=== PATIENT | female | born 1935 | race Caucasian/White ===

== ENCOUNTER 2019-08-01 08:17 | Inpatient (IN) | payer MEDICARE, SELFPAY ==
[2019-08-01] VITALS (12 sets, daily range): BP systolic 141–158; BP diastolic 55–83; PULSE 66–85; RESP 14–22; TEMP 35.7–36.6; O2SAT 94–100; BMI 29.9
--- NOTE | ~2019-08-01 | CT_ITS ---
EXAMINATION: CT brain wo con INDICATION: Head injury COMPARISON: 03/04/2019 TECHNIQUE: Standard unenhanced head CT. The dose-length product (DLP) was 756.67 mGy-cm. The mA was a djusted according to patient size. Iterative reconstruction technique was employed. FINDINGS: There is no acute intraparenchymal hemorrhage. No evidence of mass lesion. No evidence of a cute infarction. There is moderate periventricular and subcortical hypodensity probably related to sm all vessel ischemic disease. There is moderate prominence of the sulci and ventricles related to cere bral atrophy. Intracranial calcified cerebral atherosclerosis is noted. There are no extra-axial kapil ections. There is no mass effect or midline shift. Changes in the globes are likely from ocular lens surgery. The visualized sinuses and mastoid air cells are well aerated. IMPRESSION: 1. No acute intracranial abnormality. 2. Age related findings. Reviewed, dictated and finalized at location A.
--- NOTE | ~2019-08-01 | XR_ITS ---
EXAMINATION: XR chest 2V DATE: 08/02/2019 08:34 INDICATION: Left pneumothorax. TECHNIQUE: Frontal and lateral views of the chest were obtained. COMPARISON: Chest single view 08/01/2019 FINDINGS: The patient is rotated to her left. Again seen is elevation of left hemidiaphragm. There ar e airspace opacities at left lung base. There is mild atelectasis in left perihilar region. A calcifi ed right lung nodule is consistent with old granulomatous disease. There is a small left pneumothorax . No pleural effusion. Again seen are multiple acute left rib fractures. There are multiple old heale d right rib fractures. The heart size is normal. IMPRESSION: 1. Small left pneumothorax with interval improvement. 2. Worsened airspace opacities at left lung base, consistent with atelectasis versus pneumonia. 3. Multiple acute left rib fractures again seen. Reviewed, dictated and finalized at location A. IMPRESSION: 1. Small left pneumothorax with interval improvement. 2. Worsened airspace opacities at left lung base, consistent with atelectasis v ersus pneumonia. 3. Multiple acute left rib fractures again seen.
--- NOTE | ~2019-08-01 | XR_ITS ---
EXAMINATION: XR shoulder LT min 2V DATE: 08/01/2019 08:47 INDICATION: Left shoulder pain. Fall. TECHNIQUE: 4 views of left shoulder were obtained. COMPARISON: Left shoulder radiographs 01/23/2014 FINDINGS: There are fractures of left fourth, fifth, sixth, and seventh ribs. There is a small left p neumothorax. There are airspace opacities in all left lung zones. There is mild osteoarthritis of gle nohumeral joint and acromioclavicular joint. IMPRESSION: 1. Small left pneumothorax. Airspace opacities in left lung may be atelectasis. 2. Acute fractures of left fourth-seventh ribs. 3. I discussed this case with Dr. Lyle on 08/01/19 at 8:54 AM. Reviewed, dictated and finalized at location A.
--- NOTE | ~2019-08-01 | CT_ITS ---
EXAMINATION: CT cervical spine wo con DATE: 08/01/2019 20:23 INDICATION: Left neck pain TECHNIQUE: Computed tomography (CT) of the cervical spine was performed without intravenous contrast. The dose-length product (DLP) was 132.74 mGy-cm. Automated exposure control and iterative reconstruc tion technique were employed. COMPARISON: 03/04/2019 FINDINGS: Again noted is chronic deformity of the dens, consistent with healed fracture. There are 2 mm of stable anterolisthesis of C4 on C5 and C5 on C6. There is unchanged moderate loss of interverte bral disc space height at C5-6 and mild loss of intervertebral disc space height throughout the remai nder of the cervical spine. The prevertebral soft tissues are normal. There is no acute fracture. Sma ll degenerative osteophytes project from the anterior endplates of multiple vertebral bodies. There i s severe facet osteoarthritis in the lower cervical spine. The prevertebral soft tissues are normal. A tiny left apical pneumothorax is noted. IMPRESSION: 1. Severe cervical spondylosis without acute findings. 2. Small left apical pneumothorax, known diagnosis. Reviewed, dictated and finalized at location A.
--- NOTE | ~2019-08-01 | XR_ITS ---
EXAMINATION: XR chest 1V portable DATE: 08/03/2019 06:13 INDICATION: Left pneumothorax. TECHNIQUE: A single frontal view of the chest was obtained. COMPARISON: Chest 2 views 08/02/2019 FINDINGS: The patient is rotated to her left. There is persistent elevation of left hemidiaphragm. Th ere is a small left pneumothorax. There are airspace opacities in left perihilar region and at left l olu base. The heart size is normal. There is gas in left lateral chest wall. There are multiple acute left rib fractures. There are multiple old healed right rib fractures. IMPRESSION: 1. Small left pneumothorax with interval improvement. 2. Worsened airspace opacities in left perihilar region and at left lung base, consistent with atelec tasis versus pneumonia. 3. Multiple acute left rib fractures again seen. Reviewed, dictated and finalized at location A. IMPRESSION: 1. Small left pneumothorax with interval improvement. 2. Worsened airspace opacities in left perihilar region and at left lung base, consistent with atelectasis versus pneumonia. 3. Multiple acute left rib fractures again seen.
--- NOTE | ~2019-08-01 | XR_ITS ---
EXAMINATION: XR elbow LT min 3V DATE: 08/01/2019 08:47 INDICATION: Left elbow pain. Fall. TECHNIQUE: 4 views of left elbow were obtained. COMPARISON: Left elbow radiographs 01/23/2014 FINDINGS: Bone alignment is normal. No fracture. Joint spaces are well maintained. There are enthesop hytes at medial and lateral humeral epicondyles. There is no elbow joint effusion. IMPRESSION: 1. No fracture. Reviewed, dictated and finalized at location A. IMPRESSION: 1. No fracture.
--- NOTE | ~2019-08-01 | XR_ITS ---
EXAMINATION: XR chest 1V portable DATE: 08/01/2019 09:12 INDICATION: Left pneumothorax. TECHNIQUE: A single frontal view of the chest was obtained. COMPARISON: Chest single view 08/02/2017, chest CT 03/28/2012 FINDINGS: There is worsened elevation of left hemidiaphragm. There is mild atelectasis at left lung b ase. Calcified right lung nodules are consistent with old granulomatous disease. No pleural effusion. There is a small left pneumothorax. There are acute fractures of left fourth-seventh ribs. There are multiple old healed right rib fractures. There is dextroscoliosis of thoracic spine. IMPRESSION: 1. Small left pneumothorax. 2. Acute fractures of left fourth-seventh ribs. 3. Worsened elevation of left hemidiaphragm. Mild atelectasis at left lung base. Reviewed, dictated and finalized at location A. IMPRESSION: 1. Small left pneumothorax. 2. Acute fractures of left fourth-seventh ribs. 3. Worsened elevation of left hemidiaphragm. Mild atelectasis at left lung base .
--- NOTE | ~2019-08-01 | US_ITS ---
EXAMINATION: US carotid duplex BI DATE: 08/02/2019 13:08 INDICATION: Syncope. Left hemiparesis. TECHNIQUE: Grayscale, color Doppler, and pulsed Doppler images of the cervical carotid arteries were obtained. The degree of vessel stenosis is placed in one of the following categories: normal, <50%, 5 0-69%, >=70% but less than near-occlusion, near-occlusion, or total occlusion. Note that percent sten osis relative to normal distal artery lumen diameter is indirectly measured from velocity measurement s as described by Tony, et al. Radiology 2003; [id number]. COMPARISON: None. FINDINGS: RIGHT: The right common carotid artery (CCA) peak systolic velocity (PSV) is 71 cm/s. The right internal car otid artery (ICA) PSV is 53 cm/s. The right ICA end-diastolic velocity (EDV) is 16 cm/s. The right IC A/CCA PSV ratio is 0.7. Grayscale and color Doppler images yield an estimate of <50% diameter reducti on from plaque in the ICA. There is antegrade flow in the right vertebral artery. LEFT: The left CCA PSV is 66 cm/s. The left ICA PSV is 60 cm/s. The left ICA EDV is 15 cm/s. The left ICA/C CA PSV ratio is 0.9. Grayscale and color Doppler images yield an estimate of <50% diameter reduction from plaque in the ICA. There is antegrade flow in the left vertebral artery. IMPRESSION: 1. <50% stenosis in the right internal carotid artery. 2. <50% stenosis in the left internal carotid artery. Reviewed, dictated and finalized at location A.
--- NOTE | 2019-08-01 08:26 | ED.FALL ---
HPI - Fall General Chief Complaint: Fall Stated Complaint: fall Time Seen by Provider: 08/01/19 08:24 Source: patient Mode of arrival: EMS Limitations: no limitations History of Present Illness HPI Narrative: An 84 y/o female pt presents to the ed via EMS from home with c/o ground-level fall in her home. Pt states that she was backing up with her walker and ran into her bookcase. She states she hit her lt shoulder on the bookcase and fell. She denies dizziness prior to falling, hitting her head or LOC. Pt notes pain to her lt shoulder, pain to her lt elbow, tingling to her LUE, but denies neck pain, CP or hip pain. She states that she was diaphoretic after falling, and states that she was unable to get up and walk after the fall. Pt rates her shoulder pain as a 10 on the pain scale. She notes a history of a broken neck in 2017, but denies any previous injury to her lt shoulder. She reports her rt hand as being her dominant hand. Pt reports being prescribed Gabapentin and Hydrocodone x several years. She notes taking Hydrocodone BID for chronic back pain and states that her last dose was last night and that she missed her morning dose today. Pt denies being prescribed anticoagulation therapy. complaint: fall Onset (ago): minute(s) Fall from: standing Place fall occurred: home Loss of consciousness: none Symptoms prior to fall: none Context: tripped/slipped Location of injury - extremities: Left: shoulder and elbow Severity scale (1-10): 10 Associated symptoms (after fall): unable to walk and other (diaphoretic, resolved) Related Data Home Medications Medication Instructions Recorded Confirmed ascorbic acid (vitamin C) [Vitamin 500 mg PO DAILY 08/01/19 08/01/19 C] yzlwouw-qidjtwerbaljp-kqlithla 1 tablet PO Q4-6H PRN 08/01/19 08/01/19 [Excedrin Migraine] calcium carbonate [Calcium 500] 500 mg PO QID 08/01/19 08/01/19 cholecalciferol (vitamin D3) 25 mcg PO DAILY 08/01/19 08/01/19 [Vitamin D3] coQ10 (ubiquinol) 50 mcg PO DAILY 08/01/19 08/01/19 fluticasone propionate 1 spray INTRANASAL DAILY 08/01/19 08/01/19 gabapentin 400 mg PO BID 08/01/19 08/01/19 garlic 200 mg PO DAILY 08/01/19 08/01/19 gelatin 650 mg PO DAILY 08/01/19 08/01/19 inulin [Fiber Gummies] g PO DAILY 08/01/19 lovastatin 40 mg PO DAILY 08/01/19 08/01/19 lutein 20 mg PO DAILY 08/01/19 08/01/19 montelukast 10 mg PO DAILY 08/01/19 08/01/19 multivit with min-folic acid 200 mcg PO DAILY 08/01/19 08/01/19 [Adult Multivitamin Gummies] pantoprazole 40 mg PO BID 08/01/19 08/01/19 tiotropium bromide [Spiriva 2 puff INHALATION HS 08/01/19 08/01/19 Respimat] vitamin E 400 unit PO DAILY 08/01/19 08/01/19 Allergies Allergy/AdvReac Type Severity Reaction Status Date / Time CAYETANO Inhibitors Allergy Severe Unknown Verified 08/01/19 08:29 meperidine Allergy Unknown Unknown Verified 08/01/19 08:29 Sulfa (Sulfonamide Allergy Unknown Unknown Verified 08/01/19 08:29 Antibiotics) sulfanilamide Allergy Unknown Unknown Verified 08/01/19 08:29 sulfur dioxide Allergy Unknown Unknown Verified 08/01/19 08:29 Review of Systems Review of Systems: All systems reviewed & are unremarkable except as noted in HPI and below Constitutional: Constitutional: Reports excessive sweating (after fall) Cardiovascular: Cardiovascular: Denies chest pain Musculoskeletal: Musculoskeletal: Reports arthralgias (lt shoulder, lt elbow), Denies neck pain, Reports tingling (to LUE) and Denies other (hip pain) Neurologic: Denies dizziness (prior to fall) and Denies other (LOC) [facility] Past Medical History Medical History (Updated 08/01/19 @ 15:43 by Francia Lyle MD) Asthma C2 cervical fracture Type 2 odontoid fracture sustained in fall 05/07/2016, requiring no cervical intervention. 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 Diastolic dysfunction without heart failure On echocardiogram in August 2011. Ejection fraction at that time was 54%. GERD (gastroesophag
[2019-08-01] MEDS: ONDANSETRON HCL ODT 4 MG TABLET PO (08:59)
--- NOTE | 2019-08-01 09:40 | ECG_ITS ---
Measurements Intervals [place] Rate: 70 P: 47 TN: 194 QRS: -1 QRSD: 77 T: 46 QT: 415 QTc: 448 Interpretive Statements SINUS RHYTHM WITH SINUS ARRHYTHMIA LOW QRS VOLTAGE IN LIMB LEADS BORDERLINE T WAVE ABNORMALITY- INFERIOR LEADS BASELINE ARTIFACT- I, II, AVR, AVF, V1 BORDERLINE ECG Electronically Signed On 08-01-2019 10:18:17 CDT by Adam Wynn D.O.
[2019-08-01 09:52] LABS: Basophils Percent Auto 0.3 % (0.2-1.2); Eosinophils Percent Auto 0.1 % (0-4.4); Hematocrit 46.5 % (37.0-47.0); Hemoglobin 15.4 g/dL (12.0-15.0); Immature Granulocyte Absolute 0.07 K/mm3 (0.00-0.031); Immature Granulocyte Percent A 0.5 % (0-0.5); Lymphocytes Absolute Auto 1.09 K/mm3 (0.9-3.2); Lymphocytes Percent Auto 7.9 % (18.3-44.2); Mean Corpuscular HGB Conc 33.1 g/dl (32-36); Mean Corpuscular Volume 90.6 fl (80-100); Mean Platelet Volume 10.4 fl (7.4-10.4); Monocytes Absolute Auto 0.6 K/mm3 (0.1-0.6); Monocytes Percent Auto 4.3 % (2.6-8.5); Neutrophils Absolute Auto 12.1 K/mm3 (1.3-6.7); Neutrophils Percent Auto 86.9 % (45.5-73.1); Platelet Count Result 200 k/mm3 (150-375); Red Blood Count 5.13 M/mm3 (4.2-5.4); Red Cell Distribution Width 13.1 % (11.5-14.5); White Blood Count 13.9 K/mm3 (4.5-10.0)
[2019-08-01 10:02] LABS: Prothrombin Time 12.5 Seconds (11.1-14.7)
[2019-08-01 10:04] LABS: Alanine Aminotransferase 15 U/L (4-35); Albumin Level 4.2 g/dL (3.5-5.1); Alkaline Phosphatase 61 U/L (38-126); Aspartate Amino Transferase 27 U/L (14-36); Bilirubin,Total 0.7 mg/dL (0.2-1.3); Blood Urea Nitrogen 14 mg/dL (7-17); Calcium 9.4 mg/dL (8.4-10.2); Carbon Dioxide 28 mmol/L (22-30); Chloride 102 mmol/L (98-107); Estimated Glomerular Filt Rate > 60; Glucose 108 mg/dL (65-105); Potassium 4.2 mmol/L (3.4-5.0); Sodium 137 mmol/L (137-145)
--- NOTE | 2019-08-01 11:32 | ADMGEN ---
This patient, Mitra Verde, was admitted to Medical Room 253-01. Patient/family oriented to hospital policies and general routines including ID bracelet, bed and alarms, visiting hours, pain management, procedures, bathroom and other care routines, personal items, smoking policy, room service/diet, and visiting hours. Valuables list has been completed. Information on how to activate the Rapid Response Team has been discussed. Patient/Family are encouraged to report perceived risks to care and to ask questions if they do not understand what they are told or what they should do.
[2019-08-01] MEDS: ONDANSETRON INJ 4 MG/2 ML VIAL IV PUSH (11:45)
[2019-08-01] MEDS: MORPHINE SULFATE 2 MG/ML INJ IV PUSH ×2 (11:45→19:57)
--- NOTE | 2019-08-01 11:52 | PM.IMHP ---
H&P: HPI History of Present Illness Chief complaint: Lt Pneumothorax Narrative: Mitra Verde is a 84 year old female who presented to the ED today after a fall at home occuring at about 7 AM this morning. Pt's daughter wasat bedside in the ED and stated the pt's legs give out often and this is not her first fall, however she usually remembers falling. Pt lives alone and has LifeAlert but she was able to get up by herself after today's fall and call her daughter. Pt ambulated into the ED with a walker. Pt c/o SOB but states she has this all the time. She reports a HI, a dry cough, and a PMHx of osteoporosis wiht two previous knee repalacements, but denies neck pain and N/V. Pt is on Gabapentin and ASA 250 mg along with Protonix for reflux and a lipid lowering drug. She also has chronic back pain for which she takes Carleton for fairly frequently. Review of Systems Constitutional: Constitutional: Reports no additional constitutional complaints, Reports fatigue and Denies malaise Eyes: Eyes: Denies change in vision and Denies loss of vision ENT: Reports Normal hearing present, Denies change in voice, Denies dizziness, Denies hoarseness and Denies sore throat Cardiovascular: Cardiovascular: Denies chest pain, Denies leg edema and Denies dyspnea Respiratory: Respiratory: Denies cough, Denies dyspnea and Denies wheezing Gastrointestinal: Gastrointestinal: Denies hematochezia, Denies change in bowel habits and Denies heartburn Comments: States she typically has a bowel movement about every other day. She typically takes Senokot will every other day to try to keep her stool soft. She did not take Senokot today but did take it yesterday. Genitourinary: Genitourinary: Denies urinary frequency and Denies urinary incontinence Musculoskeletal: Musculoskeletal: Reports back pain and Reports arthralgias Comments: Patient has a long history of degenerative disc disease. She takes Carleton at home for this. Neurologic: Reports Normal hearing present, Denies confusion, Denies dizziness, Denies loss of vision, Denies memory loss and Denies seizure-like activity Psychiatric: Psychiatric: Denies confusion, Denies depression and Denies memory loss Endocrine: Endocrine: Denies cold intolerance and Reports fatigue Hematologic/Lymphatic: Hematologic/Lymphatic: Denies easy bleeding and Denies easy bruising Allergic/Immunologic: Allergic/Immunologic: Denies wheezing PMFSH Past Medical History Medical History Arthritis Asthma Fibroids breast fibroids Hypertension Osteoporosis Uterine cancer Wears glasses Surgical History Surgical History History of bilateral knee replacement History of hysterectomy Social History Social History Smoking status: Former smoker Smoking end date: 04/26/1962 Alcohol intake: never Substance use: never Gender identity (if verbalized by the patient): Female Spiritual care concerns: No Agree to blood products: Yes Meds Home Medications and Allergies Home Medications Medication Instructions Recorded Confirmed Type ascorbic acid (vitamin C) [Vitamin 500 mg PO DAILY 08/01/19 08/01/19 History C] ragzwed-qbqtodfmgkhai-tlzqshxe 1 tablet PO Q4-6H PRN 08/01/19 08/01/19 History [Excedrin Migraine] calcium carbonate [Calcium 500] 500 mg PO QID 08/01/19 08/01/19 History cholecalciferol (vitamin D3) 25 mcg PO DAILY 08/01/19 08/01/19 History [Vitamin D3] coQ10 (ubiquinol) 50 mcg PO DAILY 08/01/19 08/01/19 History fluticasone propionate 1 spray INTRANASAL DAILY 08/01/19 08/01/19 History gabapentin 400 mg PO BID 08/01/19 08/01/19 History garlic 200 mg PO DAILY 08/01/19 08/01/19 History gelatin 650 mg PO DAILY 08/01/19 08/01/19 History inulin [Fiber Gummies] g PO DAILY 08/01/19 History lovastatin 40 mg PO DAILY 08/01/19
[2019-08-01] MEDS: FLUTICASONE PROPIONATE 0.05% NA SPR 16 GM BTL (*BKC) 1 SPRAY NASAL (13:43)
[2019-08-01] MEDS: IBUPROFEN 600 MG TABLET PO ×3 (13:43→23:47)
[2019-08-01] MEDS: LOVASTATIN 20 MG TABLET 40 MG PO (13:44)
[2019-08-01] MEDS: ASCORBIC ACID 500 MG TABLET PO (13:45)
[2019-08-01] MEDS: polyethylene glycoL 3350 17 GM POWD.PACK PO (13:45)
[2019-08-01] MEDS: MONTELUKAST SODIUM 10 MG TABLET PO (13:45)
[2019-08-01] MEDS: ENOXAPARIN 40 MG/0.4 ML SYRINGE SUB-Q (13:45)
--- NOTE | 2019-08-01 14:11 | PC.NURSE ---
Call to Dr. Gongora's office to clarify orders for chest tube set up at bedside. Orders in for 18, 20, 22 chest tubes with chest tube insertion tray. Hospital does not stock size 18, 22 chest tubes. Awaiting call back for clarification. Size 20 chest tube and chest tube insertion tray at bedside with 14 gauge angiocath.
--- NOTE | 2019-08-01 15:00 | WPDCN ---
Assessment and Plan Assessment and plan (1) Traumatic fracture of ribs of left side with pneumothorax: Onset Date: ~08/01/19 Code(s): S22.42XA - Multiple fractures of ribs, left side, initial encounter for closed fracture; S27.0XXA - Traumatic pneumothorax, initial encounter Status: Acute Assessment and Plan: Sustained in a mechanical fall earlier today. Small pneumothorax noted on imaging, management per surgery. Encourage incentive spirometry. Brain CT and cervical spine CT ordered given head trauma, and history of cervical fractures. (2) Asthma: Code(s): J45.909 - Unspecified asthma, uncomplicated Status: Acute Assessment and Plan: No acute issues. Continue maintenance inhalers. (3) Hyperlipidemia: Onset Date: Unknown Code(s): E78.5 - Hyperlipidemia, unspecified Status: Acute Assessment and Plan: Continue lovastatin. LFTs within normal limits. (4) GERD (gastroesophageal reflux disease): Code(s): K21.9 - Gastro-esophageal reflux disease without esophagitis Status: Acute Assessment and Plan: Continue pantoprazole. (5) Leukocytosis: Code(s): D72.829 - Elevated white blood cell count, unspecified Status: Acute Assessment and Plan: She gives no history to suggest underlying infection. Possibly just a stress response. (6) Essential hypertension: Code(s): I10 - Essential (primary) hypertension Status: Acute Assessment and Plan: After weight loss, the patient is no longer on antihypertensives. Blood pressures were reviewed and they are relatively well controlled with systolics in the 140s mainly. Likely these are elevated due to pain, and we will just continue to monitor for now. Additional Plan Thank you for allowing us to participate in this patient's care. Do not hesitate to contact us with any questions. We will follow with you. Supervising physician for this medical consultation is Dr. Mukund Martin. HPI Data of Consult Date/Time: 08/01/19 13:15 Requesting Physician: Devendra Gongora MD Primary Care Provider: PHYSICIAN NOT ON STAFF Consult Narrative Narrative: Mitra Verde is an 84-year-old female whom the hospitalist service has been consulted for hypertension. Prior to arrival she was ambulating backwards with her walker, when she fell backwards, hitting the left side of her upper body on a bookcase before falling to the ground. She was unable to get herself up in used Life Alert to call for help. She was found to have left rib fractures and a small pneumothorax, prompting her admission. At the time my evaluation, she complains of pain about her left shoulder and into the left side of the posterior neck, and in fact she is having a difficult time raising her left arm forward due to pain. She did hit her head in the fall, but did not sustain any abrasions or hematoma at that site. She denies feeling lightheaded and dizzy prior to the fall, stating it was simply a mechanical fall. There was no loss of consciousness. In any event, her blood pressures have been in the 140s to 150 systolic. With further questioning, she does mention being on antihypertensives in the past, but she lost weight and has been off of those medications for about a year or so. Review of Systems Review of Systems: Narrative: Twelve systems were reviewed with pertinent positives and negatives as per HPI. She denies feeling lightheaded and dizzy prior to the fall. No vertigo. No diplopia. She denies focal weakness and paresthesias. No fever, chills, or sweats. She denies sinus congestion, rhinorrhea, otalgia, and odynophagia. No cough. No chest pain or shortness of breath. Appetite is stable. She denies nausea, vomiting, and diarrhea. No dysuria, urgency, or hesitancy. Except as documented, all other systems were reviewed and are negative. [facility] Past
[2019-08-01] MEDS: PANTOPRAZOLE 40 MG TABLET PO (16:13)
[2019-08-01] MEDS: DOCUSATE SODIUM 100 MG CAPSULE PO (16:13)
--- NOTE | 2019-08-01 16:18 | PC.NURSE ---
Per patient her son Medardo can bring her spiriva respimat from home for use during hospital stay.
--- NOTE | 2019-08-01 17:40 | PC.NURSE ---
Patient's home medication spiriva respimat sent to pharmacy for verification to use during hospitalization.
--- NOTE | 2019-08-01 18:04 | PHAR ---
The patient's home med of Spiriva Respimat has been verified.
[2019-08-01] MEDS: GABAPENTIN 400 MG CAPSULE PO (20:51)
--- NOTE | 2019-08-01 21:51 | PCRCNOTE ---
Patient refused to use our Albuterol inhaler. Patient brought her Spiriva Respimat inhaler from home, which she wanted to use. It was administered at 2019July 31.
[2019-08-02] VITALS (12 sets, daily range): BP systolic 102–141; BP diastolic 47–86; PULSE 45–93; RESP 16–20; TEMP 36.1–36.7; O2SAT 94–98
[2019-08-02 00:13] LABS: Add Urine Microscopic? YES; Appearance Urine Cloudy (Clear); Bacteria Urine Trace /hpf; Bilirubin Urine Negative (Negative); Blood Urine Negative (Negative); Glucose Urine UA Negative (Negative); Ketones Urine 1+ mg/dL (Negative); Leukocyte Esterase Ur Negative LEU/UL (Negative); Mucus Urine Heavy /lpf; Nitrate Urine Negative (Negative); Protein Urine 1+ mg/dL (Negative); RBC Urine 0-2 /hpf (0-2); Specific Grav Ur 1.026 (1.001-1.035); Squamous Epithelial Cell Urine Occasional /hpf (Few)
[2019-08-02 00:14] LABS: Color Urine Yellow (Yellow)
[2019-08-02 05:10] LABS: Basophils Percent Auto 0.3 % (0.2-1.2); Eosinophils Absolute Auto 0.1 K/mm3 (0-0.3); Eosinophils Percent Auto 0.9 % (0-4.4); Hematocrit 39.1 % (37.0-47.0); Hemoglobin 12.6 g/dL (12.0-15.0); Immature Granulocyte Absolute 0.06 K/mm3 (0.00-0.031); Immature Granulocyte Percent A 0.7 % (0-0.5); Lymphocytes Absolute Auto 1.79 K/mm3 (0.9-3.2); Lymphocytes Percent Auto 20.4 % (18.3-44.2); Mean Corpuscular HGB Conc 32.2 g/dl (32-36); Mean Corpuscular Hemoglobin 29.7 pg (26-34); Mean Corpuscular Volume 92.2 fl (80-100); Mean Platelet Volume 10.5 fl (7.4-10.4); Monocytes Absolute Auto 0.8 K/mm3 (0.1-0.6); Monocytes Percent Auto 9.2 % (2.6-8.5); Neutrophils Percent Auto 68.5 % (45.5-73.1); Platelet Count Result 158 k/mm3 (150-375); Red Blood Count 4.24 M/mm3 (4.2-5.4); Red Cell Distribution Width 13.2 % (11.5-14.5); White Blood Count 8.8 K/mm3 (4.5-10.0)
[2019-08-02 05:32] LABS: Blood Urea Nitrogen 19 mg/dL (7-17); Calcium 8.5 mg/dL (8.4-10.2); Carbon Dioxide 28 mmol/L (22-30); Chloride 100 mmol/L (98-107); Estimated CRCL calculation 47 ml/min; Estimated Glomerular Filt Rate > 60; Glucose 102 mg/dL (65-105); Magnesium 1.9 mg/dL (1.6-2.3); Potassium 4.1 mmol/L (3.4-5.0); Sodium 132 mmol/L (137-145)
[2019-08-02] MEDS: IBUPROFEN 600 MG TABLET PO ×3 (05:56→17:09)
--- NOTE | 2019-08-02 08:00 | PC.NURSE ---
Patient to XR per stretcher
[2019-08-02] MEDS: GABAPENTIN 400 MG CAPSULE PO ×2 (09:11→20:37)
[2019-08-02] MEDS: MONTELUKAST SODIUM 10 MG TABLET PO (09:11)
[2019-08-02] MEDS: PANTOPRAZOLE 40 MG TABLET PO ×2 (09:11→17:09)
[2019-08-02] MEDS: DOCUSATE SODIUM 100 MG CAPSULE PO ×2 (09:11→17:09)
[2019-08-02] MEDS: polyethylene glycoL 3350 17 GM POWD.PACK PO (09:12)
[2019-08-02] MEDS: LOVASTATIN 20 MG TABLET 40 MG PO (09:12)
[2019-08-02] MEDS: ASCORBIC ACID 500 MG TABLET PO (09:12)
[2019-08-02] MEDS: ENOXAPARIN 40 MG/0.4 ML SYRINGE SUB-Q (09:12)
[2019-08-02] MEDS: FLUTICASONE PROPIONATE 0.05% NA SPR 16 GM BTL (*BKC) 1 SPRAY NASAL (09:13)
--- NOTE | 2019-08-02 10:35 | PC.NURSE ---
Rapid response called. Patient was up in the chair. M[employer] BE[employer]TER was getting vital signs and she was talking to her and then she slumped over in the chair and stopped talking. Patient returned to bed with staff assist. See Rapid response documentation.
[2019-08-02 10:46] LABS: Glucose Point of Care 106 (65-105)
--- NOTE | 2019-08-02 10:48 | ECG_ITS ---
Measurements Intervals [place] Rate: 72 P: -4 SD: 192 QRS: -12 QRSD: 67 T: 29 QT: 373 QTc: 411 Interpretive Statements SINUS RHYTHM DELAYED PRECORDIAL R/S TRANSITION INFERIOR INFARCT, AGE INDETERMINATE BASELINE ARTIFACT- V6 ABNORMAL ECG Electronically Signed On 08-02-2019 11:46:01 CDT by Adam Wynn D.O.
[2019-08-02] MEDS: SODIUM CHLORIDE 0.9% IV 500 ML IV CONT (11:05)
--- NOTE | 2019-08-02 12:05 | PM.IMPN ---
Progress Note: A&P Assessment and Plan (1) Traumatic fracture of ribs of left side with pneumothorax: Onset Date: ~08/01/19 Code(s): S22.42XA - Multiple fractures of ribs, left side, initial encounter for closed fracture; S27.0XXA - Traumatic pneumothorax, initial encounter Status: Acute Assessment and Plan: Sustained by mechanical fall. Small pneumothorax noted on imaging, management per surgery. Atelectasis on imaging. Continue to encourage incentive spirometry. CT brain obtained due to fall shows no acute intracranial abnormality. CT C-spine shows severe spondylosis with no acute fractures. (2) Syncope: Qualifiers: Syncope type: unspecified Qualified Code(s): R55 - Syncope and collapse Code(s): R55 - Syncope and collapse Status: Acute Assessment and Plan: Rapid response called at 10:35 AM when patient was sitting up in bedside chair and per nursing, became less responsive and clammy. She was moved back to bed and woke up, became more responsive. Blood sugar 106. Blood pressure 113/50. O2 saturation 96% on 2L, pulse 61bpm. On reassessment, she is awake and oriented x4. 500 mL NS bolus ordered. Carotid Dopplers are within normal limits. Repeat EKG reviewed and looks similar compared to yesterday's EKG; she has no chest pain other than her left lateral rib pain. She had a CT brain obtained last night with no acute findings. Suspect vasovagal syncope. Will monitor. Patient is modifed code status, medications only. (3) Essential hypertension: Code(s): I10 - Essential (primary) hypertension Status: Acute Assessment and Plan: Patient noted that she had previously been on antihypertensive medication that was subsequently discontinued after her weight loss. Blood pressures reviewed; were bit elevated yesterday likely secondary to pain. Today BP on the lower end of normal. 500 mL normal saline bolus administered and monitor BP. (4) Asthma: Qualifiers: Asthma complication type: uncomplicated Asthma persistence: intermittent Asthma severity: mild Qualified Code(s): J45.20 - Mild intermittent asthma, uncomplicated Code(s): J45.909 - Unspecified asthma, uncomplicated Status: Chronic Assessment and Plan: No acute issues. Continue albuterol inhaler. (5) Hyperlipidemia: Onset Date: Unknown Qualifiers: Hyperlipidemia type: unspecified Qualified Code(s): E78.5 - Hyperlipidemia, unspecified Code(s): E78.5 - Hyperlipidemia, unspecified Status: Chronic Assessment and Plan: Continue home statin therapy. (6) GERD (gastroesophageal reflux disease): Qualifiers: Esophagitis presence: without esophagitis Qualified Code(s): K21.9 - Gastro-esophageal reflux disease without esophagitis Code(s): K21.9 - Gastro-esophageal reflux disease without esophagitis Status: Chronic Assessment and Plan: No acute issues. Continue pantoprazole. (7) Leukocytosis: Qualifiers: Leukocytosis type: unspecified Qualified Code(s): D72.829 - Elevated white blood cell count, unspecified Code(s): D72.829 - Elevated white blood cell count, unspecified Status: Resolved Assessment and Plan: Resolved today. No infectious process is suspected at this time. May be related to stress reaction. Additional Plan Thank you for allowing me to participate this patient's care. Will follow with you while she is here. Subjective Date/time seen: 08/02/19 0930 Interval history: Ms. Verde is an 84yo F admitted due to a small pneumothorax after a fall. She reported feeling well other than her left-sided rib pain. She denied feeling short of breath, no cough. To
--- NOTE | 2019-08-02 17:54 | PM.PNGS ---
Progress Note: A&P Assessment and Plan (1) Traumatic fracture of ribs of left side with pneumothorax: Onset Date: ~08/01/19 Code(s): S22.42XA - Multiple fractures of ribs, left side, initial encounter for closed fracture; S27.0XXA - Traumatic pneumothorax, initial encounter Status: Acute Assessment and Plan: Have ordered a chest x-ray again for tomorrow morning. From my point of view if this is stable patient does not need further monitoring. Could go home on a pain medicine regimen for her rib fractures if she passes physical therapy tests for stability with her walker. Not If not patient should be considered for a rehab/ ECF stay. (2) Left rib fracture: Onset Date: ~08/01/19 Code(s): S22.32XA - Fracture of one rib, left side, initial encounter for closed fracture Status: Acute Assessment and Plan: Stable, pain control fairly good (3) Fall from ground level: Onset Date: ~08/01/19 Code(s): W18.30XA - Fall on same level, unspecified, initial encounter Status: Acute Assessment and Plan: Some soreness in her left shoulder but x-ray showed no fractures. Working with physical therapy. (4) Syncope: Onset Date: ~08/02/19 Qualifiers: Syncope type: unspecified Qualified Code(s): R55 - Syncope and collapse Code(s): R55 - Syncope and collapse Status: Acute Assessment and Plan: See medicine note for rapid response issues Additional Plan Repeat chest x-ray in the morning. Await further medicine evaluation regarding the possibility of vasovagal versus arrhythmias as a cause for syncope and possibly cause for her original fall. Continue PT with home evaluation for saftey. Encourage IS Subjective Subjective Date/Time Seen: 08/02/19 17:54 Pt. resting easily when I entered the room. Denies pain. Has an appetite. Review of Systems Constitutional: Constitutional: Reports no additional constitutional complaints ENT: Reports other (Mucous Membranes moist.) Cardiovascular: Cardiovascular: Denies dyspnea Respiratory: Respiratory: Denies pain on inspiration and Denies dyspnea Musculoskeletal: Musculoskeletal: Reports other (No calf swelling or edema) Integumentary/Breasts: Skin/Breast: Reports system reviewed and no additional complaints, except as docu Exam Const: General: cooperative, no acute distress, alert and awake Orientation/consciousness: patient oriented x3 HENMT: Mouth: Yes moist mucous membranes Neck: Neck: normal visual inspection Chest: Chest palpation & inspection: normal inspection of the chest Resp: Effort & Inspection: normal respiratory effort Auscultation: clear to auscultation bilaterally Cardio: Jugular venous distension: no JVD Rate: regular rate Rhythm: regular rhythm GI: Rectal Exam: deferred Psych: Mental Status: mental status grossly normal Speech and movement: Normal speech and movement present Affect: normal affect Thought content: Yes Normal thought content present Objective Data Vital Signs Vital Signs: Vital Signs - 24 hr 08/01/19 21:41 08/01/19 22:00 08/02/19 02:00 Temperature 35.7 C L 36.1 C L Pulse Rate 78 85 93 Respiratory Rate 16 20 Blood Pressure 146/79 H 141/86 H Pulse Oximetry 95 95 98 08/02/19 06:00 08/02/19 10:32 08/02/19 10:41 Temperature 36.7 C 36.3 C L Pulse Rate 76 45 L 59 L Respiratory Rate 20 16 16 Blood Pressure 124/68 113/50 L 111/50 L Pulse Oximetry 98 96 97 08/02/19 11:05 08/02/19 12:00 08/02/19 13:19 Temperature Pulse Rate 61 68 79 Respiratory Rate 17 Blood Pressure 113/50 L 115/47 L Pulse Oximetry 97 08/02/19 15:27 08/02/19 16:00 Temperature 36.6 C Pulse Rate 84 77 Respiratory Rate 18 Blood Pressure 120/74 Pulse Oximetry 95 Intake/Output Intake/Output: Intake & Output 07/30/19 07/31/19 08/01/19 08/02/19 23:59 23:59 23:59 23:59 Intake Total 680 1190 Output Total 350 1075 Balance 330 115
[2019-08-02] MEDS: ALBUTEROL SULFATE (*SP) AEROSOL 1 PUFF 2 PUFF INHALATION (20:13)
[2019-08-03] VITALS (11 sets, daily range): BP systolic 95–129; BP diastolic 51–63; PULSE 56–96; RESP 16–20; TEMP 36.4–36.8; O2SAT 92–98
[2019-08-03] MEDS: IBUPROFEN 600 MG TABLET PO ×3 (00:35→12:23)
[2019-08-03] MEDS: FLUTICASONE PROPIONATE 0.05% NA SPR 16 GM BTL (*BKC) 1 SPRAY NASAL (08:24)
[2019-08-03] MEDS: MONTELUKAST SODIUM 10 MG TABLET PO (08:24)
[2019-08-03] MEDS: ENOXAPARIN 40 MG/0.4 ML SYRINGE SUB-Q (08:24)
[2019-08-03] MEDS: PANTOPRAZOLE 40 MG TABLET PO (08:24)
[2019-08-03] MEDS: GABAPENTIN 400 MG CAPSULE PO (08:24)
[2019-08-03] MEDS: ASCORBIC ACID 500 MG TABLET PO (08:24)
[2019-08-03] MEDS: LOVASTATIN 20 MG TABLET 40 MG PO (08:24)
[2019-08-03] MEDS: polyethylene glycoL 3350 17 GM POWD.PACK PO (08:24)
[2019-08-03] MEDS: DOCUSATE SODIUM 100 MG CAPSULE PO (08:25)
[2019-08-03] MEDS: ALBUTEROL SULFATE (*SP) AEROSOL 1 PUFF 2 PUFF INHALATION ×3 (08:53→15:58)
--- NOTE | 2019-08-03 09:02 | PM.PNGS ---
Progress Note: A&P Assessment and Plan (1) Left rib fracture: Onset Date: ~08/01/19 Code(s): S22.32XA - Fracture of one rib, left side, initial encounter for closed fracture Status: Acute Assessment and Plan: Stable, pain control fairly good (2) Fall from ground level: Onset Date: ~08/01/19 Code(s): W18.30XA - Fall on same level, unspecified, initial encounter Status: Acute Assessment and Plan: Some soreness in her left shoulder but x-ray showed no fractures. Working with physical therapy. (3) Syncope: Onset Date: ~08/02/19 Qualifiers: Syncope type: unspecified Qualified Code(s): R55 - Syncope and collapse Code(s): R55 - Syncope and collapse Status: Acute Assessment and Plan: See medicine note for rapid response issues (4) Traumatic fracture of ribs of left side with pneumothorax: Onset Date: ~08/01/19 Code(s): S22.42XA - Multiple fractures of ribs, left side, initial encounter for closed fracture; S27.0XXA - Traumatic pneumothorax, initial encounter Status: Acute Assessment and Plan: Pneumothorax appears to be stable. Rib fractures stable. No need to continue daily chest x-rays. Once patient is mobile enough to go to extended care rehab would recommend that. Will need chronic pain control for fractured ribs for the next 4-6 weeks. Additional Plan Repeat chest x-ray in about a week as an out pt. Await further medicine evaluation regarding the possibility of vasovagal versus arrhythmias as a cause for syncope and possibly cause for her original fall. Continue PT with home evaluation for saftey. Encourage IS in view of CXR findings. Okay with me to go to extended care rehab today or tomorrow as per Medicine. Subjective Subjective Date/Time Seen: 08/03/19 09:02 Patient lying in bed when I entered the room. Denies abdominal pain. States she has some shortness of breath periodically but it is not bad. Appears to be off oxygen now. I explained what her chest x-ray is showing. Left pneumothorax is getting smaller. There are some signs of atelectasis versus pneumonia. Patient states she does not feel safe going home and is willing to go to an extended care facility rehab. Hopefully case management is working on same. Review of Systems Constitutional: Constitutional: Reports no additional constitutional complaints, Reports fatigue and Denies malaise Eyes: Eyes: Denies change in vision and Denies loss of vision ENT: Reports Normal hearing present, Denies change in voice, Denies dizziness, Denies hoarseness, Denies sore throat and Reports other (Mucous Membranes moist.) Cardiovascular: Cardiovascular: Denies chest pain, Denies leg edema and Denies dyspnea Respiratory: Respiratory: Denies cough, Denies pain on inspiration, Denies dyspnea and Denies wheezing Gastrointestinal: Gastrointestinal: Denies hematochezia, Denies change in bowel habits and Denies heartburn Genitourinary: Genitourinary: Denies urinary frequency and Denies urinary incontinence Musculoskeletal: Musculoskeletal: Reports back pain, Reports arthralgias and Reports other (No calf swelling or edema) Integumentary/Breasts: Skin/Breast: Reports system reviewed and no additional complaints, except as docu Neurologic: Reports Normal hearing present, Denies confusion, Denies dizziness, Denies loss of vision, Denies memory loss and Denies seizure-like activity Psychiatric: Psychiatric: Denies confusion, Denies depression and Denies memory loss Endocrine: Endocrine: Denies cold intolerance and Reports fatigue Hematologic/Lymphatic: Hematologic/Lymphatic: Denies easy bleeding and Denies easy bruising Allergic/Immunologic: Allergic/Immunologic: Denies wheezing Exam Const: General: cooperative, no acute distress, alert and awake; No confusion Orientation/consciousness: patient oriented x3 and No confusion HENMT: Mouth: Yes moist mucous membranes
--- NOTE | 2019-08-03 10:48 | PM.IMPN ---
Progress Note: A&P Assessment and Plan (1) Traumatic fracture of ribs of left side with pneumothorax: Onset Date: ~08/01/19 Code(s): S22.42XA - Multiple fractures of ribs, left side, initial encounter for closed fracture; S27.0XXA - Traumatic pneumothorax, initial encounter Status: Acute Assessment and Plan: Sustained by mechanical fall. Small pneumothorax noted on imaging, management per surgery. Atelectasis on imaging. Continue to encourage incentive spirometry. CT brain obtained due to fall shows no acute intracranial abnormality. CT C-spine shows severe spondylosis with no acute fractures. Anticipate possible discharge to [facility] tomorrow. She is medically stable for discharge from hospitalist standpoint. (2) Syncope: Onset Date: ~08/02/19 Qualifiers: Syncope type: unspecified Qualified Code(s): R55 - Syncope and collapse Code(s): R55 - Syncope and collapse Status: Acute Assessment and Plan: Rapid response yesterday due to syncope. Suspect vasovagal episode. Telemetry shows some PVCs not felt to be contributing. (3) Essential hypertension: Code(s): I10 - Essential (primary) hypertension Status: Acute Assessment and Plan: Patient noted that she had previously been on antihypertensive medication that was subsequently discontinued after her weight loss. Blood pressures reviewed and normal/low end of normal. (4) Asthma: Qualifiers: Asthma complication type: uncomplicated Asthma persistence: intermittent Asthma severity: mild Qualified Code(s): J45.20 - Mild intermittent asthma, uncomplicated Code(s): J45.909 - Unspecified asthma, uncomplicated Status: Chronic Assessment and Plan: No acute issues. Continue albuterol inhaler. (5) Hyperlipidemia: Onset Date: Unknown Qualifiers: Hyperlipidemia type: unspecified Qualified Code(s): E78.5 - Hyperlipidemia, unspecified Code(s): E78.5 - Hyperlipidemia, unspecified Status: Chronic Assessment and Plan: Continue home statin therapy. (6) GERD (gastroesophageal reflux disease): Qualifiers: Esophagitis presence: without esophagitis Qualified Code(s): K21.9 - Gastro-esophageal reflux disease without esophagitis Code(s): K21.9 - Gastro-esophageal reflux disease without esophagitis Status: Chronic Assessment and Plan: No acute issues. Continue pantoprazole. Additional Plan Thank you for allowing me to participate this patient's care. Will follow with you while she is here. Subjective Date/time seen: 08/03/19 10:25 Interval history: Ms. Verde is an 84yo F admitted due to a small pneumothorax after a fall. She reports feeling well today and offers no complaints other than her left-sided rib pain. She denies shortness of breath and is tolerating oral intake without nausea or vomiting. Review of Systems Review of Systems: Narrative: Twelve systems were reviewed with pertinent positives and negatives as per HPI. Exam Narrative: Exam Narrative: General: Elderly female resting supine in bed in no acute distress. HEENT: Normocephalic, EOMI, oral mucosa moist. Cardiovascular: Rate and rhythm regular. Respiratory: Lungs clear to auscultation all lind. Diminished breath sounds on the left. Respirations are even and nonlabored. Tolerating room air. Abdomen: Soft, non-tender, non-distended, bowel sounds present. Extremities: Peripheral pulses intact. No edema. Neuro: No focal neurological deficits. Speech is clear. Alert and oriented x 4. Objective Data Vital Signs Vital Signs: Last Vital Signs Temp 98.3 F 08/03/19 13:15 Pulse 56 L 08/03/19 13:15 Resp 18 08/03/19 13:15 BP 102/51 L 08/03/19 13:15 Puls
--- NOTE | 2019-08-03 15:52 | PM.DS ---
DS: Diagnosis Admitting Diagnosis Admitting Diagnosis: Multiple fractures of ribs, left side, initial encounter for closed fracture Discharge Diagnosis (1) Traumatic fracture of ribs of left side with pneumothorax: Onset Date: ~08/01/19 Code(s): S22.42XA - Multiple fractures of ribs, left side, initial encounter for closed fracture; S27.0XXA - Traumatic pneumothorax, initial encounter Status: Acute (2) Hyperlipidemia: Onset Date: Unknown Qualifiers: Hyperlipidemia type: unspecified Qualified Code(s): E78.5 - Hyperlipidemia, unspecified Code(s): E78.5 - Hyperlipidemia, unspecified Status: Chronic (3) Asthma: Qualifiers: Asthma severity: mild Asthma persistence: intermittent Asthma complication type: uncomplicated Qualified Code(s): J45.20 - Mild intermittent asthma, uncomplicated Code(s): J45.909 - Unspecified asthma, uncomplicated Status: Chronic (4) GERD (gastroesophageal reflux disease): Qualifiers: Esophagitis presence: without esophagitis Qualified Code(s): K21.9 - Gastro-esophageal reflux disease without esophagitis Code(s): K21.9 - Gastro-esophageal reflux disease without esophagitis Status: Chronic DS: Summary Hospital Course Reason for hospitalization: Mitra Verde is a 84 year old female who presented to the ED after a conscious fall at home. She called her daughter and was able to ambulate into the ED via walker. She also complained of associated shortness of breath but reports she has this at baseline. The patient also has longstanding osteoarthritis and degenerative disc disease which she is treated withy hydrocodone. Per her daughter, she had experienced multiple falls at home previously. In the ED, she was found to have multiple left rib fractures and a small left pneumothorax. She was admitted to our service and the Hospitalist service was consulted for medical care during hospitalization. Hospital Course: The patient was admitted. Left elbow and shoulder x-rays showed no acute fracture or joint displacement. Neck x-ray showed no acute findings. Head CT showed age related findings but no acute intracranial abnormalities. Chest x-ray in the ED showed the multiple left rib fractures and small left pneumothorax. The small pneumothorax was treated with conservative measures with deep breathing/incentive spirometry and coughing. No chest tube was needed during her hospitalization and she remained stable while on observation. The patient is weak and we did have PT/OT evaluate her while inpatient. She qualified for transfer to rehab on discharge. The patient was also treated with analgesics for her pain due to the rib fractures. The patient was monitored with serial chest x-rays and exams. Chest x-rays continued to show interval improvement of the left pneumothorax. She did have a witnessed syncopal episode while sitting in the chair yesterday, which was evaluated by the Hospitalist and felt to be a vasovagal response. Carotid dopplers were checked and showed bilateral < 50 % carotid stenosis. Vital signs remained stable. Discussed the discharge today with the Hospitalist who is comfortable with discharge to a rehab facility and had no other concerns with the syncopal episode. I discussed the patient's case with Dr. Gongora today. The managed care liaison was able to get the patient accepted to [facility] for discharge today. Dr. Gongora is okay with the discharge and I discussed discharge care instructions with the patient at the bedside today. Will order a chest x-ray to be performed in 1 week. She will need to continue use of the incentive spirometer and continue to increase activity and work with PT/OT in the rehab facility. She will also need more long-term pain management due to the rib fractures, which will be deferred to the provider at [facility] when she is eventually discharged home. Patient is stable on room air and with no respiratory distress. No other
== END 2019-08-03 16:20 | DRG 200 ==
LOC: ANHED 08:52 → ANH2MED 10:41
PROVIDERS: Physician Assistant; Admitting Provider Surgery; Emergency Provider General Practice; PCP Internal Medicine; Visit Provider Nurse Practitioner Family
DX: S27.0XXA Traumatic pneumothorax, initial encounter (principal); S22.42XA Multiple fractures of ribs, left side, initial encounter for closed fracture; R55 Syncope and collapse; E78.5 Hyperlipidemia, unspecified; J45.909 Unspecified asthma, uncomplicated; K21.9 Gastro-esophageal reflux disease without esophagitis; M19.90 Unspecified osteoarthritis, unspecified site; M41.9 Scoliosis, unspecified; D72.829 Elevated white blood cell count, unspecified; M81.0 Age-related osteoporosis without current pathological fracture; I10 Essential (primary) hypertension; W18.09XA Striking against other object with subsequent fall, initial encounter; Z96.653 Presence of artificial knee joint, bilateral; Z85.42 Personal history of malignant neoplasm of other parts of uterus; Z90.710 Acquired absence of both cervix and uterus; Z87.891 Personal history of nicotine dependence
CPT/HCPCS: 36415; 70450; 71045; 71046; 72125; 73030; 73080; 80048; 80053; 81001; 83735; 85025; 85610; 85730; 87077; 87086; 87088; 93005; 93880; 94640; 96361; 96372; 96374; 96375; 96376; 97110; 97116; 97161; 99285; A9270; C1729; G0378; J1650; J2270; J2405; J7040

== ENCOUNTER 2019-08-03 16:21 | IRF | payer MEDICARE, SELFPAY ==
--- NOTE | ~2019-08-03 | XR_ITS ---
EXAMINATION: XR hip RT min 2V DATE: 08/04/2019 12:29 INDICATION: Right hip pain. Fall. TECHNIQUE: 2 views of right hip were obtained. COMPARISON: None. FINDINGS: Bone alignment is normal. No fracture. There is moderate right hip osteoarthritis. IMPRESSION: 1. Moderate right hip osteoarthritis. Reviewed, dictated and finalized at location A.
--- NOTE | ~2019-08-03 | XR_ITS ---
EXAMINATION: XR chest 2V DATE: 08/10/2019 09:57 INDICATION: Left pneumothorax. TECHNIQUE: Frontal and lateral views of the chest were obtained. COMPARISON: Chest single view 08/03/2019, chest 2 views 08/02/2019, left radiographs 08/01/2019 FINDINGS: Again seen is chronic elevation of left hemidiaphragm. There is mild atelectasis in left mi d and lower lung zones. A calcified right lung nodule is consistent with old granulomatous disease. T here is blunting of the posterior costophrenic angles. No pneumothorax. There are multiple old healed right rib fractures. There are multiple acute left rib fractures. There is an acute displaced fractu re of left scapular body. IMPRESSION: 1. No pneumothorax. 2. Mild atelectasis in left mid and lower lung zones. 3. Blunting of the posterior costophrenic angles, which may be scarring or tiny pleural effusions. 4. Redemonstration of multiple acute left rib fractures. 5. Acute displaced fracture of left scapular body. Reviewed, dictated and finalized at location A.
--- NOTE | 2019-08-03 16:31 | ADMGEN ---
This patient, Mitra Verde, was admitted to [facility] Room 221-02. Patient/family oriented to hospital policies and general routines including ID bracelet, bed and alarms, visiting hours, pain management, procedures, bathroom and other care routines, personal items, smoking policy, room service/diet, and visiting hours. Valuables list has been completed. Information on how to activate the Rapid Response Team has been discussed. Patient/Family are encouraged to report perceived risks to care and to ask questions if they do not understand what they are told or what they should do.
[2019-08-03 16:40] VITALS: BP 111/43; PULSE 73; RESP 18; TEMP 37.1; O2SAT 94; BMI 28.4
[2019-08-03] MEDS: DOCUSATE SODIUM 100 MG CAPSULE PO (17:41)
[2019-08-03] MEDS: CALCIUM CARBONATE (TUMS) 500 MG (200 MG ELEMENTAL) PO ×2 (17:41→20:08)
[2019-08-03] MEDS: IBUPROFEN 600 MG TABLET PO (17:41)
[2019-08-03] MEDS: GABAPENTIN 400 MG CAPSULE PO (17:43)
[2019-08-03] MEDS: PANTOPRAZOLE 40 MG TABLET PO (20:09)
[2019-08-03 21:31] VITALS: BP 130/48; PULSE 76; RESP 20; TEMP 36.8; O2SAT 94
[2019-08-04] MEDS: IBUPROFEN 600 MG TABLET PO ×4 (01:46→23:43)
[2019-08-04 04:43] LABS: Basophils Absolute Auto 0.1 K/mm3 (0.0-0.1); Basophils Percent Auto 0.8 % (0.2-1.2); Eosinophils Absolute Auto 0.2 K/mm3 (0-0.3); Eosinophils Percent Auto 3.4 % (0-4.4); Hematocrit 33.9 % (37.0-47.0); Hemoglobin 11.1 g/dL (12.0-15.0); Immature Granulocyte Absolute 0.06 K/mm3 (0.00-0.031); Immature Granulocyte Percent A 0.8 % (0-0.5); Lymphocytes Absolute Auto 1.71 K/mm3 (0.9-3.2); Lymphocytes Percent Auto 23.9 % (18.3-44.2); Mean Corpuscular HGB Conc 32.7 g/dl (32-36); Mean Corpuscular Hemoglobin 30.2 pg (26-34); Mean Corpuscular Volume 92.4 fl (80-100); Mean Platelet Volume 10.5 fl (7.4-10.4); Monocytes Absolute Auto 0.7 K/mm3 (0.1-0.6); Monocytes Percent Auto 9.5 % (2.6-8.5); Neutrophils Absolute Auto 4.4 K/mm3 (1.3-6.7); Neutrophils Percent Auto 61.6 % (45.5-73.1); Platelet Count Result 162 k/mm3 (150-375); Red Blood Count 3.67 M/mm3 (4.2-5.4); Red Cell Distribution Width 13.2 % (11.5-14.5); White Blood Count 7.2 K/mm3 (4.5-10.0)
[2019-08-04 04:55] LABS: Blood Urea Nitrogen 21 mg/dL (7-17); Calcium 8.6 mg/dL (8.4-10.2); Carbon Dioxide 31 mmol/L (22-30); Chloride 104 mmol/L (98-107); Estimated CRCL calculation 30 ml/min; Estimated Glomerular Filt Rate 47; Glucose 104 mg/dL (65-105); Potassium 4.2 mmol/L (3.4-5.0); Sodium 138 mmol/L (137-145)
[2019-08-04 06:00] VITALS: BP 128/53; PULSE 86; RESP 16; TEMP 36.3; O2SAT 98
--- NOTE | 2019-08-04 06:10 | PCRCNOTE ---
Window of time for administration has passed. See next scheduled administration.
--- NOTE | 2019-08-04 10:00 | WPDREHABHP ---
H&P: HPI History of Present Illness Chief complaint: traumatic left rib fx with pneumothorax Narrative: Mitra Verde is a 84 year old female HISTORY OF PRESENT ILLNESS: The patient's primary rehab impairment category is pulmonary The etiologic diagnosis is traumatic fracture of the left 4-7th ribs, left pneumothorax I saw this patient [id number] on August 04, 2019 at 10:00 a.m. The patient is a 84-year-old right-handed woman with a prior medical history of hypertension, osteoarthritis and scoliosis who initially presented to [facility] Emergency Room on August 01, 2019 after a ground level fall at home. The patient reported that she was backing up with her walker when she backed into her bookcase and fell. She stated that she hit her left shoulder and complained of significant pain. She noted a history of a broken neck in 2017 but denies any previous injury to her left shoulder. Chest x-ray showed a left pneumothorax acute fractures of the left 4th through 7th ribs, worsened elevation of the left hemidiaphragm and mild atelectasis at the left lung base. A shoulder /elbow x-rays were negative for any acute fracture head CT demonstrated no acute intracranial abnormality. Cervical spine CT showed severe cervical spondylosis and the left apical pneumothorax. Surgery was consulted and no surgical intervention is required. Due to her acute hospital stay the patient had an acute syncopal episode while sitting in the bedside chair she became unresponsive and clammy. She was started on 2 liters of oxygen and became more responsive and the physician suspects visible vasovagal syncope versus arrhythmias. She has been placed back on her antihypertensive medication that she had discontinued herself after weight loss aggressively about a year ago medical complications during the hospital stay have included acute pain a syncopal episode shortness of breath leukocytosis and impaired mobility. The patient presents alert and oriented x3 and demonstrates decreased strength and endurance impaired balance and gait instability the patient will be discharged to us on Lovenox for DVT prophylaxis. The patient has not traveled outside the [place] or had contact with someone who is ill that has traveled outside the [place] in the past 21 days. The patient has not had travel to an area of the [place] that is experienced on no in a transmission of the Coronavirus and has not had close personal contact with anyone that has. The patient does not have a fever cough chills sore throat. She is not expressing lower extensor during the symptoms. She tells me however that her right hip has been hurting since she has been moved to this floor and we will do the x-rays Therapy was initiated at the acute care facility and the patient transferred to us from [facility] on August 03, 2019 FALLS OR SURGERIES: The patient has had no major surgeries in the 100 days prior to admission. They had falls in the past year. They had falls with injury in the past year. PAST MEDICAL HISTORY: hypertension, multiple falls, leukocytosis, GERD, asthma, hyperlipidemia, arthritis, osteoporosis, C2 cervical fracture ( type 2 ordered quite fracture sustained in a fall in April of 2016 close) diastolic dysfunction with heart failure, osteoarthritis, right rib fractures 2018, scoliosis, urine cancer status post hysterectomy, ejection fraction 54% breast fibroids PAST SURGICAL HISTORY: bilateral knee replacement, hysterectomy SOCIAL HISTORY: patient lives in and was will in a 1 story with the finished basement. She has 3 to 4 steps with handrails. Longer is on the 1st floor. Has aircraft mechanic every 2 weeks for heavy a cleaning. Son checks on her several times a day. Her son Medardo is her surrogate decision maker. She has a remote smoking history and quit in no alcohol or drug abuse FAMILY HISTORY: sibling has coronary artery disease and hypertension. Mother has hypertens
[2019-08-04] MEDS: DOCUSATE SODIUM 100 MG CAPSULE PO ×2 (10:06→17:23)
[2019-08-04] MEDS: FLUTICASONE PROPIONATE 0.05% NA SPR 16 GM BTL (*BKC) 1 SPRAY NASAL (10:06)
[2019-08-04] MEDS: CALCIUM CARBONATE (TUMS) 500 MG (200 MG ELEMENTAL) PO ×4 (10:06→20:26)
[2019-08-04] MEDS: PANTOPRAZOLE 40 MG TABLET PO ×2 (10:07→20:26)
[2019-08-04] MEDS: CHOLECALCIFEROL 1,000 UNIT TABLET 1000 UNITS PO (10:07)
[2019-08-04] MEDS: MONTELUKAST SODIUM 10 MG TABLET PO (10:07)
[2019-08-04] MEDS: MULTIVITS W-FE,MIN CHEWABLE TABLET 1 TABLET PO (10:07)
[2019-08-04] MEDS: GABAPENTIN 400 MG CAPSULE PO ×2 (10:08→17:23)
[2019-08-04] MEDS: polyethylene glycoL 3350 17 GM POWD.PACK PO (10:08)
[2019-08-04] MEDS: LOVASTATIN 20 MG TABLET 40 MG PO (10:08)
[2019-08-04] MEDS: VITAMIN E 400 UNIT CAPSULE PO (10:08)
[2019-08-04] MEDS: ASCORBIC ACID 500 MG TABLET PO (10:09)
[2019-08-04 10:54] VITALS: BMI 28.4
[2019-08-04] MEDS: ENOXAPARIN 40 MG/0.4 ML SYRINGE SUB-Q (13:44)
[2019-08-04 14:00] VITALS: BP 99/79; PULSE 86; RESP 18; TEMP 37; O2SAT 97
--- NOTE | 2019-08-04 15:33 | RPD ---
INDIVIDUALIZED PLAN OF CARE FOR Mitra Verde Brief Synthesis of Pre-Admission Screen, Post-Admission Evaluation and Therapy Evaluations: The patient presents to rehab with traumatic fracture of left 4-7th ribs and a left pneumothorax. Comorbidities include Traumatic fracture of left 4-7th ribs, left pneumothorax, syncopal episode, essential hypertension, multiple falls, leukocytosis, GERD, asthma, hyperlipidemia, arthritis, osteoporosis, acute pain, gait instability, generalized weakness, malaise and fatigue, osteoarthritis, urinary frequency. The patient requires physician services for medical oversight and coordination of care. The patient needs physician monitoring and treatment of adverse reactions to new medications, monitoring for infection, hypertension, leukocytosis, and pain control. The patient requires nursing services for anticoagulation therapy, medication management and education, pressure relief and skin care management, monitoring of labs, bowel and bladder training, and fall/safety precautions. Dietary will work with her on medical nutrition therapy needs. Deficits include:ADLs, Balance, Endurance, Mobility, Pain Management, ROM, Safety, Strength, Transfers Supervisor Keymodule Assembly/Case Management for: Discharge Planning and Patient/Family Counseling Physical Therapy: 5 days per week for 90 minutes. Treatments may include: Therapeutic Exercise, Gait Training, Neuromuscular Re-education, Transfer Training, Community Reintegration, Bed Mobility, Patient/Family Education, Wheelchair Mobility Group Therapy/Concurrent Therapy Rationales: -Improve attention span during functional activities in a distracted environment. -Enhance problem solving and/or adequate judgment skills during functional activities in a distracted environment. -Promote increased safety awareness in a distracted environment to reduce fall risk with functional tasks, transfers, and ambulation to allow a more safe, self-sufficient return to the home environment. -Improve dynamic balance skills to promote safety and independence with functional activities in a distracted environment for maximum gain. Occupational Therapy: 5 days per week for 90 minutes. Treatments may include: Therapeutic Exercise, Therapeutic Activity, Cognitive Training, Self-Care Transfer Training, Community Reintegration, Home Management, Patient/Family Education, Wheelchair Mobility Training, Energy Conservation Training Group Therapy/Concurrent Therapy Rationales: -Allow therapist to observe and teach generalization and carry-over of skills learned in individual therapy. -Enhance problem solving and sequencing skills during therapeutic activities in a distracted environment. -Promote increased safety awareness in a realistic setting to reduce fall risk with functional tasks due to visual and verbal distractions. -Increase functional level with ADLs, ADL transfers and use of adaptive equipment through therapeutic activities with others while promoting safety to allow a more safe, self-sufficient return home. Medical Prognosis: Good Anticipated Length of Stay: 12 days Rehab Goals: Eating Goal: 06-Independent Oral Hygiene Goal: 06-Independent Toileting Hygiene Goal: 06-Independent Shower/Bathe Self Goal: 06-Independent Upper Body Dressing Goal: 06-Independent Lower Body Dressing Goal: 06-Independent Putting On/Taking Off Footwear Goal: 06-Independent Rolling Left and Right Goal: 06-Independent Sit to Lying Goal: 06-Independent Lying to Sitting on Side of Bed Goal: 06-Independent Sit to Stand Goal: 06-Independent Chair/Ezp-bo-Zeomu Transfer Goal: 06-Independent Toilet Transfer Goal: 06-Independent Car Transfer Goal: 06-Independent Walk 10' Goal: 06-Independent Walk 50' with Two Turns Goal: 06-Independent Walk 150' Goal: 04-Supervision or Touching Assistance Walk 10' on Uneven Surface Goal: 04-Supervision or Touching Assistance 1 Step (Curb) Goal: 06-Independent 4 Steps Goal: 06-Independent 12 [place]
[2019-08-04 21:21] VITALS: BP 124/62; PULSE 90; RESP 16; TEMP 36.7; O2SAT 96
[2019-08-05] MEDS: IBUPROFEN 600 MG TABLET PO ×3 (05:37→17:25)
[2019-08-05 06:00] VITALS: BP 154/75; PULSE 78; RESP 16; TEMP 36.5; O2SAT 97
[2019-08-05] MEDS: DOCUSATE SODIUM 100 MG CAPSULE PO ×2 (09:33→17:23)
[2019-08-05] MEDS: CHOLECALCIFEROL 1,000 UNIT TABLET 1000 UNITS PO (09:33)
[2019-08-05] MEDS: CALCIUM CARBONATE (TUMS) 500 MG (200 MG ELEMENTAL) PO ×4 (09:33→20:33)
[2019-08-05] MEDS: FLUTICASONE PROPIONATE 0.05% NA SPR 16 GM BTL (*BKC) 1 SPRAY NASAL (09:33)
[2019-08-05] MEDS: ASCORBIC ACID 500 MG TABLET PO (09:33)
[2019-08-05] MEDS: GABAPENTIN 400 MG CAPSULE PO ×2 (09:34→17:24)
[2019-08-05] MEDS: PANTOPRAZOLE 40 MG TABLET PO ×2 (09:34→20:33)
[2019-08-05] MEDS: LOVASTATIN 20 MG TABLET 40 MG PO (09:34)
[2019-08-05] MEDS: MONTELUKAST SODIUM 10 MG TABLET PO (09:34)
[2019-08-05] MEDS: MULTIVITS W-FE,MIN CHEWABLE TABLET 1 TABLET PO (09:34)
[2019-08-05] MEDS: polyethylene glycoL 3350 17 GM POWD.PACK PO (09:35)
[2019-08-05] MEDS: VITAMIN E 400 UNIT CAPSULE PO (09:35)
--- NOTE | 2019-08-05 10:54 | WPDNEURORHBP ---
Subjective Date/time seen: 08/05/19 10:54 Review of Systems Review of Systems: All systems reviewed & are unremarkable except as noted in HPI and below Functional Status Ambulation Ability Ability to Ambulate 10 Feet: Minimum Assistance X 1 Ambulation Assistive Devices: Walker, Wheeled Exam Const: General: cooperative, alert, awake and in distress Nutritional Appearance: average body habitus Orientation/consciousness: oriented to person, oriented to place and oriented to time Eyes: General: appearance normal, both eyes and all related structures Neck: Neck: no lymphadenopathy and other (decreased ROM) Resp: Effort & Inspection: normal respiratory effort and able to speak in complete sentences Auscultation: clear to auscultation bilaterally Cardio: Rate: regular rate Rhythm: regular rhythm GI: Auscultation: normal bowel sounds Skin: General skin exam: no rashes or lesions noted Neuro: General: patient oriented x3 and moves all extremities Cranial nerves: Yes CN's II-XII intact bilaterally, Yes Equal, round and reactive pupils present, Yes Nystagmus not present, Yes Normal facial strength present, Yes Midline tongue present, Yes Symmetric palate elevation present and Yes Ability to bilaterally rotate head present Cognition (Neuro): normal cognition Speech: normal speech Gait exam (Neuro): Unable to assess gait Motor exam (neuro): Abnormal motor strength present (4.5/5 all over) Deep tendon reflexes (DTR's): Right triceps reflex intensity grade: 1+, Left triceps reflex intensity grade: 1+, Rt Biceps (C5, C6): 1+, Left biceps reflex intensity grade: 1+, Right brachioradialis reflex intensity grade: 1+, Left brachioradialis reflex intensity grade: 1+, Right patellar reflex intensity grade: 1+, Left patellar reflex intensity grade: 1+, Right ankle reflex intensity grade: 0 and Left ankle reflex intensity grade: 0 Plantar Reflex Responses: downgoing: bilateral Psych: Appearance: grossly normal Objective Data Vital Signs Vital Signs: Vital Signs - 24 hr 08/04/19 14:00 08/04/19 21:21 08/05/19 06:00 Temperature 37.0 C 36.7 C 36.5 C Pulse Rate 86 90 78 Respiratory Rate 18 16 16 Blood Pressure 99/79 L 124/62 154/75 H Pulse Oximetry 97 96 97 Intake/Output Intake/Output: Intake & Output 04/08/20 08/03/19 08/04/19 08/05/19 23:59 23:59 23:59 23:59 Intake Total 240 620 240 Balance 240 620 240 Meds/Results Medications: Active Medications Generic Name Dose Route Start Last Admin Trade Name Freq PRN Reason Stop Dose Admin Acetaminophen/Aspirin/Caffeine 1 tablet 08/03/19 16:42 Pain Reliever Plus Tablet PO Q4-6H PRN Pain 1-3 Hydrocodone Bitart/Acetaminophen 1 tab 08/03/19 16:42 08/05/19 09:31 [place] 5-325 Mg PO 1 tab Q6H PRN Administration Moderate Pain (4-6) Al Hydrox/Mg Hydrox/Simethicone 30 ml 08/03/19 16:42 Mylanta PO QID PRN Dyspepsia Ascorbic Acid 500 mg 08/04/19 09:00 08/05/19 09:33 Vitamin C PO 500 mg DAILY PHILLY Administration Calcium Carbonate 200 mg 08/03/19 17:00 08/05/19 09:33 Tums PO 200 mg QID PHILLY Administration Docusate Sodium 100 mg 08/03/19 17:00 08/05/19 09:33 Colace Capsule PO 100 mg BID PHILLY Administration Enoxaparin Sodium 40 mg 08/05/19 09:00 08/04/19 13:44 Lovenox SUB-Q 40 mg DAILY PHILLY Administration Fluticasone Propionate 1 spray 08/04/19 09:00 08/05/19 09:33 Flonase 0.05% Nasal [place] NASAL 1 spray DAILY PHILLY Administration Gabapentin 400 mg 08/03/19 17:00 08/05/19 09:34 Neurontin PO 400 mg BID PHILLY Administration Ibuprofen 600 mg 08/03/19 18:00 08/05/19 05:37 Motrin PO 600 mg Q6HR PHILLY Administration Lovastatin 40 mg 08/04/19 09:00 08/05/19 09:34 Lovastatin PO 40 mg DAILY PHILLY Administration Montelukast Sodium 10 mg 08/04/19 09:00 08/05/19 09:34 Singulair PO 10 mg DAILY PHILLY Administration Multivitamins/Minerals 1 tablet
[2019-08-05 14:00] VITALS: BP 163/67; PULSE 78; RESP 18; TEMP 36.2; O2SAT 98
[2019-08-05 22:00] VITALS: BP 134/68; PULSE 77; RESP 18; TEMP 36.7; O2SAT 94
[2019-08-06] MEDS: IBUPROFEN 600 MG TABLET PO ×4 (00:34→17:57)
[2019-08-06 06:00] VITALS: BP 124/61; PULSE 81; RESP 16; TEMP 36.8; O2SAT 93
[2019-08-06] MEDS: ASCORBIC ACID 500 MG TABLET PO (09:15)
[2019-08-06] MEDS: DOCUSATE SODIUM 100 MG CAPSULE PO ×2 (09:16→17:57)
[2019-08-06] MEDS: CALCIUM CARBONATE (TUMS) 500 MG (200 MG ELEMENTAL) PO ×4 (09:16→20:22)
[2019-08-06] MEDS: FLUTICASONE PROPIONATE 0.05% NA SPR 16 GM BTL (*BKC) 1 SPRAY NASAL (09:16)
[2019-08-06] MEDS: CHOLECALCIFEROL 1,000 UNIT TABLET 1000 UNITS PO (09:16)
[2019-08-06] MEDS: ENOXAPARIN 40 MG/0.4 ML SYRINGE SUB-Q (09:16)
[2019-08-06] MEDS: LOVASTATIN 20 MG TABLET 40 MG PO (09:17)
[2019-08-06] MEDS: MONTELUKAST SODIUM 10 MG TABLET PO (09:17)
[2019-08-06] MEDS: GABAPENTIN 400 MG CAPSULE PO ×2 (09:17→17:57)
[2019-08-06] MEDS: PANTOPRAZOLE 40 MG TABLET PO ×2 (09:18→20:23)
[2019-08-06] MEDS: polyethylene glycoL 3350 17 GM POWD.PACK PO (09:18)
[2019-08-06] MEDS: VITAMIN E 400 UNIT CAPSULE PO (09:18)
[2019-08-06] MEDS: MULTIVITS W-FE,MIN CHEWABLE TABLET 1 TABLET PO (09:18)
[2019-08-06 14:00] VITALS: BP 135/67; PULSE 84; RESP 18; TEMP 36.6; O2SAT 97
[2019-08-06 20:10] VITALS: PULSE 78; RESP 18; O2SAT 94
[2019-08-06 22:00] VITALS: BP 132/72; PULSE 78; RESP 18; TEMP 36.8; O2SAT 94
[2019-08-07] MEDS: IBUPROFEN 600 MG TABLET PO ×4 (01:34→17:25)
[2019-08-07 06:00] VITALS: BP 160/64; PULSE 61; RESP 18; TEMP 36.6; O2SAT 98
[2019-08-07] MEDS: VITAMIN E 400 UNIT CAPSULE PO (09:05)
[2019-08-07] MEDS: CALCIUM CARBONATE (TUMS) 500 MG (200 MG ELEMENTAL) PO ×4 (09:05→19:57)
[2019-08-07] MEDS: CHOLECALCIFEROL 1,000 UNIT TABLET 1000 UNITS PO (09:05)
[2019-08-07] MEDS: FLUTICASONE PROPIONATE 0.05% NA SPR 16 GM BTL (*BKC) 1 SPRAY NASAL (09:05)
[2019-08-07] MEDS: MONTELUKAST SODIUM 10 MG TABLET PO (09:06)
[2019-08-07] MEDS: MULTIVITS W-FE,MIN CHEWABLE TABLET 1 TABLET PO (09:06)
[2019-08-07] MEDS: DOCUSATE SODIUM 100 MG CAPSULE PO ×2 (09:06→17:24)
[2019-08-07] MEDS: LOVASTATIN 20 MG TABLET 40 MG PO (09:07)
[2019-08-07] MEDS: ENOXAPARIN 40 MG/0.4 ML SYRINGE SUB-Q (09:07)
[2019-08-07] MEDS: GABAPENTIN 400 MG CAPSULE PO ×2 (09:07→17:24)
[2019-08-07] MEDS: PANTOPRAZOLE 40 MG TABLET PO ×2 (09:07→19:58)
[2019-08-07] MEDS: polyethylene glycoL 3350 17 GM POWD.PACK PO (09:08)
[2019-08-07] MEDS: ASCORBIC ACID 500 MG TABLET PO (09:08)
[2019-08-07] MEDS: ACETAMINOPHEN/ASPIRIN/CAFFEINE 250-250-65 MG TABLET 1 TABLET PO (10:23)
--- NOTE | 2019-08-07 11:16 | WPDNEURORHBP ---
Subjective Date/time seen: c/o mild pain breathing [id number]/20 11:16 Review of Systems Review of Systems: All systems reviewed & are unremarkable except as noted in HPI and below Functional Status Ambulation Ability Ability to Ambulate 10 Feet: Standby Assistance Ability to Ambulate 50 Feet With 2 Turns: Standby Assistance Ambulation Assistive Devices: Walker, Wheeled Exam Const: General: cooperative and no acute distress Nutritional Appearance: average body habitus Orientation/consciousness: oriented to person and oriented to place HENMT: Ears: hearing grossly normal bilaterally General nose exam: No nasal discharge present Face and sinus: normal facial exam Eyes: General: appearance normal, both eyes and all related structures Neck: Neck: other (decreased ROM) Resp: Effort & Inspection: normal respiratory effort and able to speak in complete sentences Auscultation: clear to auscultation bilaterally Cardio: Rate: regular rate Rhythm: regular rhythm Skin: General skin exam: no rashes or lesions noted Neuro: General: patient oriented x3, moves all extremities and no focal motor deficits Cranial nerves: Yes CN's II-XII intact bilaterally, Yes Equal, round and reactive pupils present, Yes Nystagmus not present, Yes Normal facial strength present, Yes facial symmetry, Yes Midline tongue present, Yes Ability to bilaterally rotate head present and Yes Ability to bilaterally elevate shoulders present Cognition (Neuro): normal cognition Speech: normal speech Motor exam (neuro): 5/5 motor strength present throughout (4/5), Normal motor muscle tone present throughout and Motor abnormalities not present Sensory Exam: Sensory deficit (Neuro) (distally) Psych: Appearance: grossly normal Objective Data Vital Signs Vital Signs: Vital Signs - 24 hr 08/06/19 14:00 08/06/19 20:10 08/06/19 22:00 Temperature 36.6 C 36.8 C Pulse Rate 84 78 78 Respiratory Rate 18 18 18 Blood Pressure 135/67 132/72 Pulse Oximetry 97 94 94 08/07/19 06:00 Temperature 36.6 C Pulse Rate 61 Respiratory Rate 18 Blood Pressure 160/64 H Pulse Oximetry 98 Intake/Output Intake/Output: Intake & Output 08/04/19 08/05/19 08/06/19 08/07/19 23:59 23:59 23:59 23:59 Intake Total 620 720 720 240 Balance 620 720 720 240 Meds/Results Medications: Active Medications Generic Name Dose Route Start Last Admin Trade Name Freq PRN Reason Stop Dose Admin Acetaminophen/Aspirin/Caffeine 1 tablet 08/03/19 16:42 08/07/19 10:23 Pain Reliever Plus Tablet PO 1 tablet Q4-6H PRN Administration Pain 1-3 Hydrocodone Bitart/Acetaminophen 1 tab 08/03/19 16:42 08/07/19 05:24 [place] 5-325 Mg PO 1 tab Q6H PRN Administration Moderate Pain (4-6) Al Hydrox/Mg Hydrox/Simethicone 30 ml 08/03/19 16:42 Mylanta PO QID PRN Dyspepsia Ascorbic Acid 500 mg 08/04/19 09:00 08/07/19 09:08 Vitamin C PO 500 mg DAILY PHILLY Administration Calcium Carbonate 200 mg 08/03/19 17:00 08/07/19 09:05 Tums PO 200 mg QID PHILLY Administration Docusate Sodium 100 mg 08/03/19 17:00 08/07/19 09:06 Colace Capsule PO 100 mg BID PHILLY Administration Enoxaparin Sodium 40 mg 08/05/19 09:00 08/07/19 09:07 Lovenox SUB-Q 40 mg DAILY PHILLY Administration Fluticasone Propionate 1 spray 08/04/19 09:00 08/07/19 09:05 Flonase 0.05% Nasal [place] NASAL 1 spray DAILY PHILLY Administration Gabapentin 400 mg 08/03/19 17:00 08/07/19 09:07 Neurontin PO 400 mg BID PHILLY Administration Ibuprofen 600 mg 08/03/19 18:00 08/07/19 06:43 Motrin PO 600 mg Q6HR PHILLY Administration Lovastatin 40 mg 08/04/19 09:00 08/07/19 09:07 Lovastatin PO 40 mg DAILY PHILLY Administration Montelukast Sodium 10 mg 08/04/19 09:00 08/07/19 09:06 Singulair PO 10 mg DAILY PHILLY Administration Multivitamins/Minerals 1 tablet 08/04/19 09:00 08/07/19 09:06 Flintstones Complete PO 1 table
[2019-08-07 14:00] VITALS: BP 150/60; PULSE 75; RESP 18; TEMP 36.8; O2SAT 95
[2019-08-07 21:11] VITALS: BP 139/63; PULSE 96; RESP 20; TEMP 37; O2SAT 95
[2019-08-08] MEDS: IBUPROFEN 600 MG TABLET PO ×5 (00:33→23:46)
[2019-08-08 06:00] VITALS: BP 135/77; PULSE 77; RESP 20; TEMP 36; O2SAT 97
--- NOTE | 2019-08-08 08:34 | PCPTNOTE ---
Mitra Verde was evaluated for a wheeled walker on 08/08/2019 by this physical therapist cosmetic sales assistant. The wheeled walker will resolve patient's mobility limitations and will be used for ADL's within the home. The patient can safely use the wheeled walker. ?The wheeled walker will resolve the patient?s mobility deficits, including decreased endurance and decreased strength.
[2019-08-08] MEDS: GABAPENTIN 400 MG CAPSULE PO ×2 (09:24→17:36)
[2019-08-08] MEDS: CALCIUM CARBONATE (TUMS) 500 MG (200 MG ELEMENTAL) PO ×4 (09:24→20:13)
[2019-08-08] MEDS: DOCUSATE SODIUM 100 MG CAPSULE PO ×2 (09:24→17:36)
[2019-08-08] MEDS: VITAMIN E 400 UNIT CAPSULE PO (09:25)
[2019-08-08] MEDS: MULTIVITS W-FE,MIN CHEWABLE TABLET 1 TABLET PO (09:25)
[2019-08-08] MEDS: polyethylene glycoL 3350 17 GM POWD.PACK PO (09:25)
[2019-08-08] MEDS: MONTELUKAST SODIUM 10 MG TABLET PO (09:25)
[2019-08-08] MEDS: LOVASTATIN 20 MG TABLET 40 MG PO (09:25)
[2019-08-08] MEDS: ENOXAPARIN 40 MG/0.4 ML SYRINGE SUB-Q (09:26)
[2019-08-08] MEDS: FLUTICASONE PROPIONATE 0.05% NA SPR 16 GM BTL (*BKC) 1 SPRAY NASAL (09:26)
[2019-08-08] MEDS: ASCORBIC ACID 500 MG TABLET PO (09:26)
[2019-08-08] MEDS: CHOLECALCIFEROL 1,000 UNIT TABLET 1000 UNITS PO (09:26)
[2019-08-08] MEDS: PANTOPRAZOLE 40 MG TABLET PO ×2 (09:26→20:14)
--- NOTE | 2019-08-08 12:32 | WPDNEURORHBP ---
Subjective Date/time seen: 08/08/19 12:32 Interval history: this pleasant 84-year-old woman is here because of traumatic rib fracture or pneumothorax she is doing remarkably well and looking forward to go home soon she denies any shortness of breath she denies any headache nausea vomiting fever chills sore throat and acute rating quite well and making progress Review of Systems Review of Systems: All systems reviewed & are unremarkable except as noted in HPI and below Functional Status Ambulation Ability Ability to Ambulate 10 Feet: Minimum Assistance X 1 Ability to Ambulate 50 Feet With 2 Turns: Minimum Assistance X 1 Ability to Ambulate 150 Feet: Contact Guard Ambulation Assistive Devices: Walker, Wheeled Exam Const: General: comfortable and no acute distress HENMT: General nose exam: Normal nares present Mouth: Yes moist mucous membranes Eyes: General: appearance normal, both eyes and all related structures Neck: Neck: supple and no JVD Resp: Effort & Inspection: normal respiratory effort Auscultation: clear to auscultation bilaterally Cardio: Rate: regular rate Rhythm: regular rhythm GI: GI Palp: Yes Soft to palpation Auscultation: normal bowel sounds Skin: General skin exam: normal color and no rashes or lesions noted Neuro: Other: patient remains awake and alert well oriented time please person generalized weakness all symptoms are improving and doing fairly well looking forward to go home soon overall continues to improve Extrem: General: normal to inspection Psych: Mental Status: mental status grossly normal Objective Data Vital Signs Vital Signs: Vital Signs - 24 hr 08/07/19 14:00 08/07/19 21:11 08/08/19 06:00 Temperature 36.8 C 37.0 C 36.0 C L Pulse Rate 75 96 77 Respiratory Rate 18 20 20 Blood Pressure 150/60 H 139/63 135/77 Pulse Oximetry 95 95 97 Intake/Output Intake/Output: Intake & Output 08/05/19 08/06/19 08/07/19 08/08/19 23:59 23:59 23:59 23:59 Intake Total 720 720 840 240 Balance 720 720 840 240 Meds/Results Medications: Active Medications Generic Name Dose Route Start Last Admin Trade Name Freq PRN Reason Stop Dose Admin Acetaminophen/Aspirin/Caffeine 1 tablet 08/03/19 16:42 08/07/19 10:23 Pain Reliever Plus Tablet PO 1 tablet Q4-6H PRN Administration Pain 1-3 Hydrocodone Bitart/Acetaminophen 1 tab 08/03/19 16:42 08/08/19 11:16 [place] 5-325 Mg PO 1 tab Q6H PRN Administration Moderate Pain (4-6) Al Hydrox/Mg Hydrox/Simethicone 30 ml 08/03/19 16:42 Mylanta PO QID PRN Dyspepsia Ascorbic Acid 500 mg 08/04/19 09:00 08/08/19 09:26 Vitamin C PO 500 mg DAILY PHILLY Administration Calcium Carbonate 200 mg 08/03/19 17:00 08/08/19 12:31 Tums PO 200 mg QID PHILLY Administration Docusate Sodium 100 mg 08/03/19 17:00 08/08/19 09:24 Colace Capsule PO 100 mg BID PHILLY Administration Enoxaparin Sodium 40 mg 08/05/19 09:00 08/08/19 09:26 Lovenox SUB-Q 40 mg DAILY PHILLY Administration Fluticasone Propionate 1 spray 08/04/19 09:00 08/08/19 09:26 Flonase 0.05% Nasal [place] NASAL 1 spray DAILY PHILLY Administration Gabapentin 400 mg 08/03/19 17:00 08/08/19 09:24 Neurontin PO 400 mg BID PHILLY Administration Ibuprofen 600 mg 08/03/19 18:00 08/08/19 12:31 Motrin PO 600 mg Q6HR PHILLY Administration Lovastatin 40 mg 08/04/19 09:00 08/08/19 09:25 Lovastatin PO 40 mg DAILY PHILLY Administration Montelukast Sodium 10 mg 08/04/19 09:00 08/08/19 09:25 Singulair PO 10 mg DAILY PHILLY Administration Multivitamins/Minerals 1 tablet 08/04/19 09:00 08/08/19 09:25 [place] Complete PO 1 tablet DAILY PHILLY Administration Pantoprazole Sodium 40 mg 08/03/19 21:00 08/08/19 09:26 Protonix PO 40 mg Q12HR PHILLY Administration Polyethylene Glycol 17 gm 08/04/19 09:00 08/08/19 09:25 Miralax PO 17 gm QAM PHILLY Administration Tiotropium
[2019-08-08 12:44] VITALS: PULSE 77; RESP 20
[2019-08-08 14:00] VITALS: BP 147/70; PULSE 77; RESP 18; TEMP 36.7; O2SAT 97
[2019-08-08] MEDS: ACETAMINOPHEN/ASPIRIN/CAFFEINE 250-250-65 MG TABLET 1 TABLET PO (21:41)
[2019-08-08 22:00] VITALS: BP 157/74; PULSE 62; RESP 18; TEMP 36.8; O2SAT 98
[2019-08-09] MEDS: IBUPROFEN 600 MG TABLET PO ×3 (05:37→22:28)
[2019-08-09 06:00] VITALS: BP 152/74; PULSE 66; RESP 19; TEMP 36.8; O2SAT 99
[2019-08-09] MEDS: CHOLECALCIFEROL 1,000 UNIT TABLET 1000 UNITS PO (08:47)
[2019-08-09] MEDS: CALCIUM CARBONATE (TUMS) 500 MG (200 MG ELEMENTAL) PO ×4 (08:47→20:24)
[2019-08-09] MEDS: GABAPENTIN 400 MG CAPSULE PO ×2 (08:47→16:14)
[2019-08-09] MEDS: MULTIVITS W-FE,MIN CHEWABLE TABLET 1 TABLET PO (08:47)
[2019-08-09] MEDS: PANTOPRAZOLE 40 MG TABLET PO ×2 (08:48→20:24)
[2019-08-09] MEDS: DOCUSATE SODIUM 100 MG CAPSULE PO ×2 (08:49→16:14)
[2019-08-09] MEDS: VITAMIN E 400 UNIT CAPSULE PO (08:49)
[2019-08-09] MEDS: ASCORBIC ACID 500 MG TABLET PO (08:49)
[2019-08-09] MEDS: ENOXAPARIN 40 MG/0.4 ML SYRINGE SUB-Q (08:50)
[2019-08-09] MEDS: MONTELUKAST SODIUM 10 MG TABLET PO (08:50)
[2019-08-09] MEDS: LOVASTATIN 20 MG TABLET 40 MG PO (08:50)
[2019-08-09] MEDS: polyethylene glycoL 3350 17 GM POWD.PACK PO (08:51)
[2019-08-09] MEDS: FLUTICASONE PROPIONATE 0.05% NA SPR 16 GM BTL (*BKC) 1 SPRAY NASAL (12:38)
[2019-08-09 14:00] VITALS: BP 136/67; PULSE 79; RESP 18; TEMP 36.8; O2SAT 94
--- NOTE | 2019-08-09 14:39 | WPDNEURORHBP ---
Subjective Date/time seen: 08/09/19 14:39 Interval history: this 84-year-old woman is here after having had rib fracture or pneumothorax she is stable the pain fluctuates depending upon the time of the therapy and a of the day overall she is improving and looking forward to be going home she denies any headache shortness of breath nausea and vomiting if any pain she has is because of the hip fracture which is not really cardiac or pulmonary otherwise Review of Systems Review of Systems: All systems reviewed & are unremarkable except as noted in HPI and below Functional Status Ambulation Ability Ability to Ambulate 10 Feet: Standby Assistance Ability to Ambulate 50 Feet With 2 Turns: Standby Assistance Ability to Ambulate 150 Feet: Standby Assistance Ambulation Assistive Devices: Walker, Wheeled Exam Const: General: no acute distress and uncomfortable HENMT: General nose exam: Normal nares present Mouth: Yes moist mucous membranes Eyes: General: appearance normal, both eyes and all related structures Neck: Neck: supple and no JVD Resp: Effort & Inspection: normal respiratory effort Auscultation: clear to auscultation bilaterally Cardio: Rate: regular rate Rhythm: regular rhythm GI: GI Palp: Yes Soft to palpation Auscultation: normal bowel sounds Skin: General skin exam: normal color and no rashes or lesions noted Neuro: Other: remains awake and alert and well oriented time place and person with normal speech and language function normal cranial examination decrease in strength upper lower extremities related to multiple trauma rather than the weakness related to any neurological event Extrem: General: normal to inspection Psych: Mental Status: mental status grossly normal Objective Data Vital Signs Vital Signs: Vital Signs - 24 hr 08/08/19 22:00 08/09/19 06:00 Temperature 36.8 C 36.8 C Pulse Rate 62 66 Respiratory Rate 18 19 Blood Pressure 157/74 H 152/74 H Pulse Oximetry 98 99 Intake/Output Intake/Output: Intake & Output 08/06/19 08/07/19 08/08/19 08/09/19 23:59 23:59 23:59 23:59 Intake Total 720 840 700 480 Balance 720 840 700 480 Meds/Results Medications: Active Medications Generic Name Dose Route Start Last Admin Trade Name Freq PRN Reason Stop Dose Admin Acetaminophen/Aspirin/Caffeine 1 tablet 08/03/19 16:42 08/08/19 21:41 Pain Reliever Plus Tablet PO 1 tablet Q4-6H PRN Administration Pain 1-3 Hydrocodone Bitart/Acetaminophen 1 tab 08/03/19 16:42 08/09/19 08:45 [place] 5-325 Mg PO 1 tab Q6H PRN Administration Moderate Pain (4-6) Al Hydrox/Mg Hydrox/Simethicone 30 ml 08/03/19 16:42 Mylanta PO QID PRN Dyspepsia Ascorbic Acid 500 mg 08/04/19 09:00 08/09/19 08:49 Vitamin C PO 500 mg DAILY PHILLY Administration Calcium Carbonate 200 mg 08/03/19 17:00 08/09/19 12:36 Tums PO 200 mg QID PHILLY Administration Docusate Sodium 100 mg 08/03/19 17:00 08/09/19 08:49 Colace Capsule PO 100 mg BID PHILLY Administration Enoxaparin Sodium 40 mg 08/05/19 09:00 08/09/19 08:50 Lovenox SUB-Q 40 mg DAILY PHILLY Administration Fluticasone Propionate 1 spray 08/04/19 09:00 08/09/19 12:38 Flonase 0.05% Nasal [place] NASAL 1 spray DAILY PHILLY Administration Gabapentin 400 mg 08/03/19 17:00 08/09/19 08:47 Neurontin PO 400 mg BID PHILLY Administration Ibuprofen 600 mg 08/03/19 18:00 08/09/19 12:36 Motrin PO 600 mg Q6HR PHILLY Administration Lovastatin 40 mg 08/04/19 09:00 08/09/19 08:50 Lovastatin PO 40 mg DAILY PHILLY Administration Montelukast Sodium 10 mg 08/04/19 09:00 08/09/19 08:50 Singulair PO 10 mg DAILY PHILLY Administration Multivitamins/Minerals 1 tablet 08/04/19 09:00 08/09/19 08:47 [place] Complete PO 1 tablet DAILY PHILLY Administration Pantoprazole Sodium 40 mg 08/03/19 21:00 08/09/19 08:48 Protonix PO 40 mg Q12HR PHILLY Administration P
[2019-08-09] MEDS: ACETAMINOPHEN/ASPIRIN/CAFFEINE 250-250-65 MG TABLET 1 TABLET PO (20:24)
[2019-08-09 22:00] VITALS: BP 184/81; PULSE 85; RESP 18; TEMP 36.8; O2SAT 98
[2019-08-09 22:41] VITALS: BP 162/80
[2019-08-10] MEDS: IBUPROFEN 600 MG TABLET PO ×3 (05:40→18:03)
[2019-08-10 06:00] VITALS: BP 137/69; PULSE 76; RESP 18; TEMP 37.1; O2SAT 94
[2019-08-10] MEDS: CALCIUM CARBONATE (TUMS) 500 MG (200 MG ELEMENTAL) PO ×4 (09:35→19:57)
[2019-08-10] MEDS: FLUTICASONE PROPIONATE 0.05% NA SPR 16 GM BTL (*BKC) 1 SPRAY NASAL (09:35)
[2019-08-10] MEDS: ASCORBIC ACID 500 MG TABLET PO (09:37)
[2019-08-10] MEDS: DOCUSATE SODIUM 100 MG CAPSULE PO ×2 (09:38→18:03)
[2019-08-10] MEDS: CHOLECALCIFEROL 1,000 UNIT TABLET 1000 UNITS PO (09:38)
[2019-08-10] MEDS: GABAPENTIN 400 MG CAPSULE PO ×2 (09:38→18:03)
[2019-08-10] MEDS: ENOXAPARIN 40 MG/0.4 ML SYRINGE SUB-Q (09:38)
[2019-08-10] MEDS: LOVASTATIN 20 MG TABLET 40 MG PO (09:39)
[2019-08-10] MEDS: PANTOPRAZOLE 40 MG TABLET PO ×2 (09:39→19:57)
[2019-08-10] MEDS: MULTIVITS W-FE,MIN CHEWABLE TABLET 1 TABLET PO (09:39)
[2019-08-10] MEDS: MONTELUKAST SODIUM 10 MG TABLET PO (09:39)
[2019-08-10] MEDS: VITAMIN E 400 UNIT CAPSULE PO (09:39)
[2019-08-10] MEDS: polyethylene glycoL 3350 17 GM POWD.PACK PO (09:39)
--- NOTE | 2019-08-10 11:26 | WPDNEURORHBP ---
Subjective Date/time seen: 08/10/19 11:26 Interval history: this 84-year-old woman is here after having had a traumatic fracture of left for through 7th ribs along with left pneumothorax her pain is fluctuating with therapy overall status is stable the shortness of breath is better which is related to the fracture of the ribs and possibly from the pneumothorax which really did not need any invasive treatment on the acute medical floor she is progressing in the rehab fairly well denies any chest pain on beside the ribcage pain due to fractures no headache nausea vomiting abdominal pain or discomfort Review of Systems Review of Systems: All systems reviewed & are unremarkable except as noted in HPI and below Functional Status Ambulation Ability Ability to Ambulate 10 Feet: Standby Assistance Ability to Ambulate 50 Feet With 2 Turns: Standby Assistance Ability to Ambulate 150 Feet: Standby Assistance Ambulation Assistive Devices: Walker, Wheeled Exam Const: General: comfortable and no acute distress HENMT: General nose exam: Normal nares present Mouth: Yes moist mucous membranes Eyes: General: appearance normal, both eyes and all related structures Neck: Neck: supple and no JVD Resp: Effort & Inspection: normal respiratory effort Auscultation: clear to auscultation bilaterally Cardio: Rate: regular rate Rhythm: regular rhythm GI: GI Palp: Yes Soft to palpation Auscultation: normal bowel sounds Skin: General skin exam: normal color and no rashes or lesions noted Neuro: Other: the mental status examination is normal she remains awake alert with normal speech and language function however still needing assistance in the activities of daily living due to the traumatic rib fractures and pneumothorax Extrem: General: normal to inspection Psych: Mental Status: mental status grossly normal Objective Data Vital Signs Vital Signs: Vital Signs - 24 hr 08/09/19 14:00 08/09/19 22:00 08/09/19 22:41 Temperature 36.8 C 36.8 C Pulse Rate 79 85 Respiratory Rate 18 18 Blood Pressure 136/67 184/81 H 162/80 H Pulse Oximetry 94 98 08/10/19 06:00 Temperature 37.1 C Pulse Rate 76 Respiratory Rate 18 Blood Pressure 137/69 Pulse Oximetry 94 Intake/Output Intake/Output: Intake & Output 08/07/19 08/08/19 08/09/19 08/10/19 23:59 23:59 23:59 23:59 Intake Total 840 700 720 240 Balance 840 700 720 240 Meds/Results Medications: Active Medications Generic Name Dose Route Start Last Admin Trade Name Freq PRN Reason Stop Dose Admin Acetaminophen/Aspirin/Caffeine 1 tablet 08/03/19 16:42 08/09/19 20:24 Pain Reliever Plus Tablet PO 1 tablet Q4-6H PRN Administration Pain 1-3 Hydrocodone Bitart/Acetaminophen 1 tab 08/03/19 16:42 08/10/19 09:37 [place] 5-325 Mg PO 1 tab Q6H PRN Administration Moderate Pain (4-6) Al Hydrox/Mg Hydrox/Simethicone 30 ml 08/03/19 16:42 Mylanta PO QID PRN Dyspepsia Ascorbic Acid 500 mg 08/04/19 09:00 08/10/19 09:37 Vitamin C PO 500 mg DAILY ON LICENSE OF [facility] Administration Calcium Carbonate 200 mg 08/03/19 17:00 08/10/19 09:35 Tums PO 200 mg QID ON LICENSE OF [facility] Administration Docusate Sodium 100 mg 08/03/19 17:00 08/10/19 09:38 Colace Capsule PO 100 mg BID ON LICENSE OF [facility] Administration Enoxaparin Sodium 40 mg 08/05/19 09:00 08/10/19 09:38 Lovenox SUB-Q 40 mg DAILY [facility] Administration Fluticasone Propionate 1 spray 08/04/19 09:00 08/10/19 09:35 Flonase 0.05% Nasal [place] NASAL 1 spray DAILY [facility] Administration Gabapentin 400 mg 08/03/19 17:00 08/10/19 09:38 Neurontin PO 400 mg BID [facility] Administration Ibuprofen 600 mg 08/03/19 18:00 08/10/19 05:40 Motrin PO 600 mg Q6HR [facility] Administration Lovastatin 40 mg 08/04/19 09:00 08/10/19 09:39 Lovastatin PO 40 mg DAILY [facility] Administration Montelukast Sodium 10 mg 08/04/19 09:00 08/10/19 09:39 Singulair PO 10 mg DAILY [facility] Administrat
[2019-08-10 14:00] VITALS: BP 134/62; PULSE 83; RESP 19; TEMP 36.5; O2SAT 97
[2019-08-10 22:00] VITALS: BP 138/63; PULSE 67; RESP 20; TEMP 36.4; O2SAT 95
[2019-08-11 04:27] LABS: Basophils Absolute Auto 0.1 K/mm3 (0.0-0.1); Eosinophils Absolute Auto 0.5 K/mm3 (0-0.3); Eosinophils Percent Auto 6.3 % (0-4.4); Hematocrit 32.4 % (37.0-47.0); Hemoglobin 10.7 g/dL (12.0-15.0); Immature Granulocyte Absolute 0.09 K/mm3 (0.00-0.031); Immature Granulocyte Percent A 1.3 % (0-0.5); Lymphocytes Absolute Auto 1.72 K/mm3 (0.9-3.2); Lymphocytes Percent Auto 24.3 % (18.3-44.2); Mean Corpuscular Volume 90.8 fl (80-100); Mean Platelet Volume 9.9 fl (7.4-10.4); Monocytes Absolute Auto 0.6 K/mm3 (0.1-0.6); Monocytes Percent Auto 8.7 % (2.6-8.5); Neutrophils Absolute Auto 4.1 K/mm3 (1.3-6.7); Neutrophils Percent Auto 58.4 % (45.5-73.1); Platelet Count Result 227 k/mm3 (150-375); Red Blood Count 3.57 M/mm3 (4.2-5.4); Red Cell Distribution Width 13.4 % (11.5-14.5); White Blood Count 7.1 K/mm3 (4.5-10.0)
[2019-08-11 04:58] LABS: Blood Urea Nitrogen 15 mg/dL (7-17); Calcium 8.6 mg/dL (8.4-10.2); Carbon Dioxide 29 mmol/L (22-30); Chloride 104 mmol/L (98-107); Estimated CRCL calculation 40 ml/min; Estimated Glomerular Filt Rate > 60; Glucose 94 mg/dL (65-105); Potassium 3.5 mmol/L (3.4-5.0); Sodium 135 mmol/L (137-145)
[2019-08-11 06:00] VITALS: BP 147/53; PULSE 57; RESP 20; TEMP 36.4; O2SAT 94
[2019-08-11] MEDS: IBUPROFEN 600 MG TABLET PO ×3 (06:32→17:58)
[2019-08-11] MEDS: ENOXAPARIN 40 MG/0.4 ML SYRINGE SUB-Q (09:52)
[2019-08-11] MEDS: ASCORBIC ACID 500 MG TABLET PO (09:53)
[2019-08-11] MEDS: MULTIVITS W-FE,MIN CHEWABLE TABLET 1 TABLET PO (09:53)
[2019-08-11] MEDS: CALCIUM CARBONATE (TUMS) 500 MG (200 MG ELEMENTAL) PO ×4 (09:53→20:09)
[2019-08-11] MEDS: VITAMIN E 400 UNIT CAPSULE PO (09:53)
[2019-08-11] MEDS: DOCUSATE SODIUM 100 MG CAPSULE PO ×2 (09:54→17:56)
[2019-08-11] MEDS: CHOLECALCIFEROL 1,000 UNIT TABLET 1000 UNITS PO (09:54)
[2019-08-11] MEDS: PANTOPRAZOLE 40 MG TABLET PO ×2 (09:54→20:09)
[2019-08-11] MEDS: MONTELUKAST SODIUM 10 MG TABLET PO (09:54)
[2019-08-11] MEDS: polyethylene glycoL 3350 17 GM POWD.PACK PO (09:54)
[2019-08-11] MEDS: FLUTICASONE PROPIONATE 0.05% NA SPR 16 GM BTL (*BKC) 1 SPRAY NASAL (09:54)
[2019-08-11] MEDS: GABAPENTIN 400 MG CAPSULE PO ×2 (09:54→17:57)
[2019-08-11] MEDS: LOVASTATIN 20 MG TABLET 40 MG PO (09:54)
--- NOTE | 2019-08-11 12:05 | PCDIET ---
Nutrition Follow-Up Complete: No nutritional dx at at this time. New goal: Patient to consume 75% of meals or greater. Patient consumed an average of 67% of meals since 08/05/19. Reports appetite comes and goes. Feels she is eating fairly adequately and is not interested in nutritional supplement. Encouraged patient to order snacks between meals, as desired. Spoke with patient via phone due to COVID-19 precautions. Last recorded weight is 68.3 kg. Recommend obtaining new weight. Bowel Motility: +BM on 08/10/19. Labs Reviewed: Na (135) Meds Noted: Vitamin C, Tums, Colace, MVI/minerals, Protonix, Miralax, Vitamin D, Vitamin E Additional Notes: No documented skin breakdown. Will continue to monitor with new goal of intakes >75%. Nutrition Monitoring and Evaluation: Will monitor every 7 days.
--- NOTE | 2019-08-11 13:52 | WPDNEURORHBP ---
Subjective Date/time seen: 08/11/19 13:52 Interval history: patient's pain and is stable she does have evidence of a scapular fracture on the left side which probably was present at the time she fell and it was not visible on the x-rays performed earlier discussed with her and waiting for a consult from the orthopedic however the patient does not want any kind of invasive procedure surgery etc which I do not believe is indicated here is 1 make sure the orthopedic physician sees her and a give a somewhat advice about the further therapy and the management for the scapular fracture next She denies any headache nausea vomiting chest pain or shortness of breath fever chills sore throat Review of Systems Review of Systems: All systems reviewed & are unremarkable except as noted in HPI and below Functional Status Ambulation Ability Ability to Ambulate 10 Feet: Independent Ability to Ambulate 50 Feet With 2 Turns: Independent Ability to Ambulate 150 Feet: Independent Ambulation Assistive Devices: Walker, Rollator Transfers Ability Ability to Transfer In/Out of Chair: Standby Assistance Exam Const: General: comfortable and no acute distress HENMT: General nose exam: Normal nares present Mouth: Yes moist mucous membranes Eyes: General: appearance normal, both eyes and all related structures Neck: Neck: supple and no JVD Resp: Effort & Inspection: normal respiratory effort Auscultation: clear to auscultation bilaterally Cardio: Rate: regular rate Rhythm: regular rhythm GI: GI Palp: Yes Soft to palpation Auscultation: normal bowel sounds Skin: General skin exam: normal color and no rashes or lesions noted Neuro: Other: patient remains awake alert with normal speech and language functions limited range of motions because of the all a or rib fracture on the left side particularly Extrem: General: normal to inspection Other: tender around the left upper chest and also the left shoulder area and scapular area Psych: Mental Status: mental status grossly normal Objective Data Vital Signs Vital Signs: Vital Signs - 24 hr 08/10/19 14:00 08/10/19 22:00 08/11/19 06:00 Temperature 36.5 C 36.4 C L 36.4 C L Pulse Rate 83 67 57 L Respiratory Rate 19 20 20 Blood Pressure 134/62 138/63 147/53 H Pulse Oximetry 97 95 94 Intake/Output Intake/Output: Intake & Output 08/08/19 08/09/19 08/10/19 08/11/19 23:59 23:59 23:59 23:59 Intake Total 700 720 720 240 Balance 700 720 720 240 Meds/Results Medications: Active Medications Generic Name Dose Route Start Last Admin Trade Name Freq PRN Reason Stop Dose Admin Acetaminophen/Aspirin/Caffeine 1 tablet 08/03/19 16:42 08/09/19 20:24 Pain Reliever Plus Tablet PO 1 tablet Q4-6H PRN Administration Pain 1-3 Hydrocodone Bitart/Acetaminophen 1 tab 08/03/19 16:42 08/11/19 10:01 [place] 5-325 Mg PO 1 tab Q6H PRN Administration Moderate Pain (4-6) Al Hydrox/Mg Hydrox/Simethicone 30 ml 08/03/19 16:42 Mylanta PO QID PRN Dyspepsia Ascorbic Acid 500 mg 08/04/19 09:00 08/11/19 09:53 Vitamin C PO 500 mg DAILY [facility] Administration Calcium Carbonate 200 mg 08/03/19 17:00 08/11/19 13:32 Tums PO 200 mg QID [facility] Administration Docusate Sodium 100 mg 08/03/19 17:00 08/11/19 09:54 Colace Capsule PO 100 mg BID [facility] Administration Enoxaparin Sodium 40 mg 08/05/19 09:00 08/11/19 09:52 Lovenox SUB-Q 40 mg DAILY [facility] Administration Fluticasone Propionate 1 spray 08/04/19 09:00 08/11/19 09:54 Flonase 0.05% Nasal [place] NASAL 1 spray DAILY [facility] Administration Gabapentin 400 mg 08/03/19 17:00 08/11/19 09:54 Neurontin PO 400 mg BID [facility] Administration Ibuprofen 600 mg 08/03/19 18:00 08/11/19 13:32 Motrin PO 600 mg Q6HR [facility] Administration Lovastatin 40 mg 08/04/19 09:00 08/11/19 09:54 Lovastatin PO 40 mg DAILY [facility] Administration Montelukast Sodium 10 mg 08/04/19 0
[2019-08-11 14:00] VITALS: BP 133/61; PULSE 88; RESP 18; TEMP 36.6; O2SAT 95
[2019-08-11 22:00] VITALS: BP 152/82; PULSE 78; RESP 18; TEMP 36; O2SAT 94
[2019-08-12 06:00] VITALS: BP 152/71; PULSE 65; RESP 16; TEMP 36.3; O2SAT 96
[2019-08-12] MEDS: IBUPROFEN 600 MG TABLET PO ×4 (06:59→23:30)
[2019-08-12] MEDS: MULTIVITS W-FE,MIN CHEWABLE TABLET 1 TABLET PO (09:05)
[2019-08-12] MEDS: CALCIUM CARBONATE (TUMS) 500 MG (200 MG ELEMENTAL) PO ×4 (09:05→21:57)
[2019-08-12] MEDS: FLUTICASONE PROPIONATE 0.05% NA SPR 16 GM BTL (*BKC) 1 SPRAY NASAL (09:06)
[2019-08-12] MEDS: ENOXAPARIN 40 MG/0.4 ML SYRINGE SUB-Q (09:07)
[2019-08-12] MEDS: LOVASTATIN 20 MG TABLET 40 MG PO (09:07)
[2019-08-12] MEDS: polyethylene glycoL 3350 17 GM POWD.PACK PO (09:07)
[2019-08-12] MEDS: DOCUSATE SODIUM 100 MG CAPSULE PO ×2 (09:07→17:38)
[2019-08-12] MEDS: GABAPENTIN 400 MG CAPSULE PO ×2 (09:08→17:38)
[2019-08-12] MEDS: CHOLECALCIFEROL 1,000 UNIT TABLET 1000 UNITS PO (09:08)
[2019-08-12] MEDS: ASCORBIC ACID 500 MG TABLET PO (09:08)
[2019-08-12] MEDS: PANTOPRAZOLE 40 MG TABLET PO ×2 (09:08→21:57)
[2019-08-12] MEDS: VITAMIN E 400 UNIT CAPSULE PO (09:08)
[2019-08-12] MEDS: MONTELUKAST SODIUM 10 MG TABLET PO (09:09)
[2019-08-12] MEDS: ACETAMINOPHEN/ASPIRIN/CAFFEINE 250-250-65 MG TABLET 1 TABLET PO (09:10)
[2019-08-12 14:00] VITALS: BP 134/67; PULSE 77; RESP 20; TEMP 36.8; O2SAT 95
--- NOTE | 2019-08-12 14:38 | WPDNEURORHBP ---
Subjective Date/time seen: 08/12/19 14:38 Interval history: this 84-year-old woman is on the rehab after having had a traumatic pneumothorax related to the fractures of the ribs and also was found to have scapular fracture for which the orthopedic consult was obtained although the note is not available high was told by the attending nurse that there is no further surgical or otherwise treatment is needed except the conservative treatment that input is appreciated the patient denies any aggravation of the pain doing well in the therapy and walking fairly well denies any chest pain other than related to 30 fracture shortness of breath headache nausea vomiting fevers chills or sore throat Review of Systems Review of Systems: All systems reviewed & are unremarkable except as noted in HPI and below Functional Status Ambulation Ability Ability to Ambulate 10 Feet: Standby Assistance Ability to Ambulate 50 Feet With 2 Turns: Standby Assistance Ability to Ambulate 150 Feet: Standby Assistance Ambulation Assistive Devices: Walker, Rollator Transfers Ability Ability to Transfer In/Out of Chair: Standby Assistance Exam Const: General: comfortable and no acute distress HENMT: General nose exam: Normal nares present Mouth: Yes moist mucous membranes Eyes: General: appearance normal, both eyes and all related structures Neck: Neck: supple and no JVD Resp: Effort & Inspection: normal respiratory effort Auscultation: clear to auscultation bilaterally Cardio: Rate: regular rate Rhythm: regular rhythm GI: GI Palp: Yes Soft to palpation Auscultation: normal bowel sounds Skin: General skin exam: normal color and no rashes or lesions noted Neuro: Other: patient remained alert will oriented without any lateralizing focal motor deficit safe related to the shoulder and limitation of the left shoulder due to scapular fracture and the trauma to her ribs on the left side Extrem: General: normal to inspection Psych: Mental Status: mental status grossly normal Objective Data Vital Signs Vital Signs: Vital Signs - 24 hr 08/12/19 22:00 08/13/19 06:00 Temperature 36.7 C 36.5 C Pulse Rate 84 79 Respiratory Rate 18 19 Blood Pressure 178/61 H 153/93 H Pulse Oximetry 97 96 Intake/Output Intake/Output: Intake & Output 08/10/19 08/11/19 08/12/19 08/13/19 23:59 23:59 23:59 23:59 Intake Total 720 720 720 600 Balance 720 720 720 600 Meds/Results Medications: Active Medications Generic Name Dose Route Start Last Admin Trade Name Freq PRN Reason Stop Dose Admin Acetaminophen/Aspirin/Caffeine 1 tablet 08/03/19 16:42 08/13/19 08:30 Pain Reliever Plus Tablet PO 1 tablet Q4-6H PRN Administration Pain 1-3 Hydrocodone Bitart/Acetaminophen 1 tab 08/03/19 16:42 08/13/19 03:22 [place] 5-325 Mg PO 1 tab Q6H PRN Administration Moderate Pain (4-6) Al Hydrox/Mg Hydrox/Simethicone 30 ml 08/03/19 16:42 Mylanta PO QID PRN Dyspepsia Ascorbic Acid 500 mg 08/04/19 09:00 08/13/19 08:25 Vitamin C PO 500 mg DAILY [facility] Administration Calcium Carbonate 200 mg 08/03/19 17:00 08/13/19 13:00 Tums PO 200 mg QID [facility] Administration Docusate Sodium 100 mg 08/03/19 17:00 08/13/19 08:25 Colace Capsule PO 100 mg BID [facility] Administration Enoxaparin Sodium 40 mg 08/05/19 09:00 08/13/19 08:27 Lovenox SUB-Q 40 mg DAILY [facility] Administration Fluticasone Propionate 1 spray 08/04/19 09:00 08/13/19 08:27 Flonase 0.05% Nasal [place] NASAL 1 spray DAILY [facility] Administration Gabapentin 400 mg 08/03/19 17:00 08/13/19 08:28 Neurontin PO 400 mg BID [facility] Administration Ibuprofen 600 mg 08/03/19 18:00 08/13/19 13:00 Motrin PO 600 mg Q6HR [facility] Administration Lovastatin 40 mg 08/04/19 09:00 08/13/19 08:29 Lovastatin PO 40 mg DAILY [facility] Administration Montelukast Sodium 10 mg 08/04/19 09:00 08/13/19 08:29 Singulair PO 10 mg DAILY [facility]
[2019-08-12 22:00] VITALS: BP 178/61; PULSE 84; RESP 18; TEMP 36.7; O2SAT 97
[2019-08-13 06:00] VITALS: BP 153/93; PULSE 79; RESP 19; TEMP 36.5; O2SAT 96
[2019-08-13] MEDS: IBUPROFEN 600 MG TABLET PO ×3 (06:16→17:52)
[2019-08-13] MEDS: DOCUSATE SODIUM 100 MG CAPSULE PO ×2 (08:25→17:52)
[2019-08-13] MEDS: ASCORBIC ACID 500 MG TABLET PO (08:25)
[2019-08-13] MEDS: CALCIUM CARBONATE (TUMS) 500 MG (200 MG ELEMENTAL) PO ×4 (08:25→21:43)
[2019-08-13] MEDS: FLUTICASONE PROPIONATE 0.05% NA SPR 16 GM BTL (*BKC) 1 SPRAY NASAL (08:27)
[2019-08-13] MEDS: CHOLECALCIFEROL 1,000 UNIT TABLET 1000 UNITS PO (08:27)
[2019-08-13] MEDS: ENOXAPARIN 40 MG/0.4 ML SYRINGE SUB-Q (08:27)
[2019-08-13] MEDS: GABAPENTIN 400 MG CAPSULE PO ×2 (08:28→17:52)
[2019-08-13] MEDS: MULTIVITS W-FE,MIN CHEWABLE TABLET 1 TABLET PO (08:29)
[2019-08-13] MEDS: polyethylene glycoL 3350 17 GM POWD.PACK PO (08:29)
[2019-08-13] MEDS: MONTELUKAST SODIUM 10 MG TABLET PO (08:29)
[2019-08-13] MEDS: LOVASTATIN 20 MG TABLET 40 MG PO (08:29)
[2019-08-13] MEDS: PANTOPRAZOLE 40 MG TABLET PO ×2 (08:29→21:43)
[2019-08-13] MEDS: VITAMIN E 400 UNIT CAPSULE PO (08:30)
[2019-08-13] MEDS: ACETAMINOPHEN/ASPIRIN/CAFFEINE 250-250-65 MG TABLET 1 TABLET PO (08:30)
[2019-08-13 14:00] VITALS: BP 127/71; PULSE 83; RESP 19; TEMP 37; O2SAT 95
--- NOTE | 2019-08-13 15:49 | WPDNEURORHBP ---
Subjective Date/time seen: 08/13/19 15:49 Interval history: this 84-year-old woman is here after having had traumatic pneumothorax which has resolved in the recent x-ray but she was found to have scapular fracture along with rib fracture has been seen by the orthopedic physician conservative treatment has been ordered she has been walking significant enough for her to go home tomorrow off with discontinuation of the Lovenox and rest of the medication as they have been reconciled Patient denies any headache nausea vomiting chest pain shortness of breath calf pain or tenderness in her legs no fever chills sore throat Review of Systems Review of Systems: All systems reviewed & are unremarkable except as noted in HPI and below Functional Status Ambulation Ability Ability to Ambulate 10 Feet: Standby Assistance Ability to Ambulate 50 Feet With 2 Turns: Standby Assistance Ability to Ambulate 150 Feet: Standby Assistance Ambulation Assistive Devices: Walker, Rollator Transfers Ability Ability to Transfer In/Out of Chair: Standby Assistance Exam Const: General: comfortable and no acute distress HENMT: General nose exam: Normal nares present Mouth: Yes moist mucous membranes Eyes: General: appearance normal, both eyes and all related structures Neck: Neck: supple and no JVD Resp: Effort & Inspection: normal respiratory effort Auscultation: clear to auscultation bilaterally Cardio: Rate: regular rate Rhythm: regular rhythm GI: GI Palp: Yes Soft to palpation Auscultation: normal bowel sounds Skin: General skin exam: normal color and no rashes or lesions noted Neuro: Other: patient's mental status is normal cranial examination is normal the left upper extremity strength is limited because of the fracture around the scapula and also because of the rib fracture on that side otherwise her neuro exam is nonfocal she can be discharged tomorrow with home health Extrem: General: normal to inspection Psych: Mental Status: mental status grossly normal Objective Data Vital Signs Vital Signs: Vital Signs - 24 hr 08/12/19 22:00 08/13/19 06:00 08/13/19 14:00 Temperature 36.7 C 36.5 C 37.0 C Pulse Rate 84 79 83 Respiratory Rate 18 19 19 Blood Pressure 178/61 H 153/93 H 127/71 Pulse Oximetry 97 96 95 Intake/Output Intake/Output: Intake & Output 04/16/20 04/17/20 04/18/20 04/19/20 23:59 23:59 23:59 23:59 Intake Total 720 720 720 600 Balance 720 720 720 600 Meds/Results Medications: Active Medications Generic Name Dose Route Start Last Admin Trade Name Freq PRN Reason Stop Dose Admin Acetaminophen/Aspirin/Caffeine 1 tablet 08/03/19 16:42 08/13/19 08:30 Pain Reliever Plus Tablet PO 1 tablet Q4-6H PRN Administration Pain 1-3 Hydrocodone Bitart/Acetaminophen 1 tab 08/03/19 16:42 08/13/19 03:22 [place] 5-325 Mg PO 1 tab Q6H PRN Administration Moderate Pain (4-6) Al Hydrox/Mg Hydrox/Simethicone 30 ml 08/03/19 16:42 Mylanta PO QID PRN Dyspepsia Ascorbic Acid 500 mg 08/04/19 09:00 08/13/19 08:25 Vitamin C PO 500 mg DAILY [facility] Administration Calcium Carbonate 200 mg 08/03/19 17:00 08/13/19 13:00 Tums PO 200 mg QID REPLACED BY [facility] Administration Docusate Sodium 100 mg 08/03/19 17:00 08/13/19 08:25 Colace Capsule PO 100 mg BID [facility] Administration Enoxaparin Sodium 40 mg 08/05/19 09:00 08/13/19 08:27 Lovenox SUB-Q 40 mg DAILY [facility] Administration Fluticasone Propionate 1 spray 08/04/19 09:00 08/13/19 08:27 Flonase 0.05% Nasal [place] NASAL 1 spray DAILY [facility] Administration Gabapentin 400 mg 08/03/19 17:00 08/13/19 08:28 Neurontin PO 400 mg BID [facility] Administration Ibuprofen 600 mg 08/03/19 18:00 08/13/19 13:00 Motrin PO 600 mg Q6HR [facility] Administration Lovastatin 40 mg 08/04/19 09:00 08/13/19 08:29 Lovastatin PO 40 mg DAILY [facility] Administration Montelukast Sodium 10 mg 08/04/19 09:00 08/13/19 08:29
[2019-08-13 22:00] VITALS: BP 155/62; PULSE 75; RESP 18; TEMP 36.7; O2SAT 94
[2019-08-14] MEDS: IBUPROFEN 600 MG TABLET PO ×2 (04:57→11:00)
[2019-08-14 06:00] VITALS: BP 155/77; PULSE 75; RESP 18; TEMP 35.6; O2SAT 96
--- NOTE | 2019-08-14 06:12 | CONS_ITS ---
DATE OF CONSULTATION: 08/12/2019 HISTORY OF PRESENT ILLNESS: This is an 84 year female, who actually presented to the emergency department on 08/01/2019. She has had fallen and she was diagnosed with a left pneumothorax and multiple rib fractures. She continued to have pain and x-rays eventually showed that she sustained a fracture to the left scapula and Orthopedic consultation was requested. She since has been seen by General Surgery and Internal Medicine and she is stable. She is currently in rehab and she complains only of left hemithorax type pain and some posterior shoulder pain. She denies any neck pain, denies any lower extremity pain, or any other upper extremity pain aside from the posterior shoulder pain. PAST MEDICAL HISTORY: Arthritis, asthma, fibroids, hypertension, osteoporosis, uterine cancer. SURGICAL HISTORY: Bilateral knee replacement, hysterectomy. SOCIAL HISTORY: She is a former smoker. She does not take alcohol. No substance abuse. MEDICATIONS: She is on, 1. Ascorbic acid. 2. Aspirin. 3. Calcium with vitamin D. 4. Co Q10. 5. Fluticasone. 6. Gabapentin. 7. Garlic. 8. Gelatin. 9. Lovastatin. 10. Lutein. 11. Montelukast. 12. Pantoprazole. 13. Spiriva. 14. Vitamin E. ALLERGIES: [place] INHIBITORS, MEPERIDINE, SULFA. PHYSICAL EXAMINATION: The left upper extremity was examined first. She has tenderness in the scapular region. She is able to elevate the shoulder with minimal discomfort. She has no tenderness in the clavicle. She has no tenderness over the proximal humerus or in the humeral shaft. She has no tenderness in the elbow or forearm or wrist and hand. Right upper extremity, she elevates the shoulder without any difficulty. She has no tenderness in the clavicle, shoulder, arm, elbow, forearm, wrist and hand. The lower extremity examination, she moves bilateral hips without any difficulty. She performed a bilateral straight leg raise without any difficulty. She bends bilateral knees without any pain. She is able to dorsi and plantar flex the bilateral feet without any difficulty. She has no tenderness in the thighs, knee, tib-fib, foot and ankle region. Neck is nontender. Back along the thoracic spine and lumbar spine, she has no tenderness. She has no tenderness over the sacral, coccygeal region as well. IMAGING DATA: X-ray show minimally displaced left scapular fracture. At this point, she is doing very well. She has continued tenderness, but she feels very comfortable with elevating the arm, so go ahead and treat her fracture symptomatically. She does not need to be in a sling unless she has pain. She can be weightbearing as tolerated and perform activity as tolerated as far as therapy, and I told her it would take approximately 6 weeks for the fracture to heal and she may have pain up until then. She will contact the office if she has any questions for followup. MONTEZ Laura LITTLE SENIOR GRANT WRITER SENIOR GRANT WRITER D I MT: Melissa
[2019-08-14] MEDS: polyethylene glycoL 3350 17 GM POWD.PACK PO (09:19)
[2019-08-14] MEDS: MULTIVITS W-FE,MIN CHEWABLE TABLET 1 TABLET PO (09:19)
[2019-08-14] MEDS: CALCIUM CARBONATE (TUMS) 500 MG (200 MG ELEMENTAL) PO (09:19)
[2019-08-14] MEDS: DOCUSATE SODIUM 100 MG CAPSULE PO (09:20)
[2019-08-14] MEDS: GABAPENTIN 400 MG CAPSULE PO (09:20)
[2019-08-14] MEDS: ASCORBIC ACID 500 MG TABLET PO (09:20)
[2019-08-14] MEDS: ENOXAPARIN 40 MG/0.4 ML SYRINGE SUB-Q (09:20)
[2019-08-14] MEDS: CHOLECALCIFEROL 1,000 UNIT TABLET 1000 UNITS PO (09:20)
[2019-08-14] MEDS: FLUTICASONE PROPIONATE 0.05% NA SPR 16 GM BTL (*BKC) 1 SPRAY NASAL (09:20)
[2019-08-14] MEDS: LOVASTATIN 20 MG TABLET 40 MG PO (09:21)
[2019-08-14] MEDS: PANTOPRAZOLE 40 MG TABLET PO (09:21)
[2019-08-14] MEDS: MONTELUKAST SODIUM 10 MG TABLET PO (09:21)
[2019-08-14] MEDS: VITAMIN E 400 UNIT CAPSULE PO (09:21)
--- NOTE | 2019-08-16 13:38 | PM.DS ---
DS: Diagnosis Admitting Diagnosis Admitting Diagnosis: Multiple fractures of ribs, left side, initial encounter for closed fracture Discharge Diagnosis (1) Scapular fracture: Code(s): S42.109A - Fracture of unspecified part of scapula, unspecified shoulder, initial encounter for closed fracture Status: Acute (2) Pneumothorax, left: Code(s): J93.9 - Pneumothorax, unspecified Status: Acute (3) Syncope: Onset Date: ~08/02/19 Qualifiers: Syncope type: unspecified Qualified Code(s): R55 - Syncope and collapse Code(s): R55 - Syncope and collapse Status: Acute (4) Essential hypertension: Code(s): I10 - Essential (primary) hypertension Status: Acute (5) Fall from ground level: Onset Date: ~08/01/19 Code(s): W18.30XA - Fall on same level, unspecified, initial encounter Status: Acute (6) Leukocytosis: Qualifiers: Leukocytosis type: unspecified Qualified Code(s): D72.829 - Elevated white blood cell count, unspecified Code(s): D72.829 - Elevated white blood cell count, unspecified Status: Resolved (7) GERD (gastroesophageal reflux disease): Qualifiers: Esophagitis presence: without esophagitis Qualified Code(s): K21.9 - Gastro-esophageal reflux disease without esophagitis Code(s): K21.9 - Gastro-esophageal reflux disease without esophagitis Status: Chronic (8) Asthma: Qualifiers: Asthma complication type: uncomplicated Asthma persistence: intermittent Asthma severity: mild Qualified Code(s): J45.20 - Mild intermittent asthma, uncomplicated Code(s): J45.909 - Unspecified asthma, uncomplicated Status: Chronic (9) Hyperlipidemia: Onset Date: Unknown Qualifiers: Hyperlipidemia type: unspecified Qualified Code(s): E78.5 - Hyperlipidemia, unspecified Code(s): E78.5 - Hyperlipidemia, unspecified Status: Chronic (10) Traumatic fracture of ribs of left side with pneumothorax: Onset Date: ~08/01/19 Code(s): S22.42XA - Multiple fractures of ribs, left side, initial encounter for closed fracture; S27.0XXA - Traumatic pneumothorax, initial encounter Status: Acute (11) Left rib fracture: Onset Date: ~08/01/19 Code(s): S22.32XA - Fracture of one rib, left side, initial encounter for closed fracture Status: Acute DS: Summary Hospital Course Reason for hospitalization: this 84-year-old wound with multiple diagnosis including the scapular fracture rib fracture and resolved pneumothorax received the physical therapy of compression therapy and gait training and medical management also had our orthopedic consult and conservative treatment of for the scapular fracture was recommended Hospital Course: the patient received the medical management of her multiple issues and was able to achieve the following independent measures eating independent, oral hygiene independent, toileting independent, bathing supervision, upper body dressing set up, lower body dressing independent, foot where independent, rolling in bed independent, sitting to lying independent, lying to sitting independent, sit to stand independent, chart transfers independent, 12 transfers independent, car transfers independent, walking 10 feet independent, walking 50 feet with 2 turns supervision, walking 150 feet partial assistance, walking 10 feet uneven surfaces supervision, [place] step partial assistance, 4 steps supervision, 12 steps supervision, picking up objects supervision, wheelchair 50 feet partial assistance, wheelchair and 50 feet patient's was unable to. The patient was able to be discharged with home health to follow of no falls were recorded Time Spent with Patient Time attestation: Total time spent providing and/or coordinating discharge services: Exam Narrative: Exam Narrative: patient remained awake alert and well oriented time place and pers
== END 2019-08-14 11:10 | disposition home health service (06) | DRG 560 ==
PROVIDERS: Admitting Provider Psychiatry & Neurology Neurology; PCP Internal Medicine; Visit Provider Psychiatry & Neurology Neurology
DX: S22.42XD Multiple fractures of ribs, left side, subsequent encounter for fracture with routine healing (principal); I50.30 Unspecified diastolic (congestive) heart failure; S27.0XXD Traumatic pneumothorax, subsequent encounter; S42.102D Fracture of unspecified part of scapula, left shoulder, subsequent encounter for fracture with routine healing; E78.5 Hyperlipidemia, unspecified; I11.0 Hypertensive heart disease with heart failure; J45.909 Unspecified asthma, uncomplicated; K21.9 Gastro-esophageal reflux disease without esophagitis; M81.0 Age-related osteoporosis without current pathological fracture; M41.9 Scoliosis, unspecified; M47.812 Spondylosis without myelopathy or radiculopathy, cervical region; M16.11 Unilateral primary osteoarthritis, right hip; R29.6 Repeated falls; Z96.653 Presence of artificial knee joint, bilateral; Z87.891 Personal history of nicotine dependence; Z85.42 Personal history of malignant neoplasm of other parts of uterus; W19.XXXD Unspecified fall, subsequent encounter
CPT/HCPCS: 36415; 71046; 73502; 80048; 85025; 94640; 97110; 97116; 97161; 97166; 97530; 97535; A9270; J1650

== ENCOUNTER 2019-10-04 19:12 | Observation (INO) | payer MEDICARE, SELFPAY ==
--- NOTE | ~2019-10-04 | CT_ITS ---
EXAMINATION: CT brain wo con DATE: 10/04/2019 20:50 INDICATION: Unresponsive episode. TECHNIQUE: Computed tomography (CT) of the head was performed without intravenous contrast. The mA wa s adjusted according to patient size. Iterative reconstruction technique was employed. The dose-lengt h product was 681.00 mGy-cm. COMPARISON: Head CT 08/01/2019 FINDINGS: There are scattered areas of low attenuation in the cerebral white matter. There is no intr acranial hemorrhage, acute infarction, or abnormal intracranial mass lesion. The ventricles are ria l in size. There are likely changes of ocular lens replacement surgeries. The paranasal sinuses are c lear. The mastoid air cells are normal. IMPRESSION: 1. Stable extensive nonspecific cerebral white matter disease, which likely represents chronic small vessel ischemic disease. Reviewed, dictated and finalized at location A. IMPRESSION: 1. Stable extensive nonspecific cerebral white matter disease, which likely rep resents chronic small vessel ischemic disease.
--- NOTE | ~2019-10-04 | MR_ITS ---
EXAMINATION: MR brain/brain stem wo con DATE: 10/05/2019 20:32 INDICATION: Unresponsiveness. TECHNIQUE: Magnetic resonance imaging (MRI) of the brain and brainstem was performed without intraven ous contrast. Sequences included sagittal and axial T1-weighted FSE, axial diffusion-weighted FS EPI, axial T2*-weighted GRE, axial T2-weighted FLAIR Propeller, and axial T2-weighted Propeller. Apparent diffusion coefficient (ADC) maps were created. COMPARISON: Head CT 10/04/2019, CT cervical spine 08/01/2019 FINDINGS: There are scattered areas of increased T2-weighted signal intensity in the cerebral white m atter. There is no intracranial hemorrhage, acute infarction, or abnormal intracranial mass lesion. T he ventricles are normal in size. The paranasal sinuses are clear. There are likely changes of ocular lens replacement surgeries. There is a small left mastoid effusion. IMPRESSION: 1. Extensive nonspecific cerebral white matter disease, which likely represents chronic small vessel ischemic disease. Reviewed, dictated and finalized at location A.
--- NOTE | ~2019-10-04 | US_ITS ---
EXAMINATION: US carotid duplex BI DATE: 10/05/2019 11:37 INDICATION: Syncope. Carotid atherosclerosis. TECHNIQUE: Grayscale, color Doppler, and pulsed Doppler images of the cervical carotid arteries were obtained. The degree of vessel stenosis is placed in one of the following categories: normal, <50%, 5 0-69%, >=70% but less than near-occlusion, near-occlusion, or total occlusion. Note that percent sten osis relative to normal distal artery lumen diameter is indirectly measured from velocity measurement s as described by Tony, et al. Radiology 2003; 229:340-346. COMPARISON: 08/02/2019 FINDINGS: RIGHT: The right common carotid artery (CCA) peak systolic velocity (PSV) is 68 cm/s. The right internal car otid artery (ICA) PSV is 56 cm/s. The right ICA end-diastolic velocity (EDV) is 18 cm/s. The right IC A/CCA PSV ratio is 0.8. Grayscale and color Doppler images yield an estimate of <50% diameter reducti on from plaque in the ICA. The external carotid artery (ECA) PSV is 79 cm/s. There is antegrade flow in the right vertebral artery. LEFT: The left CCA PSV is 59 cm/s. The left ICA PSV is 69 cm/s. The left ICA EDV is 19 cm/s. The left ICA/C CA PSV ratio is 1.2. Grayscale and color Doppler images yield an estimate of <50% diameter reduction from plaque in the ICA. The ECA PSV is 57 cm/s. There is antegrade flow in the left vertebral artery. IMPRESSION: 1. <50% stenosis in the right internal carotid artery. 2. <50% stenosis in the left internal carotid artery. Reviewed, dictated and finalized at location A.
--- NOTE | ~2019-10-04 | XR_ITS ---
EXAMINATION: XR chest 2V DATE: 10/04/2019 20:58 INDICATION: Unresponsive episode. TECHNIQUE: Frontal and lateral views of the chest were obtained. COMPARISON: Chest 2 views 08/10/2019 FINDINGS: There is mild atelectasis at left lung base. No pleural effusion or pneumothorax. The heart size is normal. There are old rib fractures bilaterally. Again seen is a fracture deformity of left scapula. IMPRESSION: 1. Mild atelectasis at left lung base. Reviewed, dictated and finalized at location A.
[2019-10-04 19:16] VITALS: BP 99/68; PULSE 63; RESP 18; TEMP 36.7; O2SAT 94
--- NOTE | 2019-10-04 19:24 | ECG_ITS ---
Measurements Intervals [place] Rate: 65 P: 50 OK: 229 QRS: 4 QRSD: 76 T: 22 QT: 399 QTc: 415 Interpretive Statements SINUS RHYTHM WITH FIRST DEGREE AV BLOCK CONSIDER INFERIOR INFARCT, AGE INDETERMINATE BASELINE ARTIFACT- I, II, AVR ABNORMAL ECG Electronically Signed On 11-14-2019 11:25:38 CDT by Adam Wynn D.O.
--- NOTE | 2019-10-04 19:26 | ED.SYNCOPE ---
HPI - Syncope General Chief Complaint: Syncope Stated Complaint: ams Source: patient, family and EMS Mode of arrival: EMS Limitations: altered mental status History of Present Illness HPI narrative: Patient is an 84-year-old female who was brought to our facility via EMS after she was found unresponsive in her apartment by her son who checked on her at approximately 630. Her son is present at bedside, states that he went to check on his mother, when he into the apartment she was slumped over in a chair, unresponsive. He called 911, was instructed to move the patient to the floor, at that point, the patient started to regain consciousness. When EMS arrived, patient was alert and oriented to person and place, not to time. She is hypotensive, other vital signs are normal. No hypoglycemia. Patient was following commands without any focal neurological deficits. Patient was transported to our facility. At the time of assessment, patient is alert and oriented to person, place, and to time. She remembers her son talking to her, does not recall any prodromal symptoms such as chest pain, palpitations, shortness of breath. Unknown how long patient was truly unresponsive. Patient denies any pain, no shortness of breath, no abdominal pain. Patient did eat and drink today. Patient recently had some changes to her antihypertensives per her son. Related Data Home Medications Medication Instructions Recorded Confirmed Adult Multivitamin Gummies 200 mcg PO DAILY 08/01/19 10/04/19 Excedrin Migraine 1 tablet PO Q4-6H PRN 08/01/19 10/04/19 ascorbic acid (vitamin C) [Vitamin 500 mg PO DAILY 08/01/19 10/04/19 C] calcium carbonate [Calcium 500] 500 mg PO QID 08/01/19 10/04/19 cholecalciferol (vitamin D3) 25 mcg PO DAILY 08/01/19 10/04/19 [Vitamin D3] vitamin E 400 unit PO DAILY 08/01/19 10/04/19 docusate sodium 100 mg PO DAILY 10/04/19 10/04/19 gabapentin 800 mg PO BID 10/04/19 10/04/19 hydrocodone-acetaminophen [[place]] 1 tablet PO BID PRN 10/04/19 10/04/19 valsartan 80 mg PO DAILY 10/04/19 10/04/19 Allergies Allergy/AdvReac Type Severity Reaction Status Date / Time CAYETANO Inhibitors Allergy Severe Unknown Verified 08/01/19 08:29 meperidine Allergy Unknown Unknown Verified 08/01/19 08:29 Sulfa (Sulfonamide Allergy Unknown Unknown Verified 08/01/19 08:29 Antibiotics) sulfanilamide Allergy Unknown Unknown Verified 08/01/19 08:29 sulfur dioxide Allergy Unknown Unknown Verified 08/01/19 08:29 Review of Systems Review of Systems: Narrative: CONSTITUTIONAL: Denies fever, chills, or sweats. EYES: Denies visual changes, redness, or discharge. ENT: Denies rhinorrhea, congestion, sore throat, or otalgia. CARDIOVASCULAR: Denies chest pain, palpitations, or edema. RESPIRATORY: Denies cough or dyspnea. GASTROINTESTINAL: Denies abdominal pain, nausea, vomiting GENITOURINARY: Denies dysuria or hematuria. SKIN: Denies rash or itching. MUSCULOSKELETAL: Denies back pain, joint pain, or myalgia. NEUROLOGIC: Denies headache, numbness, or weakness. [facility] Past Medical History Medical History Asthma C2 cervical fracture Type 2 odontoid fracture sustained in fall 05/07/2016, requiring no cervical intervention. 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 Diastolic dysfunction without heart failure On echocardiogram in August 2011. Ejection fraction at that time was 54%. Essential hypertension GERD (gastroesophageal reflux disease) Hyperlipidemia (Unknown) Multiple falls Osteoarthritis Osteoporosis (Unknown) Right rib fracture Scoliosis Uterine cancer Status post total hysterectomy. Surgical History Surgical History History of bilateral knee replacement History of hysterectomy For uterine cancer. Family History Family History Sibling Hypertension Family history of coron
[2019-10-04] MEDS: SODIUM CHLORIDE 0.9% IV 1,000 ML 999 ML IV CONT (19:39)
[2019-10-04 19:58] LABS: Basophils Percent Auto 0.3 % (0.2-1.2); Eosinophils Absolute Auto 0.1 K/mm3 (0-0.3); Eosinophils Percent Auto 1.4 % (0-4.4); Hematocrit 43.3 % (37.0-47.0); Hemoglobin 14.6 g/dL (12.0-15.0); Immature Granulocyte Absolute 0.03 K/mm3 (0.00-0.031); Immature Granulocyte Percent A 0.5 % (0-0.5); Mean Corpuscular HGB Conc 33.7 g/dl (32-36); Mean Corpuscular Hemoglobin 31.1 pg (26-34); Mean Corpuscular Volume 92.3 fl (80-100); Mean Platelet Volume 10.3 fl (7.4-10.4); Monocytes Absolute Auto 0.4 K/mm3 (0.1-0.6); Monocytes Percent Auto 6.6 % (2.6-8.5); Neutrophils Absolute Auto 3.9 K/mm3 (1.3-6.7); Neutrophils Percent Auto 61.2 % (45.5-73.1); Platelet Count Result 195 k/mm3 (150-375); Red Blood Count 4.69 M/mm3 (4.2-5.4); Red Cell Distribution Width 12.9 % (11.5-14.5); White Blood Count 6.3 K/mm3 (4.5-10.0)
[2019-10-04 20:08] LABS: Prothrombin Time 13.3 Seconds (11.1-14.7)
[2019-10-04 20:09] LABS: Alanine Aminotransferase 16 U/L (4-35); Albumin Level 3.6 g/dL (3.5-5.1); Alkaline Phosphatase 57 U/L (38-126); Aspartate Amino Transferase 26 U/L (14-36); Bilirubin,Total 0.5 mg/dL (0.2-1.3); Blood Urea Nitrogen 11 mg/dL (7-17); Calcium 8.7 mg/dL (8.4-10.2); Carbon Dioxide 26 mmol/L (22-30); Chloride 105 mmol/L (98-107); Estimated CRCL calculation 46 ml/min; Estimated Glomerular Filt Rate > 60; Glucose 125 mg/dL (65-105); Partial Thromboplastin Time 26.3 SECONDS (22.3-36.8); Potassium 3.2 mmol/L (3.4-5.0); Sodium 135 mmol/L (137-145)
[2019-10-04 20:10] LABS: Lactic Acid Reflex 1.5 mmol/L (0.7-2.1)
[2019-10-04 20:21] LABS: Troponin I < 0.012 ng/mL (0.000-0.034)
[2019-10-04 20:35] VITALS: BP 122/76; PULSE 65; RESP 20; O2SAT 94
--- NOTE | 2019-10-04 21:30 | PC.NURSE ---
patient refused to be straight cathed for ua
[2019-10-04 22:00] VITALS: BP 153/67; PULSE 70; RESP 16; TEMP 36.4; O2SAT 99
--- NOTE | 2019-10-04 22:00 | ADMGEN ---
This patient, Mitra Verde, was admitted to Medical Room 341-01. Patient/family oriented to hospital policies and general routines including ID bracelet, bed and alarms, visiting hours, pain management, procedures, bathroom and other care routines, personal items, smoking policy, room service/diet, and visiting hours. Valuables list has been completed. Information on how to activate the Rapid Response Team has been discussed. Patient/Family are encouraged to report perceived risks to care and to ask questions if they do not understand what they are told or what they should do.
[2019-10-04 22:12] VITALS: PULSE 97
[2019-10-04 22:21] VITALS: BMI 26.9
--- NOTE | 2019-10-04 23:03 | PM.IMHP ---
H&P: HPI History of Present Illness Chief complaint: Unresponsive episode Narrative: This is a pleasant 84 year old female with known Scoliosis, diastolic heart failure, and HTN who presented to the hospital with a complaint of suffering an unresponsive episode at home today. Apparently the patient's son found her unresponsive slumped over in her chair at home today around 6:30 pm. The patient regained consciousness before he could move her to the floor. The patient denies any prodrome of shortness of breath or chest pain today. She doesn't remember any details surrounding todays events. In the ER tonight the patient has been asymptomatic and denies any fevers, chills, cough, shortness of breath, chest pain, headache, dizziness, abdominal pain, nausea, vomiting, diarrhea, dysuria, hematuria, LE swelling or rectal bleeding. She denies any focal neurological deficits. The patient was evaluated in the ER tonight and routine labs were unremarkable. CT brain was also unremarkable. The patient denies any history of previous episodes of syncope, CVA, or seizure disorder. We have been asked to admit the patient to the hospital for observation. On my encounter with the patient she is asking me when she can go home. Review of Systems Review of Systems: All systems reviewed & are unremarkable except as noted in HPI and below PMFSH Past Medical History Medical History Asthma C2 cervical fracture Type 2 odontoid fracture sustained in fall 05/07/2016, requiring no cervical intervention. 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 Diastolic dysfunction without heart failure On echocardiogram in August 2011. Ejection fraction at that time was 54%. Essential hypertension GERD (gastroesophageal reflux disease) Hyperlipidemia (Unknown) Multiple falls Osteoarthritis Osteoporosis (Unknown) Right rib fracture Scoliosis Uterine cancer Status post total hysterectomy. Surgical History Surgical History History of bilateral knee replacement History of hysterectomy For uterine cancer. Family History Family History Sibling Hypertension Family history of coronary artery disease Mother Hypertension Social History Social History Social History: The patient lives in [place]. She taught nursing for 30 years. Her son, Medardo, is her surrogate decision maker. She is a modified code, medications only. She has a remote smoking history and quit in 1962. No alcohol or drug abuse. Smoking packs per day: 2 Smoking cigarettes per day: 40.0 Years smoked: 3 Smoking pack-years: 6.00 Smoking status: Former smoker Tobacco type: cigarettes Second hand tobacco smoke exposure: Yes Alcohol intake: never Substance use: never Substance use type: does not use Gender identity (if verbalized by the patient): Female Spiritual care concerns: No Agree to blood products: No Meds Home Medications and Allergies Home Medications Medication Instructions Recorded Confirmed Type Adult Multivitamin Gummies 200 mcg PO DAILY 08/01/19 10/04/19 History Excedrin Migraine 1 tablet PO Q4-6H PRN 08/01/19 10/04/19 History ascorbic acid (vitamin C) [Vitamin 500 mg PO DAILY 08/01/19 10/04/19 History C] calcium carbonate [Calcium 500] 500 mg PO QID 08/01/19 10/04/19 History cholecalciferol (vitamin D3) 25 mcg PO DAILY 08/01/19 10/04/19 History [Vitamin D3] vitamin E 400 unit PO DAILY 08/01/19 10/04/19 History alum-mag hydroxide-simeth [Mag-Al 30 ml PO QID PRN 7 Days ml 08/03/19 10/04/19 Rx Plus] polyethylene glycol 3350 [Miralax] 17 g PO QAM 7 Days each 08/03/19 10/04/19 Rx Spiriva Respimat 2 puff INHALATION HS #1 vial 08/13/19 10/04/19 Rx fluticasone propionate 1 spray INTRANASAL DAILY #1 vial
[2019-10-04] MEDS: SODIUM CHLORIDE 0.9% IV 1,000 ML 75 ML IV CONT (23:29)
[2019-10-04] MEDS: GABAPENTIN 400 MG CAPSULE 800 MG PO (23:30)
[2019-10-05] VITALS (15 sets, daily range): BP systolic 112–153; BP diastolic 61–87; PULSE 61–96; RESP 14–18; TEMP 36.2–37.2; O2SAT 96–100
[2019-10-05 02:17] LABS: Basophils Percent Auto 0.5 % (0.2-1.2); Eosinophils Absolute Auto 0.1 K/mm3 (0-0.3); Eosinophils Percent Auto 0.9 % (0-4.4); Hematocrit 39.7 % (37.0-47.0); Hemoglobin 13.3 g/dL (12.0-15.0); Immature Granulocyte Absolute 0.02 K/mm3 (0.00-0.031); Immature Granulocyte Percent A 0.3 % (0-0.5); Lymphocytes Absolute Auto 1.86 K/mm3 (0.9-3.2); Lymphocytes Percent Auto 28.7 % (18.3-44.2); Mean Corpuscular HGB Conc 33.5 g/dl (32-36); Mean Corpuscular Hemoglobin 30.5 pg (26-34); Mean Corpuscular Volume 91.1 fl (80-100); Mean Platelet Volume 10.1 fl (7.4-10.4); Monocytes Absolute Auto 0.4 K/mm3 (0.1-0.6); Monocytes Percent Auto 6.5 % (2.6-8.5); Neutrophils Absolute Auto 4.1 K/mm3 (1.3-6.7); Neutrophils Percent Auto 63.1 % (45.5-73.1); Platelet Count Result 175 k/mm3 (150-375); Red Blood Count 4.36 M/mm3 (4.2-5.4); Red Cell Distribution Width 12.8 % (11.5-14.5); White Blood Count 6.5 K/mm3 (4.5-10.0)
[2019-10-05 02:31] LABS: Blood Urea Nitrogen 9 mg/dL (7-17); Calcium 8.1 mg/dL (8.4-10.2); Carbon Dioxide 25 mmol/L (22-30); Chloride 108 mmol/L (98-107); Estimated CRCL calculation 51 ml/min; Estimated Glomerular Filt Rate > 60; Glucose 102 mg/dL (65-105); Magnesium 1.9 mg/dL (1.6-2.3); Potassium 3.7 mmol/L (3.4-5.0); Sodium 136 mmol/L (137-145)
[2019-10-05 02:41] LABS: Troponin I < 0.012 ng/mL (0.000-0.034)
[2019-10-05 03:24] LABS: Thyroid Stimulating Hormone Reflex 0.666 uIU/mL (0.465-4.68)
[2019-10-05 08:27] LABS: Add Urine Microscopic? YES; Appearance Urine Cloudy (Clear); Bacteria Urine 1+ /hpf; Bilirubin Urine Negative (Negative); Blood Urine 1+ (Negative); Color Urine Yellow (Yellow); Glucose Urine UA Negative (Negative); Ketones Urine Negative (Negative); Leukocyte Esterase Ur Negative LEU/UL (Negative); Mucus Urine Rare /lpf; Nitrate Urine Negative (Negative); Protein Urine Negative (Negative); RBC Urine 0-2 /hpf (0-2); Specific Grav Ur 1.013 (1.001-1.035); Squamous Epithelial Cell Urine Few /hpf (Few); Transitional Epi Cells Urine Rare /hpf (None Seen)
[2019-10-05] MEDS: ASCORBIC ACID 500 MG TABLET PO (08:33)
[2019-10-05] MEDS: FLUTICASONE PROPIONATE 0.05% NA SPR 16 GM BTL (*BKC) 1 SPRAY NASAL (08:33)
[2019-10-05] MEDS: MONTELUKAST SODIUM 10 MG TABLET PO (08:33)
[2019-10-05] MEDS: DOCUSATE SODIUM 100 MG CAPSULE PO (08:33)
[2019-10-05] MEDS: CHOLECALCIFEROL 1,000 UNIT TABLET 1000 UNITS PO (08:33)
[2019-10-05] MEDS: GABAPENTIN 400 MG CAPSULE 800 MG PO ×2 (08:34→22:23)
[2019-10-05] MEDS: VITAMIN E 400 UNIT CAPSULE PO (08:34)
[2019-10-05] MEDS: CALCIUM CARBONATE (TUMS) 500 MG (200 MG ELEMENTAL) PO ×4 (08:34→22:23)
[2019-10-05] MEDS: THERAPEUTIC MULTIVITAMINS/MINERALS TAB (*BKC) 1 TABLET PO (08:34)
[2019-10-05] MEDS: LOVASTATIN 20 MG TABLET 40 MG PO (08:34)
[2019-10-05] MEDS: polyethylene glycoL 3350 17 GM POWD.PACK PO (08:35)
--- NOTE | 2019-10-05 09:20 | PM.IMPN ---
Progress Note: A&P Assessment and Plan (1) Episode of unresponsiveness: Code(s): R41.89 - Other symptoms and signs involving cognitive functions and awareness Status: Resolved Assessment and Plan: -----unclear etiology at this time. Echo, carotid Dopplers, and MRI of the brain ordered. TSH normal. UA reviewed, it does show a few white blood cells and 1+ blood but no nitrates or bacteria and the patient is having no symptoms with no leukocytosis. I do not think she has UTI at this time but will monitor the culture. On my exam the patient knew who she was and why she was in the hospital but thought she was at [facility], thought it was 1964, and thought Severo was president. I repeated the correct answers to these questions and then asked the question 3 minutes later and she was able to get them all right. . I did a neuro exam which did not show any deficits whatsoever. She did not have any slurred speech. I called the son he says she intermittently has issues with memory but usually knows where she is. Her TSH is normal and I have stopped her IV fluids since she seems euvolemic at this time. She does take narcotic medications at home which could be a factor but the son states this has never been an issue in that she takes her own medications without problem. She never takes more medications than she needs to and usually has pills left over at the end of the month. Patient may benefit from a heart monitor if the above workup is unrevealing. She sees Dr. Gonzales as a primary care physician at [facility]. Will likely discharge tomorrow if workup is negative and the patient has no further events. Son states she has been eating and drinking well and shows no signs of infection. (2) Hypokalemia: Code(s): E87.6 - Hypokalemia Status: Acute Assessment and Plan: -----resolved (3) Essential hypertension: Code(s): I10 - Essential (primary) hypertension Status: Acute Assessment and Plan: -----last blood pressure 112/66 (4) GERD (gastroesophageal reflux disease): Qualifiers: Esophagitis presence: without esophagitis Qualified Code(s): K21.9 - Gastro-esophageal reflux disease without esophagitis Code(s): K21.9 - Gastro-esophageal reflux disease without esophagitis Status: Chronic Assessment and Plan: ----stable. Contiue tums as needed. (5) Hyperlipidemia: Onset Date: Unknown Qualifiers: Hyperlipidemia type: unspecified Qualified Code(s): E78.5 - Hyperlipidemia, unspecified Code(s): E78.5 - Hyperlipidemia, unspecified Status: Chronic Assessment and Plan: -----Continue statin therapy. Additional Plan Time Spent With Patient Time with patient: 25 - 35 minutes Subjective Date/time seen: 10/05/19 09:20 Interval history: Pt is a 84-year-old female found to be unresponsive by her son. Patient was seen today and seemed confused. She answered all my questions appropriately but thought it was 1960 and treatment was the president. Patient states that she is doing okay. She is not having any generalized pain, chest pain, shortness of breath, urinary frequency, dysuria, abdominal pain, nausea or vomiting. Patient states that the last thing she remembers yesterday was going to the table to eat and the next thing she knew she woke up in the ambulance. She did not urinate on herself. She has never had any history of seizures or heart problems. She has not had any shortness of breath or chest pain last 6 months doing her normal activities. I spoke with Medardo, her son, who said he went to check on his mom and she was unconscious and unresponsive. He called 911 and they told her to lower her to the floor. By the time he got to do this, EMS had already arrived and they put her on the gurney. She did not wake up on the gurney but apparently woke up in the ambulance where her sy
--- NOTE | 2019-10-05 12:02 | PC.NURSE ---
Report called to Sharon JOSEPH on 3 Med/Surg 1202.
--- NOTE | 2019-10-05 12:28 | PC.NURSE ---
Transferred via bed to room 330/01 at 1220.
--- NOTE | 2019-10-05 12:49 | PCPTNOTE ---
Attempted PT evaluation. Pt pending COVID 19 results. Will evaluate when results received and pt medically appropriate.
[2019-10-05 16:51] LABS: SARS-CoV-2 RNA PCR Negative
--- NOTE | 2019-10-05 20:01 | PC.NURSE ---
Addendum entered by Almita Graham RN 10/05/19 20:01: 10/05/19 @ 1945 Original Note: To MRI per wheelchair.
--- NOTE | 2019-10-05 20:50 | PC.NURSE ---
Returned from MRI per wheelchair.
[2019-10-05] MEDS: ACETAMINOPHEN/ASPIRIN/CAFFEINE 250-250-65 MG TABLET 1 TABLET PO (22:28)
--- NOTE | 2019-10-05 23:10 | ECHO_ITS ---
Patient Info Name: Mitra Verde Age: 84 years : 1935 Gender: Female Ht: 61 in Wt: 142 lbs BSA: 1.68 m2 HR: 77 bpm BP: 112 / 66 mmHg Heart Rhythm: Sinus Rhythm Technical Quality: Good Exam Date: 10/05/2019 11:28 AM Exam Location: [facility] Exam Room: 341 Patient Status: Outpatient Admit Date: 10/04/2019 Staff Ordering Physician: Mook Cadet MD Loan Examiner: Savanna Sales RDCS Attending Provider: Jeri Ortega PA-C Referring Physician: Chichi MERINO; Exam Type: CA echo doppler color flow Study Info Indications - syncope Complete two-dimensional, color flow and Doppler transthoracic echocardiogram is performed. Summary 1. Left ventricular chamber dimension is normal. 2. Left ventricular systolic function is mildly reduced, estimated at 50-55%. 3. There is mild asymmetric septal increased left ventricular wall thickness. 4. The left ventricular diastolic function is grade I diastolic dysfunction. 5. The basal inferior wall, mid inferior wall, and basal inferolateral wall are hypokinetic. 6. Left atrial chamber dimension is mildly enlarged. 7. There is moderate aortic valve calcification. 8. There is mild mitral valve regurgitation. 9. There is mild tricuspid valve regurgitation. Left Ventricle Left ventricular chamber dimension is normal. Left ventricular systolic function is mildly reduced, estimated at 50-55%. There is mild asymmetric septal increased left ventricular wall thickness. Left ventricular septal wall motion is abnormal with septal motion related to bundle branch block. The left ventricular diastolic function is grade I diastolic dysfunction. The basal inferior wall, mid inferior wall, and basal inferolateral wall are hypokinetic. All other ramirez appear normal. Right Ventricle Right ventricular chamber dimension is normal. Right ventricular systolic function is normal. Left Atria Left atrial chamber dimension is mildly enlarged. Right Atria Right atrial chamber dimension is normal. Atrial Septum Intact interatrial septum visualized by color flow imaging. Aortic Valve The aortic valve is trileaflet. There is no aortic valve stenosis. There is trace aortic valve regurgitation. There is moderate aortic valve calcification. Pulmonic Valve The pulmonic valve is normal. There is no pulmonic valve stenosis. There is trace pulmonic regurgitation. Mitral Valve The mitral valve has thickened leaflets. There is no mitral valve stenosis. There is mild mitral valve regurgitation. Tricuspid Valve The tricuspid valve leaflets are normal. There is no significant tricuspid valve stenosis. There is mild tricuspid valve regurgitation. No pulmonary hypertension, estimated pulmonary arterial systolic pressure is 30 mmHg. Pericardium/Pleural The pericardium appears normal. There is no pericardial effusion. Inferior Vena Cava Normal inferior vena cava with >50% collapse upon inspiration consistent with normal right atrial pressure, 10 mmHg. Aorta The aortic root size at the sinus of Valsalva is normal. The prox ascending aorta size is normal. There is mild aortic atherosclerosis. Left Ventricular Outflow Tract Name Value Normal LVOT 2D
[2019-10-06] VITALS: PULSE 90
[2019-10-06 02:00] VITALS: BP 119/81; PULSE 90; RESP 18; TEMP 37.2; O2SAT 96
[2019-10-06 04:00] VITALS: PULSE 71
[2019-10-06 06:00] VITALS: BP 148/78; PULSE 73; RESP 20; TEMP 36.6; O2SAT 97
[2019-10-06 08:00] VITALS: PULSE 106
[2019-10-06] MEDS: GABAPENTIN 400 MG CAPSULE 800 MG PO (09:58)
[2019-10-06] MEDS: CALCIUM CARBONATE (TUMS) 500 MG (200 MG ELEMENTAL) PO ×2 (09:58→13:25)
[2019-10-06] MEDS: CHOLECALCIFEROL 1,000 UNIT TABLET 1000 UNITS PO (09:59)
[2019-10-06] MEDS: DOCUSATE SODIUM 100 MG CAPSULE PO (09:59)
[2019-10-06] MEDS: ASCORBIC ACID 500 MG TABLET PO (09:59)
[2019-10-06] MEDS: MONTELUKAST SODIUM 10 MG TABLET PO (09:59)
[2019-10-06] MEDS: THERAPEUTIC MULTIVITAMINS/MINERALS TAB (*BKC) 1 TABLET PO (09:59)
[2019-10-06] MEDS: LOVASTATIN 20 MG TABLET 40 MG PO (09:59)
[2019-10-06] MEDS: polyethylene glycoL 3350 17 GM POWD.PACK PO (10:00)
[2019-10-06] MEDS: VITAMIN E 400 UNIT CAPSULE PO (10:00)
--- NOTE | 2019-10-06 11:03 | PM.CNCAR ---
Assessment and Plan Assessment and plan (1) Syncope: Onset Date: ~08/02/19 Qualifiers: Syncope type: unspecified Qualified Code(s): R55 - Syncope and collapse Code(s): R55 - Syncope and collapse Status: Acute Assessment and Plan: concerning for arrhythmogenic etiology. Patient had sudden onset of apparent syncope. No significant prodrome. monitoring coordinator is personally reviewed without any significant events since admission. Occasional PVCs are seen. She does have an echocardiogram which shows some wall motion abnormalities consistent with the EKG showing inferior infarction. Will order a ekg monitor tech for 30 days. Lexiscan myocardial perfusion study for ischemic evaluation is also to be order. She does have asymmetric septal hypertrophy But no evidence of obstruction. Regardless, she is encouraged to stay hydrated. initiate aspirin 81 mg p.o. daily until workup is complete. Will check a free T4 level also. Avoid AV or SA preston agents at this point given the uncertainty of etiology of syncope. she will need follow-up in our office. (2) Essential hypertension: Code(s): I10 - Essential (primary) hypertension Status: Acute Assessment and Plan: Controlled on ARB (3) Abnormal EKG: Code(s): R94.31 - Abnormal electrocardiogram [ECG] [EKG] Status: Acute Assessment and Plan: as above (4) Hyperlipidemia: Onset Date: Unknown Qualifiers: Hyperlipidemia type: unspecified Qualified Code(s): E78.5 - Hyperlipidemia, unspecified Code(s): E78.5 - Hyperlipidemia, unspecified Status: Chronic Assessment and Plan: on statin History of Present Illness History of Present Illness Consult date/time: 10/06/19 11:03 Requesting physician: Jeri Ortega PA-C Consult reason: Other ( syncope) Reason For Visit: Unresponsive episode Narrative: date of service 10/06/2019 Reason for consultation: Syncope History: Patient is an 84-year-old female who I have been asked to see to give an opinion / recommendation and treatment for syncope at the request of Jeri Ortega. Patient was reportedly in her usual state of health whenever she was found unresponsive slumped over in her chair. Patient states that she was otherwise feeling fine and had no prodrome. She also states that she has had no recent chest pain, syncope, presyncope, paroxysmal nocturnal dyspnea, orthopnea. No edema. She had no associated dizziness or palpitations at the time of her syncopal episode. She does have some EKG findings that show an inferior infarction but this is not new as compared to previous EKG in 2012. Echocardiogram also performed and personally read showing normal function but with wall motion abnormalities. Patient had no focal weakness or numbness. CT scan of brain was unremarkable for any acute problems. No loss of bladder or bowel. Reportedly the patient's son found her and EMS was called. According to hospitalists, the patient's son states that she did not awaken despite being moved around by paramedics. This would argue against her simply falling asleep. she also does not think that she simply fell asleep. Review of Systems Review of Systems: All systems reviewed & are unremarkable except as noted in HPI and below Constitutional: Constitutional: Denies weakness Eyes: Eyes: Denies blurry vision ENT: Reports Normal hearing present Cardiovascular: Cardiovascular: Denies chest pain and Denies leg edema Respiratory: Respiratory: Denies dyspnea and Denies dyspnea on exertion Gastrointestinal: Gastrointestinal: Denies abdominal pain and Denies bloating Genitourinary: Genitourinary: Denies hematuria and Denies flank pain Musculoskeletal: Musculoskeletal: Denies back pain and Denies neck pain Integumentary/Breasts: Skin/Breast: Denies dry skin and Denies unusual bruising Neurologic: Denies headache(s) and Denies numbness Psy
[2019-10-06 12:00] VITALS: PULSE 94
--- NOTE | 2019-10-06 12:04 | PM.DS ---
DS: Admitting Diagnosis Admitting Diagnosis Admitting Diagnosis: Other symptoms and signs involving cognitive functions and awareness DS: Discharge Diagnosis Discharge Diagnosis (1) Episode of unresponsiveness: Code(s): R41.89 - Other symptoms and signs involving cognitive functions and awareness Status: Resolved Assessment and Plan: -----unclear etiology at this time. Echo, carotid Dopplers, and MRI of the brain ordered. TSH normal. UA reviewed and after discharge culture came back with some bacteria growth and macrobid was called into her pharmacy and Medardo, son, was notified. I do not think this was the cause of her unresponsiveness. Neuro exam did not show any deficits whatsoever. She did not have any slurred speech. I called the son he says she intermittently has issues with memory. She does take narcotic medications at home which could be a factor but the son states this has never been an issue in that she takes her own medications without problem. She never takes more medications than she needs to and usually has pills left over at the end of the month. COVID negative. Cardiology consulted and agreed with heart monitor to assess for arrhythmias. PE less likely as pt has no SOB (2) Hypokalemia: Code(s): E87.6 - Hypokalemia Status: Acute Assessment and Plan: -----resolved (3) Essential hypertension: Code(s): I10 - Essential (primary) hypertension Status: Acute Assessment and Plan: -----last blood pressure 148/78 (4) GERD (gastroesophageal reflux disease): Qualifiers: Esophagitis presence: without esophagitis Qualified Code(s): K21.9 - Gastro-esophageal reflux disease without esophagitis Code(s): K21.9 - Gastro-esophageal reflux disease without esophagitis Status: Chronic Assessment and Plan: ----stable. Contiue tums as needed. (5) Hyperlipidemia: Onset Date: Unknown Qualifiers: Hyperlipidemia type: unspecified Qualified Code(s): E78.5 - Hyperlipidemia, unspecified Code(s): E78.5 - Hyperlipidemia, unspecified Status: Chronic Assessment and Plan: -----Continue statin therapy. (6) Abnormal EKG: Code(s): R94.31 - Abnormal electrocardiogram [ECG] [EKG] Status: Acute (7) UTI (urinary tract infection): Code(s): N39.0 - Urinary tract infection, site not specified Status: Acute DS: Summary Hospital Course Reason for hospitalization: Unresponsiveness Hospital Course: Patient is an 84-year-old female who was found to be unresponsive sitting at the kitchen table by her son. The son states that she was not responding and he called 911, when EMS got there, she was still not responding and they put her on the gurney. She did not wake up until she was in the ambulance. The patient had no symptoms before this event and had no postictal state when she woke up. Please see above for further detail. 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 Cardiology was consulted and recommend a outpatient monitor and stress test. She was started on 81 mg of aspirin. Patient had no additional events at the hospital and was ready to go home. I called her son Medardo and let him know about the plan of care at this time. The patient's son were educated about the worrisome signs and symptoms to come back to emergency room for and was discharged in stable condition. Status at Discharge Overall status at discharge: patient is back to baseline Time Spent with Patient Time attestation: Total time spent providing and/or coordinating discharge services:36 min Time spent: Greater than 30 minutes Exam Narrative: Exam Narrative: General: Elderly patient resting comfortably in bed in no acute distress HEENT: normocephalic Neck: supple Neuro: She was alert and knew her name but t
--- NOTE | 2019-10-11 08:52 | PC.NURSE ---
Blood cx are negative
== END 2019-10-06 14:25 | disposition home or self-care (01) ==
LOC: ANHED 21:29 → ANH3MED 21:31 → ANH3MEDSUR 10-06 12:04 → ANH3MED 10-09 13:48 → ANH3MEDSUR 10-09 13:48
PROVIDERS: Internal Medicine Cardiovascular Disease; Admitting Provider Family Medicine; Emergency Provider Emergency Medicine; PCP Internal Medicine; Visit Provider Physician Assistant
DX: R41.89 Other symptoms and signs involving cognitive functions and awareness (principal); E87.6 Hypokalemia; I11.0 Hypertensive heart disease with heart failure; I50.30 Unspecified diastolic (congestive) heart failure; K21.9 Gastro-esophageal reflux disease without esophagitis; E78.5 Hyperlipidemia, unspecified; R55 Syncope and collapse; R94.31 Abnormal electrocardiogram [ECG] [EKG]; R82.90 Unspecified abnormal findings in urine; R29.6 Repeated falls; Z87.891 Personal history of nicotine dependence; Z20.828 Contact with and (suspected) exposure to other viral communicable diseases
CPT/HCPCS: 36415; 70450; 70551; 71046; 80048; 80053; 81001; 83605; 83735; 84436; 84443; 84484; 85025; 85610; 85730; 87040; 87077; 87086; 87088; 87186; 87635; 93005; 93306; 93880; 94640; 96360; 96361; 97165; 99285; A9270; C9803; G0378; J7030; U0003

== ENCOUNTER 2019-10-10 15:14 | Emergency (ER) | payer MEDICARE, SELFPAY ==
--- NOTE | ~2019-10-10 | XR_ITS ---
EXAMINATION: XR chest 2V DATE: 10/10/2019 16:18 INDICATION: Chest pain TECHNIQUE: frontal and lateral views of the chest were obtained. COMPARISON: Chest radiograph dated 10/04/2019 FINDINGS: Patient is rotated towards the left. Calcified nodule in the posterior right midlung zone consistent with old granulomatous disease. No other airspace opacities, pulmonary edema, pleural effusion or pne umothorax. Heart size and mediastinal silhouette are within normal limits.. Electronic device possibl y implantable cloth brushing and sueding supervisor projecting over the left upper lung zone. There are multiple old bilate ral rib fractures. Atherosclerotic aorta. There is also a chronic fracture deformity at the left scap ular body. There are a few chronic mild compression fractures in the mid to lower thoracic spine. IMPRESSION: 1. No acute cardiopulmonary disease. Reviewed, dictated and finalized at location A.
--- NOTE | ~2019-10-10 | XR_ITS ---
EXAMINATION: XR ribs LT 2V DATE: 10/10/2019 18:25 INDICATION: Left rib pain post fall TECHNIQUE: 3 views of the left ribs were obtained. COMPARISON: Chest radiograph dated 10/04/2019 FINDINGS: There are displaced ununited left second-seventh lateral rib fractures with some callus formation jovanni dent on thoracic spine CT consistent with early chronic fractures. There is also a fracture along the inferior left scapular body which also appears early chronic with some callus formation. Thoracic de xtroscoliosis and kyphosis with moderate spondylosis. The chronic mild T7 compression fracture and ac [place] appearing mild T8 compression fracture evident on thoracic spine CT are not clearly visualized on the current radiographs. Mild left basilar atelectasis. No pleural effusion or pneumothorax. Electro venkatesh device possibly implantable color television console monitor projects over the anterior left chest wall. IMPRESSION: 1. Likely early chronic healing fractures of the lateral left second-seventh ribs and left scapular b [place]. No definitive acute appearing rib fractures identified. 2. Mild left basilar atelectasis. No pneumothorax or pleural effusion. Reviewed, dictated and finalized at location A. IMPRESSION: 1. Likely early chronic healing fractures of the lateral left second-seventh ri bs and left scapular body. No definitive acute appearing rib fractures identifi ed. 2. Mild left basilar atelectasis. No pneumothorax or pleural effusion.
--- NOTE | ~2019-10-10 | CT_ITS ---
EXAMINATION: CT thoracic spine wo con DATE: 10/10/2019 18:13 INDICATION: Back pain post fall TECHNIQUE: Computed tomography (CT) of the thoracic spine was performed without intravenous contrast. Automated exposure control and iterative reconstruction technique were employed. The dose-length pro duct was 862.07 mGy-cm. COMPARISON: Chest radiograph dated 10/04/2019, thoracic spine radiographs dated 07/22/[address] dated 03/28/2012 FINDINGS: Moderate thoracic dextroscoliosis and kyphosis. Chronic mild anterior wedging at T7. Acute appearing T8 compression fracture with 20% anterior and left-sided vertebral body height loss. Remaining verteb ral body heights are normal. Multiple bilateral rib fractures many of which appear chronic as well as a few ununited left-sided rib fractures with varying degrees of callus formation. No acute appearing rib fractures identified. Mild to moderate thoracic spondylosis, moderate cervical spondylosis and s evere upper lumbar spondylosis. There is at least moderate central canal stenosis at L2-L3 resulting from heterotopic ossification at the right side of the central canal which is incompletely visualized . Scattered groundglass opacity in the lungs likely related to subsegmental atelectasis due to expira tory phase of imaging with concave contour to the posterior wall of the trachea. Bilateral calcified pulmonary nodules consistent with old granulomatous disease. No pleural effusion or pneumothorax. Hea rt size is normal. Atherosclerotic coronary artery calcifications. No pericardial effusion. Thoracic aorta is normal in caliber with no acute traumatic aortic injury. Moderate-sized sliding-type hiatal hernia. Numerous calcified gallstones in the dependent aspect of the otherwise normal-appearing gallb ladder. No pathologically enlarged thoracic lymphadenopathy. IMPRESSION: 1. Acute appearing T8 compression fracture with mild vertebral body height loss. 2. Moderate cervical, mild to moderate thoracic and severe upper lumbar spondylosis. 3. Moderate-sized hiatal hernia. 4. Cholelithiasis. Reviewed, dictated and finalized at location A. IMPRESSION: 1. Acute appearing T8 compression fracture with mild vertebral body height loss . 2. Moderate cervical, mild to moderate thoracic and severe upper lumbar spondyl osis. 3. Moderate-sized hiatal hernia. 4. Cholelithiasis.
[2019-10-10 15:19] VITALS: BP 165/86; PULSE 98; RESP 18; TEMP 36.8; O2SAT 96
--- NOTE | 2019-10-10 17:35 | ED.FALL ---
HPI - Fall General Chief Complaint: Fall Stated Complaint: fall Time Seen by Provider: 10/10/19 16:00 Source: patient and family History of Present Illness HPI Narrative: 84 years old white female lives alone, history of frequent, recurrent falls for the last 4 years. Last one was 10 days ago. Today patient did not use her walker, lost her balance and fell complaining of left ribs pain. Patient denies head, neck or back injuries. Patient is awake, alert and oriented x4, but she answers I do not know for every question. Probably because of her son at the bedside. And he does not look happy with her. Patient also denied loss of consciousness. Related Data Home Medications Medication Instructions Recorded Confirmed Adult Multivitamin Gummies 200 mcg PO DAILY 08/01/19 10/04/19 Excedrin Migraine 1 tablet PO Q4-6H PRN 08/01/19 10/04/19 ascorbic acid (vitamin C) [Vitamin 500 mg PO DAILY 08/01/19 10/04/19 C] calcium carbonate [Calcium 500] 500 mg PO QID 08/01/19 10/04/19 cholecalciferol (vitamin D3) 25 mcg PO DAILY 08/01/19 10/04/19 [Vitamin D3] vitamin E 400 unit PO DAILY 08/01/19 10/04/19 docusate sodium 100 mg PO DAILY 10/04/19 10/04/19 gabapentin 800 mg PO BID 10/04/19 10/04/19 hydrocodone-acetaminophen [[place]] 1 tablet PO BID PRN 10/04/19 10/04/19 valsartan 80 mg PO DAILY 10/04/19 10/04/19 Allergies Allergy/AdvReac Type Severity Reaction Status Date / Time CAYETANO Inhibitors Allergy Severe Unknown Verified 10/10/19 15:19 meperidine Allergy Unknown Unknown Verified 10/10/19 15:19 Sulfa (Sulfonamide Allergy Unknown Unknown Verified 10/10/19 15:19 Antibiotics) sulfanilamide Allergy Unknown Unknown Verified 10/10/19 15:19 sulfur dioxide Allergy Unknown Unknown Verified 10/10/19 15:19 Review of Systems Review of Systems: Narrative: CONSTITUTIONAL: Denies fever, chills, or sweats. EYES: Denies visual changes, redness, or discharge. ENT: Denies rhinorrhea, congestion, sore throat, or otalgia. CARDIOVASCULAR: Denies chest pain, palpitations, or edema. RESPIRATORY: Denies cough or dyspnea. GASTROINTESTINAL: Denies abdominal pain, nausea, vomiting, or diarrhea. GENITOURINARY: Denies dysuria or hematuria. SKIN: Denies rash or itching. MUSCULOSKELETAL: Denies back pain, joint pain, or myalgia. NEUROLOGIC: Denies headache, numbness, or weakness. PSYCHIATRIC: Denies anxiety or depression. [facility] Past Medical History Medical History Asthma C2 cervical fracture Type 2 odontoid fracture sustained in fall 05/07/2016, requiring no cervical intervention. 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 Diastolic dysfunction without heart failure On echocardiogram in August 2011. Ejection fraction at that time was 54%. Essential hypertension GERD (gastroesophageal reflux disease) Hyperlipidemia (Unknown) Multiple falls Osteoarthritis Osteoporosis (Unknown) Right rib fracture Scoliosis Uterine cancer Status post total hysterectomy. Surgical History Surgical History History of bilateral knee replacement History of hysterectomy For uterine cancer. Family History Family History Sibling Hypertension Family history of coronary artery disease Mother Hypertension Social History Social History Social History: The patient lives in [place]. She taught nursing for 30 years. Her son, Medardo, is her surrogate decision maker. She is a modified code, medications only. She has a remote smoking history and quit in 1962. No alcohol or drug abuse. Smoking packs per day: 2 Smoking cigarettes per day: 40.0 Years smoked: 3 Smoking pack-years: 6.00 Smoking status: Former smoker Tobacco type: cigarettes Second hand tobacco smoke exposure: Yes Alcohol intake: never Substance use: never Subs
[2019-10-10] MEDS: ONDANSETRON HCL ODT 4 MG TABLET PO (18:28)
[2019-10-10] MEDS: MORPHINE SULFATE 10 MG/ML AMP 4 MG IM (18:28)
== END 2019-10-10 19:46 ==
PROVIDERS: Emergency Provider Emergency Medicine; PCP Internal Medicine
DX: S22.060A Wedge compression fracture of T7-T8 vertebra, initial encounter for closed fracture (principal); I10 Essential (primary) hypertension; K21.9 Gastro-esophageal reflux disease without esophagitis; E78.5 Hyperlipidemia, unspecified; M19.90 Unspecified osteoarthritis, unspecified site; W01.0XXA Fall on same level from slipping, tripping and stumbling without subsequent striking against object, initial encounter
CPT/HCPCS: 71046; 71100; 72128; 96372; 99284; A9270; J2270

== ENCOUNTER 2019-10-19 11:05 | Inpatient (IN) | payer MEDICARE, SELFPAY ==
[2019-10-19] VITALS (9 sets, daily range): BP systolic 70–133; BP diastolic 40–98; PULSE 76–140; RESP 18–20; TEMP 36.3–37; O2SAT 87–96
--- NOTE | ~2019-10-19 | XR_ITS ---
EXAMINATION: XR hip LT 2V w AP pelvis DATE: 10/19/2019 11:57 INDICATION: Left hip pain post fall TECHNIQUE: Anteroposterior view of the pelvis and anteroposterior and frog-leg lateral views of the l eft hip were obtained. COMPARISON: None. FINDINGS: Comminuted fracture of the medial aspect of the left superior and inferior pubic rami with 8mm displa cement. No other fractures identified. Normal alignment at the bilateral hips with mild bilateral ost eoarthritis. Severe lower lumbar spondylosis. IMPRESSION: 1. Mild displacement of comminuted fracture involving the left superior and inferior pubic rami. Reviewed, dictated and finalized at location A. IMPRESSION: 1. Mild displacement of comminuted fracture involving the left superior and inf erior pubic rami.
--- NOTE | ~2019-10-19 | XR_ITS ---
XR chest 1V portable 10/23/2019 10:55 Indication: Dyspnea. Evaluate for aspiration. Procedure: AP portable chest Comparison: Comparison to multiple prior studies sequentially, with oldest reviewed study dated 10/03. Findings: There are left scapular and multiple bilateral rib fractures of varying age. There is dextr oscoliosis of the thoracic spine. Cardiomegaly. There is opacification of the left upper thorax which may relate to callus formation from underlying fractures. There is left basilar atelectasis. No foca l pneumonia, pleural effusion or pneumothorax. Impression: 1: Left basilar atelectasis. 2: Multiple bilateral rib fractures and left scapular fractures of varying age with probable developi ng callus formation causing opacification of the left upper thorax. Reviewed, dictated and finalized at location A. Impression: 1: Left basilar atelectasis. 2: Multiple bilateral rib fractures and left scapular fractures of varying age with probable developing callus formation causing opacification of the left upp er thorax.
--- NOTE | ~2019-10-19 | XR_ITS ---
EXAMINATION: XR chest 1V DATE: 10/19/2019 11:57 INDICATION: Hypoxia TECHNIQUE: frontal view of the chest was obtained. COMPARISON: Chest radiograph dated 10/10/2019 FINDINGS: Small lung volumes likely due in part to thoracic kyphosis. Mild opacities at the left lung base and favor atelectasis over pneumonia. Calcified nodule in the right midlung consistent with old granuloma tous disease. No pleural effusion or pneumothorax. Cardiomediastinal silhouette is within normal limi ts, for AP technique. Multiple bilateral rib fractures, chronic on the right and more recent-appearin g with callus formation on the left. There is also a healing left scapular fracture. Severe thoracolu mbar spondylosis. IMPRESSION: 1. Small lung volumes with left basilar atelectasis versus less likely pneumonia. Reviewed, dictated and finalized at location A. IMPRESSION: 1. Small lung volumes with left basilar atelectasis versus less likely pneumoni a.
--- NOTE | ~2019-10-19 | CT_ITS ---
EXAMINATION: CT brain wo con INDICATION: Confusion and recent fall COMPARISON: 10/04/2019 TECHNIQUE: Standard unenhanced head CT. The dose-length product (DLP) was 605.33 mGy-cm. The mA was a djusted according to patient size. Iterative reconstruction technique was employed. FINDINGS: There is no acute intraparenchymal hemorrhage. No evidence of mass lesion. No evidence of a cute infarction. There is moderate periventricular and subcortical hypodensity probably related to sm all vessel ischemic disease. There is moderate prominence of the sulci and ventricles related to cere bral atrophy. Intracranial calcified cerebral atherosclerosis is noted. There are no extra-axial kapil ections. There is no mass effect or midline shift. Changes in the globes are likely from ocular lens surgery. The visualized sinuses and mastoid air cells are well aerated. IMPRESSION: 1. No acute intracranial abnormality. 2. Age related findings. Reviewed, dictated and finalized at location A.
--- NOTE | 2019-10-19 11:19 | ED.FALL ---
HPI - Fall General Chief Complaint: Fall Stated Complaint: FALL, LEFT HIP PAIN Time Seen by Provider: 10/19/19 11:19 History of Present Illness HPI Narrative: Fall this morning onto her left hip. She remebers the fall and denies dizziness or LOC. She has pain in the left hip. She has had multiple recent falls. BP noted to be low during triage. This is not normal for her. Related Data Home Medications Medication Instructions Recorded Confirmed Adult Multivitamin Gummies 200 mcg PO DAILY 08/01/19 10/19/19 Excedrin Migraine 1 tablet PO Q4-6H PRN 08/01/19 10/19/19 ascorbic acid (vitamin C) [Vitamin 500 mg PO DAILY 08/01/19 10/19/19 C] vitamin E 400 unit PO DAILY 08/01/19 10/19/19 docusate sodium 100 mg PO DAILY 10/04/19 10/19/19 gabapentin 800 mg PO BID 10/04/19 10/19/19 hydrocodone-acetaminophen [[place]] 1 tablet PO BID PRN 10/04/19 10/19/19 valsartan 80 mg PO DAILY 10/04/19 10/19/19 ibuprofen 600 mg PO BID 10/19/19 10/19/19 lovastatin mg 10/19/19 pantoprazole 40 mg PO DAILY 10/19/19 10/19/19 zolpidem [Ambien] 5 mg PO HS 10/19/19 10/19/19 Allergies Allergy/AdvReac Type Severity Reaction Status Date / Time CAYETANO Inhibitors Allergy Severe Unknown Verified 10/10/19 15:19 meperidine Allergy Unknown Unknown Verified 10/10/19 15:19 Sulfa (Sulfonamide Allergy Unknown Unknown Verified 10/10/19 15:19 Antibiotics) sulfanilamide Allergy Unknown Unknown Verified 10/10/19 15:19 sulfur dioxide Allergy Unknown Unknown Verified 10/10/19 15:19 Review of Systems Review of Systems: All systems reviewed & are unremarkable except as noted in HPI and below Constitutional: Constitutional: Denies chills and Denies fever(s) Cardiovascular: Cardiovascular: Denies chest pain Respiratory: Respiratory: Denies dyspnea Gastrointestinal: Gastrointestinal: Denies abdominal pain, Denies diarrhea, Denies nausea and Denies vomiting Genitourinary: Genitourinary: Denies dysuria Musculoskeletal: Musculoskeletal: Denies back pain Neurologic: Denies dizziness, Denies syncope and Denies weakness Hematologic/Lymphatic: Hematologic/Lymphatic: Denies easy bleeding and Denies easy bruising PMF Past Medical History Medical History Asthma C2 cervical fracture Type 2 odontoid fracture sustained in fall 05/07/2016, requiring no cervical intervention. 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 Diastolic dysfunction without heart failure On echocardiogram in August 2011. Ejection fraction at that time was 54%. Essential hypertension GERD (gastroesophageal reflux disease) Hyperlipidemia (Unknown) Multiple falls Osteoarthritis Osteoporosis (Unknown) Right rib fracture Scoliosis Uterine cancer Status post total hysterectomy. Surgical History Surgical History History of bilateral knee replacement History of hysterectomy For uterine cancer. Family History Family History Sibling Hypertension Family history of coronary artery disease Mother Hypertension Social History Social History Social History: The patient lives in [place]. She taught nursing for 30 years. Her son, Medardo, is her surrogate decision maker. She is a modified code, medications only. She has a remote smoking history and quit in 1962. No alcohol or drug abuse. Smoking packs per day: 2 Smoking cigarettes per day: 40.0 Years smoked: 3 Smoking pack-years: 6.00 Smoking status: Former smoker Tobacco type: cigarettes Second hand tobacco smoke exposure: Yes Alcohol intake: never Substance use: never Substance use type: does not use Gender identity (if verbalized by the patient): Female Sexual Orientation (if Verbalized by the Patient): Straight or Heterosexual Spiritual care concerns: Yes Agree to bl
--- NOTE | 2019-10-19 11:29 | ECG_ITS ---
Measurements Intervals [place] Rate: 95 P: 29 SD: 192 QRS: 38 QRSD: 68 T: 0 QT: 361 QTc: 456 Interpretive Statements SINUS RHYTHM LOW QRS VOLTAGE- DIFFUSE LEADS ANTEROSEPTAL INFARCT, AGE INDETERMINATE BORDERLINE ST-T WAVE ABNORMALITY- ANTEROLAT/INF LEADS BASELINE ARTIFACT- I, AVR, V1-V2 ABNORMAL ECG Electronically Signed On 10-19-2019 12:45:21 CDT by Adam Wynn D.O.
[2019-10-19] MEDS: SODIUM CHLORIDE 0.9% IV 1,000 ML 999 ML (11:38)
[2019-10-19 12:13] LABS: Alanine Aminotransferase 22 U/L (4-35); Albumin Level 3.9 g/dL (3.5-5.1); Alkaline Phosphatase 79 U/L (38-126); Aspartate Amino Transferase 37 U/L (14-36); Bilirubin,Total 0.8 mg/dL (0.2-1.3); Blood Urea Nitrogen 21 mg/dL (7-17); CRP 0.9 mg/dL (<1.0); Calcium 8.8 mg/dL (8.4-10.2); Carbon Dioxide 23 mmol/L (22-30); Chloride 103 mmol/L (98-107); Estimated CRCL calculation 22 ml/min; Estimated Glomerular Filt Rate 31; Glucose 112 mg/dL (65-105); Potassium 4.2 mmol/L (3.4-5.0); Sodium 134 mmol/L (137-145)
--- NOTE | 2019-10-19 12:42 | PC.NURSE ---
Attempted to obtain labs but was unsuccessful. Called phlebotomy at this time to attempt blood draw.
[2019-10-19 12:59] LABS: Basophils Percent Auto 0.3 % (0.2-1.2); Eosinophils Percent Auto 0.1 % (0-4.4); Hematocrit 44.2 % (37.0-47.0); Hemoglobin 14.5 g/dL (12.0-15.0); Immature Granulocyte Absolute 0.11 K/mm3 (0.00-0.031); Immature Granulocyte Percent A 0.8 % (0-0.5); Lymphocytes Absolute Auto 0.57 K/mm3 (0.9-3.2); Lymphocytes Percent Auto 4.3 % (18.3-44.2); Mean Corpuscular HGB Conc 32.8 g/dl (32-36); Mean Corpuscular Hemoglobin 30.9 pg (26-34); Mean Corpuscular Volume 94.2 fl (80-100); Monocytes Absolute Auto 0.6 K/mm3 (0.1-0.6); Monocytes Percent Auto 4.2 % (2.6-8.5); Neutrophils Absolute Auto 11.9 K/mm3 (1.3-6.7); Neutrophils Percent Auto 90.3 % (45.5-73.1); Platelet Count Result 206 k/mm3 (150-375); Red Blood Count 4.69 M/mm3 (4.2-5.4); Red Cell Distribution Width 13.1 % (11.5-14.5); White Blood Count 13.2 K/mm3 (4.5-10.0)
[2019-10-19 13:13] LABS: Lactic Acid Reflex 1.8 mmol/L (0.7-2.1)
[2019-10-19 13:19] LABS: Partial Thromboplastin Time 24.7 SECONDS (22.3-36.8); Prothrombin Time 13.3 Seconds (11.1-14.7)
[2019-10-19 13:28] LABS: Add Urine Microscopic? YES; Appearance Urine Cloudy (Clear); Bilirubin Urine Negative (Negative); Color Urine Red (Yellow); Glucose Urine UA Negative (Negative); Ketones Urine Negative (Negative); Leukocyte Esterase Ur Trace LEU/UL (Negative); Nitrate Urine Negative (Negative); Protein Urine 2+ mg/dL (Negative); RBC Urine >75 /hpf (0-2); Specific Grav Ur 1.008 (1.001-1.035); Urobilinogen Urine Negative mg/dL (<2.0)
[2019-10-19 13:30] LABS: Blood Urine 3+ (Negative)
[2019-10-19] MEDS: MORPHINE SULFATE 4 MG/ML INJ 2 MG IV PUSH (17:57)
[2019-10-19] MEDS: LACTATED RINGERS 1,000 ML 125 ML IV CONT (17:59)
[2019-10-19 18:47] LABS: Blood Urea Nitrogen 22 mg/dL (7-17); Calcium 8.3 mg/dL (8.4-10.2); Carbon Dioxide 20 mmol/L (22-30); Chloride 105 mmol/L (98-107); Creatine Kinase 425 U/L (30-135); Estimated CRCL calculation 27 ml/min; Estimated Glomerular Filt Rate 39; Glucose 122 mg/dL (65-105); Potassium 4.7 mmol/L (3.4-5.0); Sodium 132 mmol/L (137-145)
--- NOTE | 2019-10-19 19:08 | ECG_ITS ---
SINUS TACHYCARDIA LOW QRS VOLTAGE IN PRECORDIAL LEADS INFERIOR INFARCT, AGE INDETERMINATE BORDERLINE ST-T WAVE ABNORMALITY- ANT/LAT LEADS BASELINE ARTIFACT- I, II, III, AVR, V6 ABNORMAL ECG Electronically Signed On 10-20-2019 10:18:55 CDT by Adam Wynn D.O. COMPARED TO ECG 10/19/2019 12:17:42 SINUS TACHYCARDIA NOW PRESENT MTDD
--- NOTE | 2019-10-19 20:30 | PM.IMHP ---
H&P: HPI History of Present Illness Chief complaint: Left hip pain after fall. Narrative: Mitra Verde is an 84-year-old female with hypertension, hyperlipidemia, GERD, and chronic pain on hydrocodone who presented to the emergency department for evaluation of left hip pain after a fall. She has a history of multiple falls with injuries including odontoid fracture, multiple rib fractures, and left scapula fracture and she is known to myself as I saw her in consultation in July 2019 after she was admitted for a small traumatic pneumothorax and rib fractures obtained in a fall. More recently she was admitted to the hospital for 2 days earlier this month for evaluation of a syncopal episode. At that time an echocardiogram did show wall motion abnormalities and EKG demonstrated findings of an old inferior MO. She was seen in consultation by Dr. Regulo Correa, who recommended event monitor on discharge an outpatient stress test. She was discharged back to her home, where she lives alone. It is noted that she was seen emergency department on 10/10/2019 for evaluation of back pain after yet another fall and she was found to have an acute appearing T8 compression fracture. At that time, she was offered rehab, SNF, and jail placement however the patient and her son declined all of these options. In any event, the patient tells me that she was ambulating with a walker not long prior to arrival when she lost her balance which caused her to fall onto her left hip. She has pain mainly in the left anterior pelvic region, and really only with movement. She denies other injuries in the fall and tells me that it was purely a mechanical fall. It is noted that her blood pressure was 70s over 40s on EMS and ED arrival, and they have since normalized with IV fluid rehydration. She denies feeling lightheaded and dizzy prior to the fall. I am not certain how accurate her history is, however, as she does occasionally contradict herself. Not long prior to my arrival to the room, I received a call from her nurse with reports of sinus tachycardia on telemetry. When I enter the room, I question the patient about this and she reports ?my heart rate is always high? however looking back from her previous stays that is not an accurate statement. She then mentions left anterior chest heaviness and mild shortness of breath, but she goes on to say that she is always short of breath. She denies palpitations, feelings of racing heart, pleuritic pain, resting shortness of breath, edema, calf pain, and history of venous thromboembolism. Of note, a Morales catheter was placed in the emergency department and she has had gross hematuria since that time. Prior to the insertion, she denied the presence of hematuria and she also states the Morales catheter insertion was not traumatic. Review of Systems Review of Systems: Narrative: Twelve systems were reviewed but the accuracy is somewhat questionable as her answers do change somewhat throughout the interview. She does deny fever, chills, and sweats. No recent cold or flu symptoms. She denies cough. No orthopnea or PND. She reports chronic dyspnea on exertion, which is unchanged. She has not had nausea, vomiting, or diarrhea. No dysuria, hesitancy, or urgency. No change in urine output. She denies focal weakness, paresthesias, and vertigo. Except as documented, all other systems were reviewed and are negative. [facility] Past Medical History Medical History (Updated 10/20/19 @ 00:01 by Soledad Easley PA-C) Asthma C2 cervical fracture Type 2 odontoid fracture sustained in fall 05/07/2016, requiring no cervical intervention. 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 Combined systolic and diastolic cardiac dysfunction Echocardiogram on 10/04/2019 showed a normal LV chamber, mildly reduced LV systolic function with an ejection fraction estimated at 50 to 55%, grade 1 diastolic dysfunction, hypokinesis of the bas
[2019-10-19 20:47] LABS: Troponin I 0.291 ng/mL (0.000-0.034)
--- NOTE | 2019-10-19 21:12 | PC.NURSE ---
spoke with family about transfer to IMU and plan of care r/t lab test, iv fluids, and cardiac consult.
--- NOTE | 2019-10-19 22:52 | PC.NURSE ---
spoke with dr pillai, states he will hold off on giving any beta blockers or nitro at this time in regards to patients b/p. states he will let hospitalist manage pain at this time.
[2019-10-19 23:37] LABS: Creatine Kinase 457 U/L (30-135)
[2019-10-19 23:59] LABS: Troponin I 0.312 ng/mL (0.000-0.034)
[2019-10-20] VITALS (15 sets, daily range): BP systolic 116–138; BP diastolic 70–91; PULSE 105–151; RESP 16–20; TEMP 36.1–36.9; O2SAT 89–97
[2019-10-20] MEDS: MORPHINE SULFATE 4 MG/ML INJ 2 MG IV PUSH (00:06)
[2019-10-20 02:59] LABS: Mean Corpuscular HGB Conc 34.2 g/dl (32-36); Mean Corpuscular Volume 90.5 fl (80-100); Mean Platelet Volume 10.3 fl (7.4-10.4); Platelet Count Result 191 k/mm3 (150-375); White Blood Count 9.9 K/mm3 (4.5-10.0)
[2019-10-20 03:22] LABS: D Dimer 13.63 ug/mL (<0.48)
[2019-10-20 03:24] LABS: Blood Urea Nitrogen 21 mg/dL (7-17); Calcium 8.4 mg/dL (8.4-10.2); Carbon Dioxide 22 mmol/L (22-30); Chloride 103 mmol/L (98-107); Estimated CRCL calculation 43 ml/min; Estimated Glomerular Filt Rate > 60; Glucose 121 mg/dL (65-105); Potassium 4.3 mmol/L (3.4-5.0); Sodium 133 mmol/L (137-145)
[2019-10-20 03:34] LABS: NT Pro B Type Natriuretic Pept 3380 PG/ML (5-100)
--- NOTE | 2019-10-20 03:59 | PC.NURSE ---
GAVE REPORT TO NAINA JOSEPH ALL QUESTIONS ANSWERED. PATIENT ASSIGNED TO ROOM 213.
--- NOTE | 2019-10-20 04:02 | PC.NURSE ---
2240 10/19/19 PATIENT TRANSFERRED TO [facility] WITH ALL BELONGINGS.
--- NOTE | 2019-10-20 04:17 | PC.NURSE ---
2044 RECEIVED CRITICAL TEST RESULT FOR TROP, 0.291, CALLED ALEXANDER BALLESTEROS AT 2049, ORDERS RECEIVED AND CARRIED OUT.
[2019-10-20] MEDS: DOCUSATE SODIUM 100 MG CAPSULE PO (09:33)
[2019-10-20] MEDS: FLUTICASONE PROPIONATE 0.05% NA SPR 16 GM BTL (*BKC) 1 SPRAY NASAL (09:33)
[2019-10-20] MEDS: MONTELUKAST SODIUM 10 MG TABLET PO (09:34)
[2019-10-20] MEDS: PANTOPRAZOLE 40 MG TABLET PO (09:34)
[2019-10-20] MEDS: LOVASTATIN 20 MG TABLET 40 MG PO (09:34)
[2019-10-20] MEDS: GABAPENTIN 400 MG CAPSULE 800 MG PO ×2 (09:34→20:34)
[2019-10-20] MEDS: polyethylene glycoL 3350 17 GM POWD.PACK PO (09:34)
[2019-10-20] MEDS: MULTIVITS W-FE,MIN CHEWABLE TABLET 1 TABLET PO (09:34)
--- NOTE | 2019-10-20 10:00 | PM.CNCAR ---
Assessment and Plan Assessment and plan (1) Fall from ground level: Code(s): W18.30XA - Fall on same level, unspecified, initial encounter Status: Acute Assessment and Plan: currently wearing a monitor at home. I have reviewed there rhythm strip from that monitor and it showed occasional PVCs. one run of VT consistent of 3 beats. unlikely this to cause falling down. recent stress test shows fixed defect but no active ischemia with normal ejection fraction. with echocardiogram shows ejection fraction 55%, basal and mid inferior wall hypokinesis. patient denies dizziness, syncope. will follow-up as needed. (2) Fracture of ramus of left pubis: Code(s): S32.592A - Other specified fracture of left pubis, initial encounter for closed fracture Status: Acute (3) Acute kidney injury: Code(s): N17.9 - Acute kidney failure, unspecified Status: Acute Assessment and Plan: resolved with IV hydration History of Present Illness History of Present Illness Consult date/time: Date of sdedwwm57/26/20 10:00 this is a 84-year-old female past medical history of recent syncope October 06, 2019 and at that time the EKG showed old inferior NJ on the EKG unchanged from 2012, normal ejection fraction on echocardiogram with no wall motion abnormalities. At that time telemetry was unremarkable. at that time also had echocardiogram that shows ejection fraction 55%, basal and mid inferior wall hypokinesis, also past history of hypertension, hyperlipidemia, C2 cervical fracture, scoliosis, right hip fracture, uterine cancer with total hysterectomy, multiple falls. she is wearing a heart monitor that was placed on her several days ago at our office. She states she was at home and when she backed up she tripped on something and fell down. Denies dizziness, syncope, chest pain, shortness of breath, orthopnea, , cough, fever, chills, lower limb edema. She admits to severe pain in the left hip. She admits to severe pain in the left hip last stress test October 17, 2019 shows small basal inferoseptum, mid inferoseptal segment fixed defect with no ischemia. Ejection fraction 72%. White cell count 13 k, D-dimer elevated at 13 , serum sodium 132, serum creatinine on admission 1.3 and today 0.8, troponins 0.29, 0.312, 0.28, COVID negative, BNP 3000, hip x-ray shows fracture of inferior and superior rami, chest x-ray shows atelectasis left lung base. EKG interpreted myself shows sinus tachycardia ,iinferior Q-waves, poor R-wave progression , low voltage precordial leads. Requesting physician: Soledad Easley PA-C Consult reason: atrial fibrillation Reason For Visit: Left hip pain after fall. Review of Systems Constitutional: Constitutional: Denies chills, Denies fever(s) and Denies poor appetite Eyes: Eyes: Denies eye discharge, Denies loss of vision, Denies eye pain and Denies photophobia ENT: Denies dizziness, Denies epistaxis, Denies nasal congestion and Denies sore throat Cardiovascular: Cardiovascular: Denies chest pain, Denies syncope, Denies pedal edema, Denies leg edema, Denies palpitations, Denies dyspnea, Denies dyspnea on exertion and Denies orthopnea Respiratory: Respiratory: Denies cough, Denies dyspnea, Denies dyspnea on exertion and Denies wheezing Gastrointestinal: Gastrointestinal: Denies abdominal pain, Denies diarrhea, Denies nausea and Denies vomiting Genitourinary: Genitourinary: Denies hematuria, Denies genital lesions and Denies dysuria Musculoskeletal: Musculoskeletal: Reports back pain, Reports arthralgias, Denies joint swelling and Denies numbness Integumentary/Breasts: Skin/Breast: Denies pruritus and Denies rash Neurologic: Denies dizziness, Denies syncope, Denies loss of vision and Denies numbness Psychiatric: Psychiatric: Denies
--- NOTE | 2019-10-20 13:22 | CONS_ITS ---
DATE OF CONSULTATION: 10/20/2019 HISTORY OF PRESENT ILLNESS: This is an 84-year-old female who fell recently, she has had multiple falls as well in the past and she fell on her left side and she complained of hip pain. She was admitted to the hospital and was diagnosed with a left inferior and superior pubic ramus fracture and she had no other complaints of pain in her extremities. She denies any back pain, any neck pain, any right lower extremity pain, or any upper extremity pain. PAST MEDICAL HISTORY: Odontoid fracture, hypertension, GERD, hyperlipidemia, scapular fracture, osteoarthritis, osteoporosis, rib fractures, scoliosis, and uterine cancer. SURGICAL HISTORY: Total hysterectomy and bilateral knee replacement. FAMILY HISTORY: Hypertension and coronary artery disease. SOCIAL HISTORY: She lives in her own home. She is retired nurse. She is not a smoker. She does not take any alcohol or any other substance abuse. REVIEW OF SYSTEMS: Denies any headache, any shortness of breath, any chest pain, any nausea, vomiting, diarrhea. She complains of left hip pain. MEDICATIONS: 1. Multivitamins. 2. Excedrin. 3. Vitamin C. 4. Vitamin E. 5. Polyethylene glycol. 6. Fluticasone. 7. Lovastatin. 8. Montelukast. 9. Gabapentin. 10. [place]. 11. Valsartan. 12. Ibuprofen. 13. Pantoprazole. 14. Ambien. ALLERGIES: CAYETANO INHIBITORS, MEPERIDINE, SULFA. PHYSICAL EXAMINATION: The left hip was examined first. She has minimal discomfort with passive and active range of motion of her hip. She has some mild tenderness in the groin. She has no tenderness along the thigh down to the knee. She has no thigh masses. The knee has a well-healed scar. She has a stable exam. She has no effusion to the knee. Tib-fib, foot and ankle are nontender. She dorsi and plantar flexes the left foot with 5/5 strength. Otherwise, neurovascularly intact. The right hip was examined. She has no pain with passive and active range of the right hip. She has no thigh tenderness and no masses. The knee has a well-healed scar. She has no instability of the knee. The tib-fib foot and ankle are nontender and no sign of trauma. The heel dorsi and plantar flex of the right foot with 5/5 strength and she is otherwise neurovascularly intact. Upper extremity examination shows she elevates both upper extremities. She has no tenderness in the shoulders, arms, elbows, forearms, wrists, and hand bilaterally. Neck is nontender. T-spine and L-spine are nontender. Sacroiliac joint is nontender. Sacrum, coccyx nontender. IMAGING DATA: X-rays show left pelvis with mildly nondisplaced superior pubic ramus fracture and comminuted inferior pubic ramus fracture. RECOMMENDATION: At this point for weightbearing as tolerated. Generally, these fractures do not have any problems with healing. They will take about 6 weeks for her completely to be mostly pain-free, but she was certainly improved on a weekly basis. She can follow up in my office in 2 months' time for re-evaluation or if it is more convenient depending on where her location is if she is in a [facility] facility. X-rays may be taken, referred to the office for evaluation if that is needed. MONTEZ LITTLE M.D. TRACER BULLET SECTION SUPERVISOR TRACER BULLET SECTION SUPERVISOR D Irasema MT: Melissa
--- NOTE | 2019-10-20 14:52 | PM.IMPN ---
Progress Note: A&P Assessment and Plan (1) Fall from ground level: Code(s): W18.30XA - Fall on same level, unspecified, initial encounter Status: Acute Assessment and Plan: She has a history of recurrent falls with several injuries in the past to include odontoid fracture, rib fractures, and scapular fracture. Today she sustained superior and inferior left pubic rami fractures. Fall precautions will be initiated and will once again consult PT/OT. Pain control (2) Fracture of ramus of left pubis: Code(s): S32.592A - Other specified fracture of left pubis, initial encounter for closed fracture Status: Acute Assessment and Plan: Imaging shows mild displacement of a comminuted fracture involving the left superior and inferior pelvic rami. Analgesics available as needed. orthopedic consult awaiting (3) Chest pain: Code(s): R07.9 - Chest pain, unspecified Status: Acute Assessment and Plan: Patient was complaining of some vague chest pain after I brought attention to the fact that she was tachycardic. EKG shows old Q-waves in the inferior leads Awaiting interogation of monitor (4) Gross hematuria: Code(s): R31.0 - Gross hematuria Status: Resolved Assessment and Plan: Morales catheter is slightly dark continue to monitor (5) Acute kidney injury: Code(s): N17.9 - Acute kidney failure, unspecified Status: Acute Assessment and Plan: Continue to monitor kidney function (6) Essential hypertension: Code(s): I10 - Essential (primary) hypertension Status: Acute Assessment and Plan: Continue to monitor BP (7) Asthma: Qualifiers: Asthma severity: mild Asthma persistence: intermittent Asthma complication type: uncomplicated Qualified Code(s): J45.20 - Mild intermittent asthma, uncomplicated Code(s): J45.909 - Unspecified asthma, uncomplicated Status: Chronic Assessment and Plan: No acute issues; continue maintenance inhalers. Subjective Date/time seen: 10/20/19 14:52 Interval history: Mehreen is an 84-year-old female with hypertension, hyperlipidemia, GERD, and chronic pain on hydrocodone who presented to the emergency department for evaluation of left hip pain after a fall. History of previous falls and syncopal event. Pt has a monitor in situ Poor historial elderly some pain Review of Systems Review of Systems: ROS unobtainable: Yes unobtainable due to medical condition Exam Narrative: Exam Narrative: General: Elderly mildly confused lady. HEENT: SASHA Neck: Supple. Respiratory: Lungs are clear to auscultation bilaterally. Cardiovascular: Regular rate and rhythm with S1-S2. Gastrointestinal: Abdomen is soft, nontender, and nondistended with positive bowel sounds. Genitourinary: Morales catheter Skin: Warm, dry, and slightly pale. No rash or lesions on limited exam. Extremities: No cyanosis, clubbing, or edema. Musculoskeletal: Tender to palpation over left hip Neurological: Alert. Cranial nerves 2-12 are grossly intact. Psychiatric: Poor historian Objective Data Vital Signs Vital Signs: Vital Signs - 24 hr 10/19/19 18:05 10/19/19 20:00 10/19/19 21:10 Temperature 36.9 C 37.0 C Pulse Rate 102 H 138 H 140 H Respiratory Rate 18 18 Blood Pressure 126/79 108/77 Pulse Oximetry 92 96 10/19/19 22:46 10/20/19 00:00 10/20/19 02:00 Temperature 36.3 C L 36.4 C L Pulse Rate 139 H 138 H 118 H Respiratory Rate 18 16 Blood Pressure 133/74 116/70 Pulse Oximetry 91 90
--- NOTE | 2019-10-20 18:58 | PC.NURSE ---
[facility] due to increased confusion. Patient encouraged to eat, continues to refuse meals.
[2019-10-21] VITALS (10 sets, daily range): BP systolic 127–135; BP diastolic 70–85; PULSE 97–111; RESP 20–24; TEMP 36–36.3; O2SAT 82–96; BMI 10.0
[2019-10-21 08:11] LABS: Hematocrit 36.6 % (37.0-47.0); Hemoglobin 12.5 g/dL (12.0-15.0); Mean Corpuscular HGB Conc 34.2 g/dl (32-36); Mean Corpuscular Hemoglobin 30.6 pg (26-34); Mean Corpuscular Volume 89.5 fl (80-100); Mean Platelet Volume 10.9 fl (7.4-10.4); Platelet Count Result 171 k/mm3 (150-375); Red Blood Count 4.09 M/mm3 (4.2-5.4); Red Cell Distribution Width 13.1 % (11.5-14.5); White Blood Count 11.6 K/mm3 (4.5-10.0)
[2019-10-21 08:25] LABS: Blood Urea Nitrogen 18 mg/dL (7-17); Calcium 8.2 mg/dL (8.4-10.2); Carbon Dioxide 21 mmol/L (22-30); Chloride 103 mmol/L (98-107); Estimated CRCL calculation 56 ml/min; Estimated Glomerular Filt Rate > 60; Glucose 120 mg/dL (65-105); Potassium 4.1 mmol/L (3.4-5.0); Sodium 131 mmol/L (137-145)
[2019-10-21] MEDS: GABAPENTIN 400 MG CAPSULE 800 MG PO ×2 (09:49→20:44)
[2019-10-21] MEDS: FLUTICASONE PROPIONATE 0.05% NA SPR 16 GM BTL (*BKC) 1 SPRAY NASAL (09:49)
[2019-10-21] MEDS: MULTIVITS W-FE,MIN CHEWABLE TABLET 1 TABLET PO (09:51)
[2019-10-21] MEDS: PANTOPRAZOLE 40 MG TABLET PO (09:53)
[2019-10-21] MEDS: LOVASTATIN 20 MG TABLET 40 MG PO (09:53)
[2019-10-21] MEDS: MONTELUKAST SODIUM 10 MG TABLET PO (09:54)
--- NOTE | 2019-10-21 09:54 | PC.NURSE ---
Morning dose of Docusate Sodium not administered related to patient having liquid stools at this time.
--- NOTE | 2019-10-21 10:33 | PM.PNCARD ---
Progress Note: A&P Assessment and Plan (1) Falls: Code(s): W19.XXXA - Unspecified fall, initial encounter Status: Acute Assessment and Plan: Mechanical falls, with a pelvic fracture. (2) History of syncope: Code(s): Z87.898 - Personal history of other specified conditions Status: Acute Assessment and Plan: History of syncope, but this episode was simply a fall. nematologist shows only sinus tach with some PVCs. Are monitor did not show any arrhythmias that might contribute to her for falls. (3) Sinus tachycardia: Code(s): R00.0 - Tachycardia, unspecified Status: Acute Assessment and Plan: Has a sinus tachycardia for unclear reasons. Not anemic or febrile. (4) Elevated troponin: Code(s): R79.89 - Other specified abnormal findings of blood chemistry Status: Acute Assessment and Plan: Elevated troponins, secondary to generalized physiologic stress. Has a mildly elevated BNP as well, but does not appear to be in CHF. She was actually hypovolemic on admission with acute kidney injury which has improved. Additional Plan No active cardiac issues. Will sign off. Please call if we can be of further help. Subjective Date/time seen: 10/21/19 10:33 Follow-up for syncope/fall. Wearing a monitor our office placed for her history of syncope. Recent echocardiogram that shows ejection fraction 55%, basal and mid inferior wall hypokinesis, Date of service: 10/21/2019 Patient seems confused today, complains of hip pain. Denies any chest discomfort. Telemetry shows sinus rhythm/sinus tachycardia with PVCs and ventricular couplets. One triplet. Review of Systems Cardiovascular: Cardiovascular: Denies chest pain Respiratory: Respiratory: Denies dyspnea Gastrointestinal: Gastrointestinal: Denies abdominal pain Genitourinary: Genitourinary: Denies flank pain Musculoskeletal: Musculoskeletal: Reports arthralgias (Complains of hip pain) Integumentary/Breasts: Skin/Breast: Reports system reviewed and no additional complaints, except as docu Neurologic: Reports confusion Exam Const: General: no acute distress and uncomfortable (Patient appears confused and restless) HENMT: Mouth: Yes moist mucous membranes Eyes: EOM: EOMs intact bilaterally Neck: Neck: supple Resp: Effort & Inspection: normal respiratory effort Auscultation: rales (Few scattered rales in the bases (chest x-ray showed atelectasis)) Cardio: Rate: regular rate Rhythm: regular rhythm Heart sounds: no murmurs GI: Inspection: non-distended Auscultation: normal bowel sounds Other: Soft and nontender Skin: General skin exam: normal color Neuro: Cognition (Neuro): abnormal cognition Motor exam (neuro): Normal motor muscle tone present throughout Other: Patient appears either confused or hard of hearing, or both. Answers yes or no questions, does not elaborate and is not conversant. Is not oriented to place, date or situation. Extrem: Right lower extremity: no edema Left lower extremity: no edema Other: Feet warm Psych: Affect: Anxious affect present Objective Data Vital Signs Vital Signs: Vital Signs - 24 hr 10/20/19 12:00 10/20/19 14:00 10/20/19 16:00 Temperature 97.4 F L 97.2 F L Pulse Rate 112 H 112 H 111 H Respiratory Rate 20 18 Blood Pressure 125/77 121/79 Pulse Oximetry 89 L 92 10/20/19 18:00 10/20/19 19:46 10/20/19 20:00 Temperature 97.1 F L Pulse Rate 114 H 142 H 151 H Respiratory Rate 20 Blood Pressure 138/91 H Pulse Oximetry 97 97 10/20/19 21:28 10/20/19 22:00 10/20/19 23:43 Temperature 97 F L Pulse Rate 107 H 109 H 105 H Respiratory Rate 20 Blood Pressure 119/77 Pulse Oximetry 96 10/21/19 00:00 10/21/19 01:07 10/21/19 02:00 Temperature Pulse Rate 107 H 97 Respiratory Rate Blood Pressure Pulse Oximetry 96 10/21/19 04:00 10/21/19 06:00 10/21/19 08:00 Temperature 96.8 F L 97.4 F L Pul
--- NOTE | 2019-10-21 13:37 | PM.IMPN ---
Progress Note: A&P Assessment and Plan (1) Fall from ground level: Code(s): W18.30XA - Fall on same level, unspecified, initial encounter Status: Acute Assessment and Plan: She has a history of recurrent falls with several injuries in the past to include odontoid fracture, rib fractures, and scapular fracture. Today she sustained superior and inferior left pubic rami fractures. Fall precautions will be initiated and will once again consult PT/OT. Pain control dischrage to rehab bed soon ? wednesday (2) Fracture of ramus of left pubis: Code(s): S32.592A - Other specified fracture of left pubis, initial encounter for closed fracture Status: Acute Assessment and Plan: Imaging shows mild displacement of a comminuted fracture involving the left superior and inferior pelvic rami. Analgesics available as needed. orthopedic recommendations- weight bearing as tolerated and 6 weeks for recovery. (3) Chest pain: Code(s): R07.9 - Chest pain, unspecified Status: Acute Assessment and Plan: Patient was complaining of some vague chest pain after I brought attention to the fact that she was tachycardic. EKG shows old Q-waves in the inferior leads monitor is ok, cardiology have signed off (4) Gross hematuria: Code(s): R31.0 - Gross hematuria Status: Resolved Assessment and Plan: Morales catheter is slightly dark continue to monitor (5) Acute kidney injury: Code(s): N17.9 - Acute kidney failure, unspecified Status: Acute Assessment and Plan: Continue to monitor kidney function (6) Essential hypertension: Code(s): I10 - Essential (primary) hypertension Status: Acute Assessment and Plan: Continue to monitor BP (7) Asthma: Qualifiers: Asthma severity: mild Asthma persistence: intermittent Asthma complication type: uncomplicated Qualified Code(s): J45.20 - Mild intermittent asthma, uncomplicated Code(s): J45.909 - Unspecified asthma, uncomplicated Status: Chronic Assessment and Plan: No acute issues; continue maintenance inhalers. (8) UTI (urinary tract infection): Code(s): N39.0 - Urinary tract infection, site not specified Status: Acute Assessment and Plan: Pt is on iv rocephin, ua is positive uc pending infection ? contributing to confusion Subjective Date/time seen: 10/21/19 13:37 Interval history: Mehreen is an 84-year-old female with hypertension, hyperlipidemia, GERD, and chronic pain on hydrocodone who presented to the emergency department for evaluation of left hip pain after a fall. History of previous falls and syncopal event. Pt has a monitor in situ Poor historial elderly some pain Pt is very confused today playing with feces, not understanding any conversation. pleasantly confused. Son very concerned pt has uti also multiple falls with fracture, monitor checks out to be ok, orthopedic recommendations, weight bearing as tolerated and 6 weeks for recovery. Review of Systems Review of Systems: ROS unobtainable: Yes unobtainable due to medical condition Exam Narrative: Exam Narrative: General: Elderly very confused but pleasant Respiratory: Lungs are clear to auscultation bilaterally. Cardiovascular: Regular rate and rhythm with S1-S2. Gastrointestinal: Abdomen is soft, nontender, and nondistended with positive bowel sounds. Genitourinary: Morales catheter Skin: Warm, dry, and slightly pale. No rash or lesions on limited exam. Extremities: No cyanosis, clubbing, or e
--- NOTE | 2019-10-21 17:32 | PC.NURSE ---
This patient, Mitra Verde, was transferred to [facility] on 10/21/19 at 1712. Personal belongings sent with patient. Report given to Bianca JOSEPH. Appropriate documentation sent with patient.
--- NOTE | 2019-10-21 18:01 | PC.NURSE ---
This patient, Mitra Verde, was received from IMU on 10/21/19 at 1720. Personal belongings list checked and signed. Patient/family oriented to unit policies and routines
[2019-10-21] MEDS: ACETAMINOPHEN 325 MG TABLET 650 MG PO (18:39)
[2019-10-21] MEDS: MORPHINE SULFATE 4 MG/ML INJ 2 MG IV PUSH (23:41)
[2019-10-22 05:38] VITALS: BP 139/84; PULSE 103; RESP 16; TEMP 36.6; O2SAT 95
[2019-10-22 05:41] LABS: Hematocrit 35.2 % (37.0-47.0); Hemoglobin 12.1 g/dL (12.0-15.0); Mean Corpuscular HGB Conc 34.4 g/dl (32-36); Mean Corpuscular Hemoglobin 31.1 pg (26-34); Mean Corpuscular Volume 90.5 fl (80-100); Mean Platelet Volume 11.3 fl (7.4-10.4); Platelet Count Result 168 k/mm3 (150-375); Red Blood Count 3.89 M/mm3 (4.2-5.4); White Blood Count 11.2 K/mm3 (4.5-10.0)
[2019-10-22 05:57] LABS: Blood Urea Nitrogen 16 mg/dL (7-17); Carbon Dioxide 25 mmol/L (22-30); Chloride 104 mmol/L (98-107); Estimated CRCL calculation 53 ml/min; Estimated Glomerular Filt Rate > 60; Glucose 116 mg/dL (65-105); Potassium 3.5 mmol/L (3.4-5.0); Sodium 131 mmol/L (137-145)
[2019-10-22 07:29] VITALS: PULSE 103; RESP 16; O2SAT 95
--- NOTE | 2019-10-22 09:10 | PC.NURSE ---
Spoke with Dr. Lanza about patient s external heart monitor that is beeping now. She voiced that the battery in it should be changed weekly. Have family bring it in. She voiced that the family and patient is instructed about how to keep it operating correctly so the family should be able to tell how to change the battery or bring in pamplet on how to change the battery and care of the external monitor. Dr. Lanza voiced the patient was on telemetry and has no need to be on it at this time.
[2019-10-22] MEDS: DOCUSATE SODIUM 100 MG CAPSULE PO (10:42)
[2019-10-22] MEDS: FLUTICASONE PROPIONATE 0.05% NA SPR 16 GM BTL (*BKC) 1 SPRAY NASAL (10:42)
[2019-10-22] MEDS: MULTIVITS W-FE,MIN CHEWABLE TABLET 1 TABLET PO (10:43)
[2019-10-22] MEDS: polyethylene glycoL 3350 17 GM POWD.PACK PO (10:43)
[2019-10-22] MEDS: PANTOPRAZOLE 40 MG TABLET PO (10:43)
[2019-10-22] MEDS: LOVASTATIN 20 MG TABLET 40 MG PO (10:44)
[2019-10-22] MEDS: GABAPENTIN 400 MG CAPSULE 800 MG PO ×2 (10:44→22:06)
[2019-10-22] MEDS: MONTELUKAST SODIUM 10 MG TABLET PO (10:45)
--- NOTE | 2019-10-22 11:15 | PC.NURSE ---
0945 spoke with patient s son, Medardo Verde, about bringing patient Items for external heart monitor due to it is beeping at this time. He voiced that he would bring the pamplet and needed items for the monitor to lead care manager properly at sometime today.
--- NOTE | 2019-10-22 12:28 | PM.IMPN ---
Progress Note: A&P Assessment and Plan (1) Fall from ground level: Code(s): W18.30XA - Fall on same level, unspecified, initial encounter Status: Acute Assessment and Plan: She has a history of recurrent falls with several injuries in the past to include odontoid fracture, rib fractures, and scapular fracture. She sustained a superior and inferior left pubic rami fractures. Fall precautions will be initiated and will once again consult PT/OT. Pain control: We will stop the moprhine since she looks comfortable and continue with norco PRN. The pain medications might be contributing to her confusion. (2) Fracture of ramus of left pubis: Code(s): S32.592A - Other specified fracture of left pubis, initial encounter for closed fracture Status: Acute Assessment and Plan: Imaging shows mild displacement of a comminuted fracture involving the left superior and inferior pelvic rami. Analgesics available as needed. orthopedic consult (3) Chest pain: Code(s): R07.9 - Chest pain, unspecified Status: Acute Assessment and Plan: Patient was complaining of some vague chest pain after I brought attention to the fact that she was tachycardic. EKG shows old Q-waves in the inferior leads No chest pain today (4) Gross hematuria: Code(s): R31.0 - Gross hematuria Status: Resolved Assessment and Plan: Morales catheter in place (5) Acute kidney injury: Code(s): N17.9 - Acute kidney failure, unspecified Status: Acute Assessment and Plan: Resolved (6) Essential hypertension: Code(s): I10 - Essential (primary) hypertension Status: Acute Assessment and Plan: Continue to monitor BP (7) Asthma: Qualifiers: Asthma severity: mild Asthma persistence: intermittent Asthma complication type: uncomplicated Qualified Code(s): J45.20 - Mild intermittent asthma, uncomplicated Code(s): J45.909 - Unspecified asthma, uncomplicated Status: Chronic Assessment and Plan: No acute issues; continue maintenance inhalers. (8) UTI (urinary tract infection): Code(s): N39.0 - Urinary tract infection, site not specified Status: Acute Assessment and Plan: Urine cultures not growing any specific bacteria, d/c antibiotics. Subjective Date/time seen: Not in distress, answering basic questions however she cannot elaborate much, but definitely not in distress. Denies pain. 10/22/19 12:28 Review of Systems Review of Systems: All systems reviewed & are unremarkable except as noted in HPI and below Exam Const: General: comfortable and no acute distress Eyes: General: appearance normal, both eyes and all related structures Neck: Neck: no JVD Resp: Auscultation: clear to auscultation bilaterally Cardio: Rate: regular rate Rhythm: regular rhythm Other: Slightly tachycardic. GI: Auscultation: normal bowel sounds Neuro: Sensory Exam: normal sensation Extrem: Other: Seems confused but not in distress, no focal deficits on exam. Objective Data Vital Signs Vital Signs: Vital Signs - 24 hr 10/21/19 22:39 10/22/19 05:38 10/22/19 07:29 Temperature 96.8 F L 97.8 F Pulse Rate 100 103 H 103 H Respiratory Rate 22 H 16 16 Blood Pressure 132/70 139/84 Pulse Oximetry 94 95 95 Intake/Output Intake/Output: Intake & Output 10/19/19 10/20/19 10/21/19 10/22/19 23:59 23:59 23:59 23:59 Intake Total 1050 1450 410 100 Output Total 850 800 450 Balance 1050 600 -390 -350 Meds/Results Medications: Active Medicatio
[2019-10-22 16:00] VITALS: BP 134/84; PULSE 104; RESP 20; TEMP 36.1; O2SAT 94
--- NOTE | 2019-10-22 17:53 | PC.NURSE ---
1510 Patient s son brought in patient s Mobile Cardiac Output Device box that has everything in it for her external heart monitor. The device patch was changed by nursing central supply supervisor and the device stopped beeping regarding a low battery.
[2019-10-22] MEDS: MELATONIN 3 MG TABLET PO (22:07)
[2019-10-22 23:51] VITALS: BP 119/51; PULSE 120; RESP 20; TEMP 35.2; O2SAT 92
[2019-10-23 05:33] LABS: Basophils Absolute Auto 0.1 K/mm3 (0.0-0.1); Basophils Percent Auto 0.5 % (0.2-1.2); Eosinophils Absolute Auto 0.4 K/mm3 (0-0.3); Eosinophils Percent Auto 3.7 % (0-4.4); Hematocrit 34.6 % (37.0-47.0); Hemoglobin 11.9 g/dL (12.0-15.0); Immature Granulocyte Absolute 0.14 K/mm3 (0.00-0.031); Immature Granulocyte Percent A 1.5 % (0-0.5); Lymphocytes Absolute Auto 1.53 K/mm3 (0.9-3.2); Lymphocytes Percent Auto 16.2 % (18.3-44.2); Mean Corpuscular HGB Conc 34.4 g/dl (32-36); Mean Corpuscular Hemoglobin 31.2 pg (26-34); Mean Corpuscular Volume 90.8 fl (80-100); Mean Platelet Volume 10.7 fl (7.4-10.4); Monocytes Absolute Auto 0.8 K/mm3 (0.1-0.6); Neutrophils Absolute Auto 6.6 K/mm3 (1.3-6.7); Neutrophils Percent Auto 70.1 % (45.5-73.1); Platelet Count Result 188 k/mm3 (150-375); Red Blood Count 3.81 M/mm3 (4.2-5.4); Red Cell Distribution Width 13.2 % (11.5-14.5); White Blood Count 9.5 K/mm3 (4.5-10.0)
[2019-10-23 05:44] LABS: Blood Urea Nitrogen 18 mg/dL (7-17); Calcium 7.9 mg/dL (8.4-10.2); Carbon Dioxide 23 mmol/L (22-30); Chloride 105 mmol/L (98-107); Estimated CRCL calculation 53 ml/min; Estimated Glomerular Filt Rate > 60; Glucose 112 mg/dL (65-105); Potassium 3.3 mmol/L (3.4-5.0); Sodium 133 mmol/L (137-145)
--- NOTE | 2019-10-23 09:02 | P.PNIM_ITS ---
Progress Note: A&P Assessment and Plan (1) Fall from ground level: Code(s): W18.30XA - Fall on same level, unspecified, initial encounter Status: Acute Assessment and Plan: * She has a history of recurrent falls with several injuries in the past to include odontoid fracture, rib fractures, and scapular fracture. * She sustained a superior and inferior left pubic rami fractures. * Fall precautions will be initiated and will once again consult PT/OT. Pain control: We will stop the moprhine since she looks comfortable and continue with norco PRN. The pain medications might be contributing to her confusion. (2) Fracture of ramus of left pubis: Code(s): S32.592A - Other specified fracture of left pubis, initial encounter for closed fracture Status: Acute Assessment and Plan: * Imaging shows mild displacement of a comminuted fracture involving the left superior and inferior pelvic rami. * Analgesics available as needed. * orthopedic consult (3) Delirium: Code(s): R41.0 - Disorientation, unspecified Status: Acute Assessment and Plan: * Likely multifactorial due to pain medications, immobility, recent fracture. * No underlying infection, UA negative. * CT of the head was negative for an acute process. * We will get ammonia , vitamin B12 and folate levels. * Consult neurology for further assessment. (4) Tachycardia: Code(s): R00.0 - Tachycardia, unspecified Status: Acute Assessment and Plan: * Unclear etiology, she is asymptomatic otherwise. * TSH checked earlier this month wnl. * Underlying pain might be contributing to the tachycardia. * Cardiology is following. (5) Chest pain: Code(s): R07.9 - Chest pain, unspecified Status: Acute Assessment and Plan: * Patient was complaining of some vague chest pain after I brought attention to the fact that she was tachycardic. * EKG shows old Q-waves in the inferior leads * No chest pain today (6) Gross hematuria: Code(s): R31.0 - Gross hematuria Status: Resolved Assessment and Plan: * Morales catheter in place (7) Acute kidney injury: Code(s): N17.9 - Acute kidney failure, unspecified Status: Acute Assessment and Plan: * Resolved (8) Essential hypertension: Code(s): I10 - Essential (primary) hypertension Status: Acute Assessment and Plan: * Continue to monitor BP (9) Asthma: Qualifiers: Asthma severity: mild Asthma persistence: intermittent Asthma complication type: uncomplicated Qualified Code(s): J45.20 - Mild intermittent asthma, uncomplicated Code(s): J45.909 - Unspecified asthma, uncomplicated Status: Chronic Assessment and Plan: * No acute issues; continue maintenance inhalers. (10) UTI (urinary tract infection): Code(s): N39.0 - Urinary tract infection, site not specified Status: Acute Assessment and Plan: * Urine cultures not growing any specific bacteria, d/c antibiotics. Subjective Date/time seen: 10/23/19 09:02 Interval history: Mehreen is an 84-year-old female with hyp
--- NOTE | 2019-10-23 09:02 | PM.IMPN ---
Progress Note: A&P Assessment and Plan (1) Fall from ground level: Code(s): W18.30XA - Fall on same level, unspecified, initial encounter Status: Acute Assessment and Plan: She has a history of recurrent falls with several injuries in the past to include odontoid fracture, rib fractures, and scapular fracture. She sustained a superior and inferior left pubic rami fractures. Fall precautions will be initiated and will once again consult PT/OT. Pain control: We will stop the moprhine since she looks comfortable and continue with norco PRN. The pain medications might be contributing to her confusion. (2) Fracture of ramus of left pubis: Code(s): S32.592A - Other specified fracture of left pubis, initial encounter for closed fracture Status: Acute Assessment and Plan: Imaging shows mild displacement of a comminuted fracture involving the left superior and inferior pelvic rami. Analgesics available as needed. orthopedic consult (3) Delirium: Code(s): R41.0 - Disorientation, unspecified Status: Acute Assessment and Plan: Likely multifactorial due to pain medications, immobility, recent fracture. No underlying infection, UA negative. CT of the head was negative for an acute process. We will get ammonia , vitamin B12 and folate levels. Consult neurology for further assessment. (4) Tachycardia: Code(s): R00.0 - Tachycardia, unspecified Status: Acute Assessment and Plan: Unclear etiology, she is asymptomatic otherwise. TSH checked earlier this month wnl. Underlying pain might be contributing to the tachycardia. Cardiology is following. (5) Chest pain: Code(s): R07.9 - Chest pain, unspecified Status: Acute Assessment and Plan: Patient was complaining of some vague chest pain after I brought attention to the fact that she was tachycardic. EKG shows old Q-waves in the inferior leads No chest pain today (6) Gross hematuria: Code(s): R31.0 - Gross hematuria Status: Resolved Assessment and Plan: Morales catheter in place (7) Acute kidney injury: Code(s): N17.9 - Acute kidney failure, unspecified Status: Acute Assessment and Plan: Resolved (8) Essential hypertension: Code(s): I10 - Essential (primary) hypertension Status: Acute Assessment and Plan: Continue to monitor BP (9) Asthma: Qualifiers: Asthma severity: mild Asthma persistence: intermittent Asthma complication type: uncomplicated Qualified Code(s): J45.20 - Mild intermittent asthma, uncomplicated Code(s): J45.909 - Unspecified asthma, uncomplicated Status: Chronic Assessment and Plan: No acute issues; continue maintenance inhalers. (10) UTI (urinary tract infection): Code(s): N39.0 - Urinary tract infection, site not specified Status: Acute Assessment and Plan: Urine cultures not growing any specific bacteria, d/c antibiotics. Subjective Date/time seen: 10/23/19 09:02 Interval history: Mehreen is an 84-year-old female with hypertension, hyperlipidemia, GERD, and chronic pain on hydrocodone who presented to the emergency department for evaluation of left hip pain after a fall. History of previous falls and syncopal event. Pt has a monitor in situ She remains confused, I spoke with the son Medardo who is the POA and according to him she recently had an assessment for dementia and she does not have that diagnosis. . Review of Systems Review of Systems: All systems reviewed & ar
[2019-10-23 10:16] LABS: Ammonia < 9 umol/L (9-30)
[2019-10-23] MEDS: DOCUSATE SODIUM 100 MG CAPSULE PO (10:34)
[2019-10-23] MEDS: FLUTICASONE PROPIONATE 0.05% NA SPR 16 GM BTL (*BKC) 1 SPRAY NASAL (10:34)
[2019-10-23] MEDS: LOVASTATIN 20 MG TABLET 40 MG PO (10:35)
[2019-10-23] MEDS: MONTELUKAST SODIUM 10 MG TABLET PO (10:35)
[2019-10-23] MEDS: GABAPENTIN 400 MG CAPSULE 800 MG PO ×2 (10:35→20:22)
[2019-10-23] MEDS: PANTOPRAZOLE 40 MG TABLET PO (10:35)
[2019-10-23] MEDS: MULTIVITS W-FE,MIN CHEWABLE TABLET 1 TABLET PO (10:35)
[2019-10-23] MEDS: polyethylene glycoL 3350 17 GM POWD.PACK PO (10:35)
[2019-10-23 11:15] VITALS: BP 120/66; PULSE 64; RESP 16; TEMP 36.2; O2SAT 94
--- NOTE | 2019-10-23 13:43 | CONS_ITS ---
DATE OF CONSULTATION: 10/19/2019 HISTORY OF PRESENT ILLNESS: An 84-year-old lady admitted to the hospital for the fall with resulting left hip pain in addition to ongoing history of: 1. Hypertension. 2. Hyperlipidemia. 3. GERD. 4. Chronic pain. 5. History of recurrent falls resulting the odontoid fracture, multiple rib fractures, left scapular fracture, traumatic pneumothorax, rib fracture. She has been documented to have the abnormalities on the echocardiogram with old inferior AK on the EKG, for which she was recommended to have event monitor by Dr. Regulo Correa, as an outpatient including the stress test. She lives alone at home. Has been seen at ER on 10/09 for the complaint of back pain again secondary to fall with T8 compression fracture. She has declined in the past the rehab, alf facility, prison placement. Her blood pressure has also been running low, recently she was noted to be tachycardiac, for which Dr. Gallegos has been doing the evaluation. She has undergone bilateral total knee replacement, hysterectomy for uterine cancer. She has history off six-packs year. Former smoker. Does not drink. Takes multiple medications as outline. PHYSICAL EXAMINATION: VITAL SIGNS: Has been documented to be afebrile, pulse 77, respirations 20, blood pressure 70/40, only 1 time 132/85. GENERAL: Awake, alert, cooperative, in no obvious acute distress. HEAD: Normocephalic. Ear, nose, throat examination normal. NECK: Supple. HEART: Regular. LUNGS: Clear. ABDOMEN: Soft. NEUROLOGIC: She is awake, alert. Pupils round, regular. Norman of vision full. Extraocular movements full. Face symmetrical. Tongue midline. Motor examination revealed her to have decreased strength in upper and lower extremities with decreased reflexes. Downgoing plantar responses. Chest x-ray negative. Hip pelvic x-rays, mild displacement of comminuted fracture, left superior-inferior pubic rami. The patient had a CT of the head on 10/21, which is negative for the bleed. Hip and pelvic x-rays, mild displacement of the comminuted fracture, left superior-inferior pubic rami. Thoracic spine on 10/09, T8 compression fracture with mild vertebral body height loss, [id number] thoracic and severe upper lumbar spondylosis, hiatal hernia of moderate size, cholelithiasis. Brain MRI on 06/11, extensive nonspecific white matter disease. She had a cervical spine CT scan on 07/31, which documented severe cervical spondylosis without acute finding and she had a cervical spine on 03/14, also which was again with same finding. Considering all these studies and multiple falls, she will benefit from the prison placement, but even if we take care of the acute problem, she will definitely have frequent fall because she has generalized muscle weakness. Her most recent CBC is with hemoglobin 11.9, calcium has dropped down to 7.9 from 8. If any further question arises, please do not hesitate to contact me. ALETA MILLER M.D. INSTRUCTOR [employer] INSTRUCTOR [employer] D [place] MT: Melissa
[2019-10-23 16:00] VITALS: BP 121/57; PULSE 92; RESP 18; TEMP 35.6; O2SAT 96
[2019-10-23 18:54] LABS: SARS-CoV-2 RNA PCR Negative
[2019-10-23] MEDS: MELATONIN 3 MG TABLET PO (20:22)
[2019-10-23 22:51] VITALS: BP 120/65; PULSE 92; RESP 16; TEMP 36.2; O2SAT 93
[2019-10-24 05:41] LABS: Basophils Absolute Auto 0.1 K/mm3 (0.0-0.1); Basophils Percent Auto 0.6 % (0.2-1.2); Eosinophils Absolute Auto 0.3 K/mm3 (0-0.3); Eosinophils Percent Auto 3.3 % (0-4.4); Hematocrit 33.9 % (37.0-47.0); Hemoglobin 11.5 g/dL (12.0-15.0); Immature Granulocyte Absolute 0.13 K/mm3 (0.00-0.031); Immature Granulocyte Percent A 1.5 % (0-0.5); Lymphocytes Absolute Auto 1.15 K/mm3 (0.9-3.2); Lymphocytes Percent Auto 13.4 % (18.3-44.2); Mean Corpuscular HGB Conc 33.9 g/dl (32-36); Mean Corpuscular Hemoglobin 31.1 pg (26-34); Mean Corpuscular Volume 91.6 fl (80-100); Mean Platelet Volume 11.2 fl (7.4-10.4); Monocytes Absolute Auto 0.7 K/mm3 (0.1-0.6); Monocytes Percent Auto 7.7 % (2.6-8.5); Neutrophils Absolute Auto 6.3 K/mm3 (1.3-6.7); Neutrophils Percent Auto 73.5 % (45.5-73.1); Platelet Count Result 197 k/mm3 (150-375); Red Cell Distribution Width 13.4 % (11.5-14.5); White Blood Count 8.6 K/mm3 (4.5-10.0)
[2019-10-24 06:00] LABS: Blood Urea Nitrogen 19 mg/dL (7-17); Calcium 7.6 mg/dL (8.4-10.2); Carbon Dioxide 25 mmol/L (22-30); Chloride 105 mmol/L (98-107); Estimated CRCL calculation 52 ml/min; Estimated Glomerular Filt Rate > 60; Glucose 108 mg/dL (65-105); Potassium 3.4 mmol/L (3.4-5.0); Sodium 133 mmol/L (137-145)
--- NOTE | 2019-10-24 09:12 | P.DS_ITS ---
DS: Admitting Diagnosis Admitting Diagnosis Admitting Diagnosis: Fall on same level, unspecified, initial encounter DS: Discharge Diagnosis Discharge Diagnosis (1) Fall from ground level: Code(s): W18.30XA - Fall on same level, unspecified, initial encounter Status: Acute Assessment and Plan: * She has a history of recurrent falls with several injuries in the past to include odontoid fracture, rib fractures, and scapular fracture. * She sustained a superior and inferior left pubic rami fractures. * Fall precautions will be initiated and will once again consult PT/OT. Pain control while in the hospital and discharge to SNF (2) Fracture of ramus of left pubis: Code(s): S32.592A - Other specified fracture of left pubis, initial encounter for closed fracture Status: Acute Assessment and Plan: * Imaging shows mild displacement of a comminuted fracture involving the left superior and inferior pelvic rami. * Analgesics prn * Orthopedic consult, weight bearing as tolerated and 6 weeks for recovery. (3) Delirium: Code(s): R41.0 - Disorientation, unspecified Status: Acute Assessment and Plan: * Likely multifactorial due to pain medications, immobility, recent fracture. * Or mild Uti UA is positive UC is negative. Pt was treated with IV abx for a few days. (4) Tachycardia: Code(s): R00.0 - Tachycardia, unspecified Status: Acute Assessment and Plan: * Unclear etiology, ? pain related. * TSH checked earlier this month and is normal. (5) Chest pain: Code(s): R07.9 - Chest pain, unspecified Status: Acute Assessment and Plan: * Patient was complaining of some vague chest pain after I brought attention to the fact that she was tachycardic. * EKG shows old Q-waves in the inferior leads * No further chest pain, cardiology have signed off (6) Gross hematuria: Code(s): R31.0 - Gross hematuria Status: Resolved Assessment and Plan: * Morales catheter in place, no hematuria now. (7) Acute kidney injury: Code(s): N17.9 - Acute kidney failure, unspecified Status: Acute Assessment and Plan: * Resolved (8) Essential hypertension: Code(s): I10 - Essential (primary) hypertension Status: Acute Assessment and Plan: * Continue to monitor BP (9) Asthma: Qualifiers: Asthma complication type: uncomplicated Asthma persistence: intermittent Asthma severity: mild Qualified Code(s): J45.20 - Mild intermittent asthma, uncomplicated Code(s): J45.909 - Unspecified asthma, uncomplicated Status: Chronic Assessment and Plan: * No acute issues; continue maintenance inhalers. (10) UTI (urinary tract infection): Code(s): N39.0 - Urinary tract infection, site not specified Status: Acute Assessment and Plan: * Urine cultures not growing any specific bacteria, d/c antibiotics. DS: Summary Time Spent with Patient Time attestation: Total time spent providing and/or coordinating discharge services: Exam Narrative: Exam Narrative:
--- NOTE | 2019-10-24 09:12 | PM.DS ---
DS: Admitting Diagnosis Admitting Diagnosis Admitting Diagnosis: Fall on same level, unspecified, initial encounter DS: Discharge Diagnosis Discharge Diagnosis (1) Fall from ground level: Code(s): W18.30XA - Fall on same level, unspecified, initial encounter Status: Acute Assessment and Plan: She has a history of recurrent falls with several injuries in the past to include odontoid fracture, rib fractures, and scapular fracture. She sustained a superior and inferior left pubic rami fractures. Fall precautions will be initiated and will once again consult PT/OT. Pain control while in the hospital and discharge to SNF (2) Fracture of ramus of left pubis: Code(s): S32.592A - Other specified fracture of left pubis, initial encounter for closed fracture Status: Acute Assessment and Plan: Imaging shows mild displacement of a comminuted fracture involving the left superior and inferior pelvic rami. Analgesics prn Orthopedic consult, weight bearing as tolerated and 6 weeks for recovery. (3) Delirium: Code(s): R41.0 - Disorientation, unspecified Status: Acute Assessment and Plan: Likely multifactorial due to pain medications, immobility, recent fracture. Or mild Uti UA is positive UC is negative. Pt was treated with IV abx for a few days. (4) Tachycardia: Code(s): R00.0 - Tachycardia, unspecified Status: Acute Assessment and Plan: Unclear etiology, ? pain related. TSH checked earlier this month and is normal. (5) Chest pain: Code(s): R07.9 - Chest pain, unspecified Status: Acute Assessment and Plan: Patient was complaining of some vague chest pain after I brought attention to the fact that she was tachycardic. EKG shows old Q-waves in the inferior leads No further chest pain, cardiology have signed off (6) Gross hematuria: Code(s): R31.0 - Gross hematuria Status: Resolved Assessment and Plan: Morales catheter in place, no hematuria now. (7) Acute kidney injury: Code(s): N17.9 - Acute kidney failure, unspecified Status: Acute Assessment and Plan: Resolved (8) Essential hypertension: Code(s): I10 - Essential (primary) hypertension Status: Acute Assessment and Plan: Continue to monitor BP (9) Asthma: Qualifiers: Asthma complication type: uncomplicated Asthma persistence: intermittent Asthma severity: mild Qualified Code(s): J45.20 - Mild intermittent asthma, uncomplicated Code(s): J45.909 - Unspecified asthma, uncomplicated Status: Chronic Assessment and Plan: No acute issues; continue maintenance inhalers. (10) UTI (urinary tract infection): Code(s): N39.0 - Urinary tract infection, site not specified Status: Acute Assessment and Plan: Urine cultures not growing any specific bacteria, d/c antibiotics. DS: Summary Time Spent with Patient Time attestation: Total time spent providing and/or coordinating discharge services: Exam Narrative: Exam Narrative: General: Elderly very confused but pleasant Respiratory: Lungs are clear to auscultation bilaterally. Cardiovascular: Regular rate and rhythm with S1-S2. Gastrointestinal: Abdomen is soft, nontender, and nondistended with positive bowel sounds. Genitourinary: Morales catheter Skin: Warm, dry, and slightly pale. No rash or lesions on limited exam. Extremities: No cyanosis, clubbing, or edema. Musculoskeletal: Tender to palpation over left hip Neurological: Alert. Cr
[2019-10-24 09:19] VITALS: BP 123/68; PULSE 93; RESP 18; TEMP 36.3; O2SAT 95
[2019-10-24] MEDS: FLUTICASONE PROPIONATE 0.05% NA SPR 16 GM BTL (*BKC) 1 SPRAY NASAL (09:46)
[2019-10-24] MEDS: PANTOPRAZOLE 40 MG TABLET PO (09:47)
[2019-10-24] MEDS: MULTIVITS W-FE,MIN CHEWABLE TABLET 1 TABLET PO (09:47)
[2019-10-24] MEDS: LOVASTATIN 20 MG TABLET 40 MG PO (09:47)
[2019-10-24] MEDS: MONTELUKAST SODIUM 10 MG TABLET PO (09:47)
[2019-10-24] MEDS: GABAPENTIN 400 MG CAPSULE 800 MG PO (09:47)
[2019-10-26 04:38] LABS: Red Blood Cell Folate 975 ng/mL RBC (>280)
== END 2019-10-24 13:20 | DRG 536 ==
LOC: ANHED 14:53 → ANH3MEDSUR 19:12 → ANHIMU 10-20 00:12 → ANH3MED 10-22 12:18 → ANH3MEDSUR 10-26 12:35 → ANHIMU 10-26 12:35
PROVIDERS: Family Medicine; Physician Assistant; Admitting Provider Internal Medicine; Emergency Provider Emergency Medicine; PCP Internal Medicine; Visit Provider Hospitalist
DX: S32.592A Other specified fracture of left pubis, initial encounter for closed fracture (principal); N17.9 Acute kidney failure, unspecified; F05 Delirium due to known physiological condition; E86.0 Dehydration; Z11.59 Encounter for screening for other viral diseases; I10 Essential (primary) hypertension; E78.5 Hyperlipidemia, unspecified; W01.0XXA Fall on same level from slipping, tripping and stumbling without subsequent striking against object, initial encounter; K21.9 Gastro-esophageal reflux disease without esophagitis; R31.0 Gross hematuria; R00.0 Tachycardia, unspecified; M81.0 Age-related osteoporosis without current pathological fracture; M41.9 Scoliosis, unspecified; M19.90 Unspecified osteoarthritis, unspecified site; J45.909 Unspecified asthma, uncomplicated; Z96.653 Presence of artificial knee joint, bilateral; R79.89 Other specified abnormal findings of blood chemistry; Z87.891 Personal history of nicotine dependence; Z90.710 Acquired absence of both cervix and uterus; Z85.42 Personal history of malignant neoplasm of other parts of uterus
CPT/HCPCS: 36415; 70450; 71045; 73502; 80048; 80053; 81001; 82140; 82550; 82607; 82747; 83605; 83735; 83880; 84484; 85025; 85027; 85380; 85610; 85730; 86140; 87040; 87086; 87635; 92610; 93005; 94640; 96361; 96365; 97110; 97162; 97166; 97530; 97535; 99285; A9270; C9803; J0696; J2270; J7030; J7120; U0003

== ENCOUNTER 2020-07-21 22:06 | Emergency (ER) | payer MEDICARE, SELFPAY ==
--- NOTE | ~2020-07-21 | XR_ITS ---
EXAMINATION: XR chest 1V portable DATE: 07/21/2020 22:55 INDICATION: Chest pain, anxiety, hypertension and GERD. TECHNIQUE: frontal view of the chest was obtained. COMPARISON: Chest radiograph dated 10/23/2019 FINDINGS: Chronic elevation of the left hemidiaphragm. Linear discoid atelectasis/scarring at the bilateral jes g bases. No other airspace opacities, pulmonary edema, pleural effusion or pneumothorax. Heart size i s normal. Multiple old bilateral rib fracture deformities, at least one of which on the left remains nonunited. IMPRESSION: 1. Linear discoid atelectasis/scarring at the bilateral lung bases. Reviewed, dictated and finalized at location A.
[2020-07-21 22:10] VITALS: BP 149/84; PULSE 66; RESP 23; TEMP 36.7; O2SAT 97
[2020-07-21 22:21] VITALS: PULSE 66; O2SAT 95
[2020-07-21 22:32] VITALS: BP 143/72; PULSE 64; RESP 18; O2SAT 96
--- NOTE | 2020-07-21 22:36 | ECG_ITS ---
Measurements Intervals [place] Rate: 65 P: 27 CO: 163 QRS: 26 QRSD: 79 T: 44 QT: 405 QTc: 423 Interpretive Statements SINUS RHYTHM BASELINE ARTIFACT- I, II, III, AVR, AVL, AVF, V1-V3 NORMAL ECG Electronically Signed On 07-22-2020 7:03:03 CDT by Adam Wynn D.O.
--- NOTE | 2020-07-21 22:37 | ED.CHESTPAIN ---
HPI - Chest Pain General Chief Complaint: Chest Pain Stated Complaint: CP Time Seen by Provider: 07/21/20 22:22 Source: patient and family Mode of arrival: EMS Limitations: dementia History of Present Illness HPI narrative: This is an 85 year old female with history of hypertension, hyperlipidemia and dementia who presents with family for evaluation of possible anxiety. Her daughter in law is at bedside providing history. She states patient started screaming help around 9 pm. She states patient seems to get up set when the TV turns off . She states she started asking patient questions to figure out how she needed help. She reports patient told her she was having a heart attack but she thinks patient was just saying yes to everything she asked. She reports patient has done this before when she gets upset. Patient does not have cardiac history. Patient told EMS she had chest pain but she denies chest pain when I ask. Her only complaint is trouble breathing with mask . Her daughter states they are having issues with patient lying and saying something is wrong when nothing is happening. Patient told life alert she fell when she was laying in the bed in the past. Related Data Home Medications Medication Instructions Recorded Confirmed Adult Multivitamin Gummies 200 mcg PO DAILY 08/01/19 10/19/19 Excedrin Migraine 1 tablet PO Q4-6H PRN 08/01/19 10/19/19 ascorbic acid (vitamin C) [Vitamin 500 mg PO DAILY 08/01/19 10/19/19 C] vitamin E 400 unit PO DAILY 08/01/19 10/19/19 docusate sodium 100 mg PO DAILY 10/04/19 10/19/19 gabapentin 800 mg PO BID 10/04/19 10/19/19 valsartan 80 mg PO DAILY 10/04/19 10/19/19 pantoprazole 40 mg PO DAILY 10/19/19 10/19/19 donepezil mg 07/21/20 hydrocodone-acetaminophen tablet 07/21/20 trazodone 07/21/20 Allergies Allergy/AdvReac Type Severity Reaction Status Date / Time CAYETANO Inhibitors Allergy Severe Unknown Verified 07/21/20 23:13 meperidine Allergy Unknown Unknown Verified 07/21/20 23:13 Sulfa (Sulfonamide Allergy Unknown Unknown Verified 07/21/20 23:13 Antibiotics) sulfanilamide Allergy Unknown Unknown Verified 07/21/20 23:13 sulfur dioxide Allergy Unknown Unknown Verified 10/10/19 15:19 Review of Systems Review of Systems: All systems reviewed & are unremarkable except as noted in HPI and below PMFSH Past Medical History Medical History (Updated 07/22/20 @ 02:08 by Francia Lyle MD) Asthma C2 cervical fracture Type 2 odontoid fracture sustained in fall 05/07/2016, requiring no cervical intervention. 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 Combined systolic and diastolic cardiac dysfunction Echocardiogram on 10/04/2019 showed a normal LV chamber, mildly reduced LV systolic function with an ejection fraction estimated at 50 to 55%, grade 1 diastolic dysfunction, hypokinesis of the basal inferior, mid inferior, and basal inferior lateral ramirez. Mild mitral valve and tricuspid valve regurgitation also noted. Essential hypertension GERD (gastroesophageal reflux disease) Hyperlipidemia (Unknown) Left scapula fracture (~07/2019) Secondary to fall. Multiple falls Osteoarthritis Osteoporosis (Unknown) Rib fractures History of bilateral rib fractures due to falls. Right rib fracture Scoliosis Uterine cancer Status post total hysterectomy. Surgical History Surgical History History of bilateral knee replacement History of hysterectomy For uterine cancer. Family History Family History Sibling Hypertension Family history of coronary artery disease Mother Hypertension Social History Social History Social History: The patient lives in her own home in [place]. 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 She is listed a
[2020-07-21 22:49] LABS: Basophils Percent Auto 0.5 % (0.2-1.2); Eosinophils Absolute Auto 0.2 K/mm3 (0-0.3); Eosinophils Percent Auto 3.5 % (0-4.4); Hematocrit 39.9 % (37.0-47.0); Hemoglobin 13.3 g/dL (12.0-15.0); Immature Granulocyte Absolute 0.02 K/mm3 (0.00-0.031); Immature Granulocyte Percent A 0.3 % (0-0.5); Lymphocytes Absolute Auto 2.19 K/mm3 (0.9-3.2); Lymphocytes Percent Auto 34.4 % (18.3-44.2); Mean Corpuscular HGB Conc 33.3 g/dl (32-36); Mean Corpuscular Hemoglobin 30.8 pg (26-34); Mean Corpuscular Volume 92.4 fl (80-100); Mean Platelet Volume 10.2 fl (7.4-10.4); Monocytes Absolute Auto 0.5 K/mm3 (0.1-0.6); Monocytes Percent Auto 7.5 % (2.6-8.5); Neutrophils Absolute Auto 3.4 K/mm3 (1.3-6.7); Neutrophils Percent Auto 53.8 % (45.5-73.1); Platelet Count Result 174 k/mm3 (150-375); Red Blood Count 4.32 M/mm3 (4.2-5.4); Red Cell Distribution Width 13.4 % (11.5-14.5); White Blood Count 6.4 K/mm3 (4.5-10.0)
[2020-07-21 22:53] VITALS: BP 143/72; PULSE 62; RESP 15; O2SAT 97
[2020-07-21 22:58] LABS: INR 0.9; Prothrombin Time 13.2 Seconds (11.1-14.7)
[2020-07-21 22:59] LABS: Partial Thromboplastin Time 26.8 SECONDS (22.3-36.8)
[2020-07-21 23:00] LABS: Anion Gap 4 mmol/L (8-16); Blood Urea Nitrogen 20 mg/dL (7-17); Calcium 8.9 mg/dL (8.4-10.2); Carbon Dioxide 28 mmol/L (22-30); Chloride 105 mmol/L (98-107); Estimated Glomerular Filt Rate > 60; Glucose 99 mg/dL (65-105); Potassium 4.2 mmol/L (3.4-5.0); Sodium 137 mmol/L (137-145)
[2020-07-21 23:12] LABS: Troponin I < 0.012 ng/mL (0.000-0.034)
--- NOTE | 2020-07-21 23:17 | PC.NURSE ---
Report to oncoming RNChad
[2020-07-21 23:32] VITALS: BP 127/70; PULSE 64; RESP 17; O2SAT 99
[2020-07-22 01:56] LABS: Troponin I < 0.012 ng/mL (0.000-0.034)
[2020-07-22 02:36] VITALS: BP 112/60; PULSE 63; RESP 14; TEMP 36.6; O2SAT 94
== END 2020-07-22 03:07 | disposition home or self-care (01) ==
PROVIDERS: Emergency Provider General Practice; PCP Internal Medicine
DX: R07.9 Chest pain, unspecified (principal); F41.9 Anxiety disorder, unspecified; S22.43XK Multiple fractures of ribs, bilateral, subsequent encounter for fracture with nonunion; X58.XXXD Exposure to other specified factors, subsequent encounter; E78.5 Hyperlipidemia, unspecified; F03.90 Unspecified dementia, unspecified severity, without behavioral disturbance, psychotic disturbance, mood disturbance, and anxiety; I11.0 Hypertensive heart disease with heart failure; I50.40 Unspecified combined systolic (congestive) and diastolic (congestive) heart failure; K21.9 Gastro-esophageal reflux disease without esophagitis; M19.90 Unspecified osteoarthritis, unspecified site; Z85.42 Personal history of malignant neoplasm of other parts of uterus; Z96.653 Presence of artificial knee joint, bilateral; Z87.891 Personal history of nicotine dependence
CPT/HCPCS: 36415; 71045; 80048; 84484; 85025; 85610; 85730; 93005; 99284

== ENCOUNTER 2020-08-05 22:18 | Inpatient (IN) | payer MEDICARE, SELFPAY ==
--- NOTE | ~2020-08-05 | CT_ITS ---
EXAMINATION: CT brain wo con EXAM DATE: 08/06/2020 00:28 INDICATION: Syncope. TECHNIQUE: Spiral CT of the head was performed without contrast. Axial, coronal and sagittal images were reviewed. The dose-length product (DLP) for this examination was 681.00 mGy-cm. The exposure w as tailored according to patient size, and iterative reconstruction (ASIR) was used as additional dos e reduction technique. Comparison is made to prior examination from 10/22/2019. FINDINGS: There is no acute intraparenchymal hemorrhage. No evidence of intraparenchymal brain mass lesion. No evidence of acute infarction. Please note that initial head CT has limited sensitivity f or small or acute infarctions. Small to moderate size old left occipital lobe infarction. This has d eveloped compared to previous examination. Punctate old right internal capsular lacunar infarction. T here is moderate to severe periventricular and subcortical hypodensity, nonspecific but probably rela romie to small vessel ischemic disease. There is ventricular prominence out of proportion to sulci wh ich is suspected most likely central atrophy rather than hydrocephalus. Normal pressure hydrocephalu s cannot be excluded (clinical triad ataxia/gait disturbance, dementia, urinary incontinence). Ther e is intracranial carotid arteriosclerosis. There are no extra-axial collections. There is no mass effect or midline shift. Patient has had bilateral ocular lens surgery. Soft tissue is unremarkable . The visualized sinuses and mastoid air cells are well aerated. IMPRESSION: 1. No acute intracranial findings. 2. 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 3. Dilated ventricles, more likely central atrophy than NPH. 4. Microangiopathy. Reviewed, dictated and finalized at location A.
--- NOTE | ~2020-08-05 | XR_ITS ---
EXAMINATION: XR barium swallow modified EXAM DATE: 08/07/2020 09:18 INDICATION: Coughing. TECHNIQUE: Modified barium esophagram was performed by myself to administered fluoroscopy, in conjun ction with speech pathologist who administered barium in varying consistencies as per speech patholog ist documentation. This was recorded on tape. Pulsed dose reduction fluoroscopy was used with fluor oscopic time of 3.2 minutes. A total of 2 images obtained for the exam. The DAP for this procedure was 2.1 Gycm2. FINDINGS: Oral stage: Adequate function. Pharyngeal phase: Reduced laryngeal elevation and tongue base retraction. Vallecular residual. Laryngeal penetration: Demonstrated with liquids. Aspiration: Trace. Laryngeal sensitivity: Demonstrated. IMPRESSION: Oral feedings recommended with limitations as per speech pathologist. Please refer to anna scott pathologist findings and specific feeding recommendations. Reviewed, dictated and finalized at location A. IMPRESSION: Oral feedings recommended with limitations as per speech pathologis t. Please refer to speech pathologist findings and specific feeding recommend ations.
[2020-08-05 22:19] VITALS: BP 156/81; PULSE 63; RESP 20; TEMP 36.3; O2SAT 100
--- NOTE | 2020-08-05 22:19 | ECG_ITS ---
Measurements Intervals [place] Rate: 67 P: TN: 0 QRS: 17 QRSD: 74 T: 31 QT: 390 QTc: 413 Interpretive Statements SINUS RHYTHM BASELINE ARTIFACT- I, II, III, AVL, V1-V2, V4, V6 BORDERLINE ECG Electronically Signed On 08-06-2020 8:05:05 CDT by Adam Wynn D.O.
[2020-08-05 22:30] VITALS: O2SAT 99
[2020-08-05 23:13] LABS: Basophils Percent Auto 0.7 % (0.2-1.2); Eosinophils Absolute Auto 0.1 K/mm3 (0-0.3); Hematocrit 40.7 % (37.0-47.0); Hemoglobin 13.9 g/dL (12.0-15.0); Immature Granulocyte Absolute 0.03 K/mm3 (0.00-0.031); Immature Granulocyte Percent A 0.5 % (0-0.5); Lymphocytes Absolute Auto 1.28 K/mm3 (0.9-3.2); Lymphocytes Percent Auto 21.2 % (18.3-44.2); Mean Corpuscular HGB Conc 34.2 g/dl (32-36); Mean Corpuscular Hemoglobin 31.2 pg (26-34); Mean Corpuscular Volume 91.3 fl (80-100); Mean Platelet Volume 10.2 fl (7.4-10.4); Monocytes Absolute Auto 0.4 K/mm3 (0.1-0.6); Monocytes Percent Auto 6.8 % (2.6-8.5); Neutrophils Absolute Auto 4.2 K/mm3 (1.3-6.7); Neutrophils Percent Auto 68.8 % (45.5-73.1); Platelet Count Result 197 k/mm3 (150-375); Red Blood Count 4.46 M/mm3 (4.2-5.4); Red Cell Distribution Width 13.4 % (11.5-14.5)
[2020-08-05 23:26] LABS: Anion Gap 5 mmol/L (8-16); Blood Urea Nitrogen 16 mg/dL (7-17); Calcium 8.6 mg/dL (8.4-10.2); Carbon Dioxide 25 mmol/L (22-30); Chloride 105 mmol/L (98-107); Estimated Glomerular Filt Rate > 60; Glucose 117 mg/dL (65-105); Potassium 3.9 mmol/L (3.4-5.0); Sodium 135 mmol/L (137-145)
[2020-08-05 23:30] VITALS: BP 105/63; PULSE 62; RESP 16; O2SAT 97
[2020-08-06] VITALS (43 sets, daily range): BP systolic 103–163; BP diastolic 52–86; PULSE 60–90; RESP 13–22; TEMP 36.1–36.6; O2SAT 95–100; BMI 22.5
--- NOTE | 2020-08-06 00:42 | ED.GENADULT ---
HPI - General Adult General Chief complaint: Syncope Stated complaint: syncopal Time Seen by Provider: 08/05/20 23:49 Source: EMS History of Present Illness HPI narrative: Patient is a 85 y/o female brought in by EMS for syncopal episode. She reportedly tried to get in wheel chair and slid to the ground. She has no recollection of the event. She states that she feels well. She has no complaint currently. Related Data Home Medications Medication Instructions Recorded Confirmed vitamin E 400 unit PO DAILY 08/01/19 08/06/20 gabapentin 800 mg PO BID 10/04/19 08/06/20 valsartan 80 mg PO DAILY 10/04/19 08/06/20 pantoprazole 40 mg PO BID 10/19/19 08/06/20 donepezil 5 mg PO HS 07/21/20 08/06/20 hydrocodone-acetaminophen 1 tablet PO BID 07/21/20 08/06/20 trazodone 100 mg PO HS 07/21/20 08/06/20 Ventolin HFA 90 mcg INHALATION Q4H PRN 08/06/20 08/06/20 cholecalciferol (vitamin D3) 25 mcg PO DAILY 08/06/20 08/06/20 [Vitamin D3] montelukast 10 mg PO HS 08/06/20 08/06/20 Allergies Allergy/AdvReac Type Severity Reaction Status Date / Time CAYETANO Inhibitors Allergy Severe Unknown Verified 07/21/20 23:13 meperidine Allergy Unknown Unknown Verified 07/21/20 23:13 Sulfa (Sulfonamide Allergy Unknown Unknown Verified 07/21/20 23:13 Antibiotics) sulfanilamide Allergy Unknown Unknown Verified 07/21/20 23:13 sulfur dioxide Allergy Unknown Unknown Verified 10/10/19 15:19 Review of Systems Review of Systems: ROS unobtainable: Yes unobtainable due to mental status COUNTS INCLUDE 234 BEDS AT THE [facility] Past Medical History Medical History (Updated 08/06/20 @ 16:20 by Ritu Curry MD) Asthma C2 cervical fracture Type 2 odontoid fracture sustained in fall 05/07/2016, requiring no cervical intervention. 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 Combined systolic and diastolic cardiac dysfunction Echocardiogram on 10/04/2019 showed a normal LV chamber, mildly reduced LV systolic function with an ejection fraction estimated at 50 to 55%, grade 1 diastolic dysfunction, hypokinesis of the basal inferior, mid inferior, and basal inferior lateral ramirez. Mild mitral valve and tricuspid valve regurgitation also noted. Essential hypertension GERD (gastroesophageal reflux disease) Hyperlipidemia (Unknown) Left scapula fracture (~07/2019) Secondary to fall. Multiple falls Osteoarthritis Osteoporosis (Unknown) Rib fractures History of bilateral rib fractures due to falls. Right rib fracture Scoliosis Uterine cancer Status post total hysterectomy. Surgical History Surgical History History of bilateral knee replacement History of hysterectomy For uterine cancer. Family History Family History Sibling Hypertension Family history of coronary artery disease Mother Hypertension Social History Social History Social History: The patient lives in her own home in [place]. 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 Her son, Medardo, is her surrogate decision maker. She is listed as a full code. She has a remote smoking history and quit in 1962. No alcohol or drug abuse. Smoking packs per day: 2 Smoking cigarettes per day: 40.0 Years smoked: 3 Smoking pack-years: 6.00 Smoking status: Never smoker Tobacco type: cigarettes Second hand tobacco smoke exposure: Yes Alcohol intake: never Substance use: never Substance use type: does not use Gender identity (if verbalized by the patient): Female Sexual Orientation (if Verbalized by the Patient): Straight or Heterosexual Spiritual care concerns: No Agree to blood products: No Exam Const: General: no acute distress and well developed Orientation/consciousness: oriented to person, oriented to place and confusion HENMT: Head: normocephalic Ears: external ears normal General nose exam: Normal e
[2020-08-06 01:49] LABS: Troponin I < 0.012 ng/mL (0.000-0.034)
[2020-08-06 05:03] LABS: Troponin I < 0.012 ng/mL (0.000-0.034)
[2020-08-06 08:08] LABS: Troponin I < 0.012 ng/mL (0.000-0.034)
--- NOTE | 2020-08-06 08:57 | ADMGEN ---
This patient, Mitra Verde, was admitted to med/telemetry Room 232-01. Patient/family oriented to hospital policies and general routines including ID bracelet, bed and alarms, visiting hours, pain management, procedures, bathroom and other care routines, personal items, smoking policy, room service/diet, and visiting hours. Information on how to activate the Rapid Response Team has been discussed. Patient/Family are encouraged to report perceived risks to care and to ask questions if they do not understand what they are told or what they should do.
[2020-08-06] MEDS: VITAMIN E 400 UNIT CAPSULE PO (11:43)
[2020-08-06] MEDS: VALSARTAN 80 MG TABLET PO (11:43)
[2020-08-06] MEDS: CHOLECALCIFEROL 1,000 UNITS TABLET 1000 UNITS PO (11:43)
[2020-08-06] MEDS: GABAPENTIN 400 MG CAPSULE 800 MG PO ×2 (11:43→20:06)
[2020-08-06] MEDS: PANTOPRAZOLE 40 MG TABLET PO ×2 (11:43→20:06)
[2020-08-06] MEDS: FLUTICASONE PROPIONATE 0.05% NA SPR 16 GM BTL (*BKC) 1 SPRAY NASAL (11:44)
[2020-08-06] MEDS: polyethylene glycoL 3350 17 GM POWD.PACK PO (11:44)
--- NOTE | 2020-08-06 15:00 | PCSTNOTE ---
Please refer to the Bedside Swallow Evaluation in the EMR. Please note, silent aspiration cannot be ruled out at bedside.
--- NOTE | 2020-08-06 17:15 | PM.IMHP ---
H&P: HPI History of Present Illness Date/Time: 08/06/20 17:15 Patient is 85-year-old female with a history of recurrent falls patient was brought to emergency depart as patient had slipped from sofa to the floor EMS was called and patient was brought to emergency depart for syncopal episode, patient has no recollection of the event, recently patient presented with similar symptoms and workup was negative, patient is clinically stable according to physical therapy see was able to walk with her walker from bed to the commode and to the chair with minimal assist, will continue PT OT patient will benefit going home with home health and physical therapy. I spoke with the patient's son and he is in agreement with the plan. Chief Complaint: Fall Review of Systems Review of Systems: All systems reviewed & are unremarkable except as noted in HPI and below PMFSH Past Medical History Medical History (Updated 08/06/20 @ 16:20 by Ritu Curry MD) Asthma C2 cervical fracture Type 2 odontoid fracture sustained in fall 05/07/2016, requiring no cervical intervention. 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 Combined systolic and diastolic cardiac dysfunction Echocardiogram on 10/04/2019 showed a normal LV chamber, mildly reduced LV systolic function with an ejection fraction estimated at 50 to 55%, grade 1 diastolic dysfunction, hypokinesis of the basal inferior, mid inferior, and basal inferior lateral ramirez. Mild mitral valve and tricuspid valve regurgitation also noted. Essential hypertension GERD (gastroesophageal reflux disease) Hyperlipidemia (Unknown) Left scapula fracture (~07/2019) Secondary to fall. Multiple falls Osteoarthritis Osteoporosis (Unknown) Rib fractures History of bilateral rib fractures due to falls. Right rib fracture Scoliosis Uterine cancer Status post total hysterectomy. Surgical History Surgical History History of bilateral knee replacement History of hysterectomy For uterine cancer. Family History Family History Sibling Hypertension Family history of coronary artery disease Mother Hypertension Social History Social History Social History: The patient lives in her own home in [place]. 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 She is listed as a full code. She has a remote smoking history and quit in 1962. No alcohol or drug abuse. Smoking packs per day: 2 Smoking cigarettes per day: 40.0 Years smoked: 3 Smoking pack-years: 6.00 Smoking status: Never smoker Tobacco type: cigarettes Second hand tobacco smoke exposure: Yes Alcohol intake: never Substance use: never Substance use type: does not use Gender identity (if verbalized by the patient): Female Sexual Orientation (if Verbalized by the Patient): Straight or Heterosexual Spiritual care concerns: No Agree to blood products: No Meds Home Medications and Allergies Home Medications Medication Instructions Recorded Confirmed Type vitamin E 400 unit PO DAILY 08/01/19 08/06/20 History alum-mag hydroxide-simeth [Mag-Al 30 ml PO QID PRN 7 Days ml 08/03/19 08/06/20 Rx Plus] polyethylene glycol 3350 [Miralax] 17 g PO QAM 7 Days each 08/03/19 08/06/20 Rx Spiriva Respimat 2 puff INHALATION HS #1 vial 08/13/19 08/06/20 Rx fluticasone propionate 1 spray INTRANASAL DAILY #1 vial 08/13/19 08/06/20 Rx gabapentin 800 mg PO BID 10/04/19 08/06/20 History valsartan 80 mg PO DAILY 10/04/19 08/06/20 History pantoprazole 40 mg PO BID 10/19/19 08/06/20 History donepezil 5 mg PO HS 07/21/20 08/06/20 History hydrocodone-acetaminophen 1 tablet PO BID 07/21/20 08/06/20 History trazodone 100 mg PO HS 07/21/20 08/06/20 History Ventolin HFA 90 mcg INHALATION Q4H PRN 08/06/2008/06
--- NOTE | 2020-08-06 18:25 | PC.NURSE ---
Pt transferred to room 348 via bed accompanied by staff( pt was med/tele overflow)- son notified of transfer- report given to Chica JOSEPH- belongings with pt
--- NOTE | 2020-08-06 18:29 | PC.NURSE ---
This patient, Mitra Verde, was received from IMU on 08/06/20 at 1829. Patient/family oriented to unit policies and routines
[2020-08-06] MEDS: traZODone HCL 50 MG TABLET 100 MG PO (20:06)
[2020-08-06] MEDS: DONEPEZIL HCL 5 MG TABLET PO (20:06)
[2020-08-06] MEDS: MONTELUKAST SODIUM 10 MG TABLET PO (20:06)
[2020-08-07] VITALS (12 sets, daily range): BP systolic 98–137; BP diastolic 46–80; PULSE 63–103; RESP 16–18; TEMP 36.1–36.6; O2SAT 93–99
[2020-08-07 06:02] LABS: Hematocrit 41.2 % (37.0-47.0); Hemoglobin 13.6 g/dL (12.0-15.0); Mean Corpuscular Hemoglobin 30.7 pg (26-34); Mean Platelet Volume 10.1 fl (7.4-10.4); Platelet Count Result 186 k/mm3 (150-375); Red Blood Count 4.43 M/mm3 (4.2-5.4); Red Cell Distribution Width 13.7 % (11.5-14.5); White Blood Count 6.8 K/mm3 (4.5-10.0)
[2020-08-07 06:17] LABS: Anion Gap 6 mmol/L (8-16); Blood Urea Nitrogen 18 mg/dL (7-17); Calcium 9.1 mg/dL (8.4-10.2); Carbon Dioxide 27 mmol/L (22-30); Chloride 105 mmol/L (98-107); Estimated CRCL calculation 37 ml/min; Estimated Glomerular Filt Rate 53; Glucose 95 mg/dL (65-105); Magnesium 1.8 mg/dL (1.6-2.3); Sodium 138 mmol/L (137-145)
[2020-08-07] MEDS: VITAMIN E 400 UNIT CAPSULE PO (09:25)
[2020-08-07] MEDS: GABAPENTIN 400 MG CAPSULE 800 MG PO ×2 (09:25→20:30)
[2020-08-07] MEDS: polyethylene glycoL 3350 17 GM POWD.PACK PO (09:25)
[2020-08-07] MEDS: CHOLECALCIFEROL 1,000 UNITS TABLET 1000 UNITS PO (09:25)
[2020-08-07] MEDS: PANTOPRAZOLE 40 MG TABLET PO ×2 (09:25→20:31)
[2020-08-07] MEDS: FLUTICASONE PROPIONATE 0.05% NA SPR 16 GM BTL (*BKC) 1 SPRAY NASAL (09:25)
--- NOTE | 2020-08-07 09:41 | PCSTNOTE ---
Please refer to the Modified Barium Swallow Evaluation in the EMR.
--- NOTE | 2020-08-07 13:26 | PM.IMPN ---
Progress Note: A&P Assessment and Plan (1) Syncope: Qualifiers: Syncope type: unspecified Qualified Code(s): R55 - Syncope and collapse Code(s): R55 - Syncope and collapse Status: Acute Assessment and Plan: 08/07/20 13:26 Patient is 85-year-old female with a history of recurrent falls patient was brought to emergency depart as patient had slipped from sofa to the floor EMS was called and patient was brought to emergency depart for syncopal episode, patient has no recollection of the event, recently patient presented with similar symptoms and workup was negative, patient is clinically stable according to physical therapy see was able to walk with her walker from bed to the commode and to the chair with minimal assist, will continue PT OT patient will benefit going home with home health and physical therapy. I spoke with the patient's son and he is in agreement with the plan. 08/07 yesterday during the day patient participate in physical therapy and was doing reasonably well however in the afternoon patient was not able to participate in physical therapy and was requiring more assistance similarly today patient is requiring more assistance with physical therapy and rehab, patient will benefit going home with physical therapy upon discharge, will continue to monitor the (2) Falls: Code(s): W19.XXXA - Unspecified fall, initial encounter Status: Acute Assessment and Plan: Most likely secondary debility will continue PT OT patient will benefit with physical therapy as outpatient Subjective Date/time seen: 08/07/20 13:26 Patient is 85-year-old female with a history of recurrent falls patient was brought to emergency depart as patient had slipped from sofa to the floor EMS was called and patient was brought to emergency depart for syncopal episode, patient has no recollection of the event, recently patient presented with similar symptoms and workup was negative, patient is clinically stable according to physical therapy see was able to walk with her walker from bed to the commode and to the chair with minimal assist, will continue PT OT patient will benefit going home with home health and physical therapy. I spoke with the patient's son and he is in agreement with the plan. 08/07 yesterday during the day patient participate in physical therapy and was doing reasonably well however in the afternoon patient was not able to participate in physical therapy and was requiring more assistance similarly today patient is requiring more assistance with physical therapy and rehab, patient will benefit going home with physical therapy upon discharge, will continue to monitor the Review of Systems Review of Systems: All systems reviewed & are unremarkable except as noted in HPI and below Exam Narrative: Exam Narrative: Elderly frail Patient is comfortable, NAD HEENT: eyes are clear and none icteric LUNGS:CTA HEART: RR S1S2 ABD: BS+, Soft and nontender Lower extremities: no edema SKIN: nonjaundiced Neuro: grossly intact. Objective Data Vital Signs Vital Signs: Vital Signs - 24 hr 08/06/20 16:00 08/06/20 17:00 08/06/20 18:44 Temperature 97.4 F L 97.8 F Pulse Rate 75 75 83 Respiratory Rate 18 16 Blood Pressure 107/55 L 121/80 Pulse Oximetry 98 98 08/06/20 20:00 08/06/20 23:23 08/07/20 00:00 Temperature 98 F Pulse Rate 79 61 69 Respiratory Rate 17 16 Blood Pressure 110/52 L Pulse Oximetry 100 95 08/07/20 04:00 08/07/20 05:17 08/07/20 07:56 Temperature 97 F L Pulse Rate 74 63 64 Respiratory Rate 16 Blood Pressure 98/46 L Pulse Oximetry 98 98 08/07/20 08:00 08/07/20 08:05 08/07/20 12:00 Temperature Pulse Rate 77 103 H Respiratory Rate Blood Pressure 109/56 L Pulse Oximetry Intake/Output Intake/Output: Intake & Output 08/04/20 08/05/20 08/06/20 08/07/20 23:59 23:59 23:59 23:59 Intake Total 480 630 Output Total 300 Balance
[2020-08-07] MEDS: MONTELUKAST SODIUM 10 MG TABLET PO (20:30)
[2020-08-07] MEDS: DONEPEZIL HCL 5 MG TABLET PO (20:30)
[2020-08-07] MEDS: traZODone HCL 50 MG TABLET 100 MG PO (20:30)
[2020-08-08] VITALS (10 sets, daily range): BP systolic 112–177; BP diastolic 52–98; PULSE 69–110; RESP 16–18; TEMP 35.9–36.6; O2SAT 96–100
[2020-08-08 05:37] LABS: Hematocrit 36.5 % (37.0-47.0); Hemoglobin 12.3 g/dL (12.0-15.0); Mean Corpuscular HGB Conc 33.7 g/dl (32-36); Mean Corpuscular Hemoglobin 30.1 pg (26-34); Mean Corpuscular Volume 89.5 fl (80-100); Mean Platelet Volume 10.2 fl (7.4-10.4); Platelet Count Result 192 k/mm3 (150-375); Red Blood Count 4.08 M/mm3 (4.2-5.4); Red Cell Distribution Width 13.2 % (11.5-14.5); White Blood Count 6.5 K/mm3 (4.5-10.0)
[2020-08-08 05:54] LABS: Anion Gap 4 mmol/L (8-16); Blood Urea Nitrogen 22 mg/dL (7-17); Calcium 8.4 mg/dL (8.4-10.2); Carbon Dioxide 27 mmol/L (22-30); Chloride 106 mmol/L (98-107); Estimated CRCL calculation 45 ml/min; Estimated Glomerular Filt Rate > 60; Glucose 89 mg/dL (65-105); Potassium 3.7 mmol/L (3.4-5.0); Sodium 137 mmol/L (137-145)
[2020-08-08] MEDS: VITAMIN E 400 UNIT CAPSULE PO (08:49)
[2020-08-08] MEDS: FLUTICASONE PROPIONATE 0.05% NA SPR 16 GM BTL (*BKC) 1 SPRAY NASAL (08:49)
[2020-08-08] MEDS: PANTOPRAZOLE 40 MG TABLET PO ×2 (08:49→20:10)
[2020-08-08] MEDS: GABAPENTIN 400 MG CAPSULE 800 MG PO ×2 (08:49→20:10)
[2020-08-08] MEDS: CHOLECALCIFEROL 1,000 UNITS TABLET 1000 UNITS PO (08:49)
[2020-08-08] MEDS: ACETAMINOPHEN 325 MG TABLET 650 MG PO (09:53)
--- NOTE | 2020-08-08 11:47 | P.DS_ITS ---
DS: Summary Time Spent with Patient Time attestation: Total time spent providing and/or coordinating discharge ser vices: DS: Data Data Completed and Pending Labs on day of discharge: Labs from last 24 hours 08/08/20 08/08/20 05:17 05:17 WBC 6.5 RBC 4.08 L Hgb 12.3 Hct 36.5 L MCV 89.5 MCH 30.1 MCHC 33.7 RDW 13.2 Plt Count 192 MPV 10.2 Sodium 137 Potassium 3.7 Chloride 106 Carbon Dioxide 27 Anion Gap 4 L BUN 22 H Creatinine 0.80 Estim Creat Clear Calc 45 Estimated GFR > 60 Glucose 89 Calcium 8.4 Discharge Plan Discharge Attending physician on discharge: Dulce Velazquez Discharging Clinician: uDlce Velazquez Patient Disposition: Home Health Service Activity: as tolerated Diet: as tolerated Discharge Instructions: Patient to follow up with her primary care provider as soon as possible, patient is instructed if any symptoms get worsen to go to nearest ER. Patient Instructions: Antibiotic Form Stand Alone Forms: General Discharge Information Follow-up/Referrals: Christian,Mook Tim MD [Primary Care Provider] - Discharge Medications: Continued gabapentin 400 mg capsule 800 mg PO BID RF: 0 pantoprazole 40 mg tablet,delayed release (DR/EC) 40 mg PO BID RF: 0 Ventolin HFA aerosol 90 mcg inhalation Q4H PRN (Reason: Shortness Of Breath) RF: 0 montelukast 10 mg tablet 10 mg PO HS RF: 0 cholecalciferol (vitamin D3) [Vitamin D3] 25 mcg (1,000 unit) Capsule 25 mcg PO DAILY RF: 0 vitamin E 400 unit Capsule 400 unit PO DAILY RF: 0 polyethylene glycol 3350 [Miralax] 17 gram Powder In Packet 17 g PO QAM 7 Days RF: 0 alum-mag hydroxide-simeth [Mag-Al Plus] 200-200-20 mg/5 mL Suspension 30 ml PO QID PRN (Reason: Dyspepsia) 7 Days RF: 0 fluticasone propionate 50 mcg/actuation spray,suspension 1 spray INTRANASAL DAILY Qty: 1 RF: 0 Spiriva Respimat 2.5 mcg/actuation Mist 2 puff INHALATION HS Qty: 1 RF: 0 donepezil 5 mg tablet 5 mg PO HS RF: 0 trazodone 100 mg tablet 100 mg PO HS RF: 0 Held valsartan 80 mg tablet 80 mg PO DAILY RF: 0 Hold Instructions: until seen by her primary care provider hydrocodone-acetaminophen 10-325 mg tablet 1 tablet PO BID RF: 0 Hold Instructions: until seen by her primary care provider Date of admission: 08/06/20 01:02 Primary Care Provider: Christian,Mook Tim Admitting Provider: Rui Gallegos Attending physician on admission: Rui Gallegos Condition: Stable Quality VTE Prophylaxis VTE prophylaxis: mechanical ordered
--- NOTE | 2020-08-08 13:59 | PM.IMPN ---
Progress Note: A&P Assessment and Plan (1) Syncope: Qualifiers: Syncope type: unspecified Qualified Code(s): R55 - Syncope and collapse Code(s): R55 - Syncope and collapse Status: Acute Assessment and Plan: 08/08/20 13:59 Patient is 85-year-old female with a history of recurrent falls patient was brought to emergency depart as patient had slipped from sofa to the floor EMS was called and patient was brought to emergency depart for syncopal episode, patient has no recollection of the event, recently patient presented with similar symptoms and workup was negative, patient is clinically stable according to physical therapy see was able to walk with her walker from bed to the commode and to the chair with minimal assist, will continue PT OT patient will benefit going home with home health and physical therapy. I spoke with the patient's son and he is in agreement with the plan. 08/07 yesterday during the day patient participate in physical therapy and was doing reasonably well however in the afternoon patient was not able to participate in physical therapy and was requiring more assistance similarly today patient is requiring more assistance with physical therapy and rehab, patient will benefit going home with physical therapy upon discharge, will continue to monitor the patient. 08/08 currently patient is participating in physical therapy and requiring assist with ADL, plan was to possibly discharge the patient however patient had a 3 loose BM, blood pressure is soft will hold patient blood pressure medication, will continue physical therapy and will continue to monitor the patient, patient is on laxative will hold and monitor patient and further recommendation to follow (2) Falls: Code(s): W19.XXXA - Unspecified fall, initial encounter Status: Acute Assessment and Plan: Most likely secondary debility will continue PT OT patient will benefit with physical therapy as outpatient Subjective Date/time seen: 08/08/20 13:59 Patient is 85-year-old female with a history of recurrent falls patient was brought to emergency depart as patient had slipped from sofa to the floor EMS was called and patient was brought to emergency depart for syncopal episode, patient has no recollection of the event, recently patient presented with similar symptoms and workup was negative, patient is clinically stable according to physical therapy see was able to walk with her walker from bed to the commode and to the chair with minimal assist, will continue PT OT patient will benefit going home with home health and physical therapy. I spoke with the patient's son and he is in agreement with the plan. 08/07 yesterday during the day patient participate in physical therapy and was doing reasonably well however in the afternoon patient was not able to participate in physical therapy and was requiring more assistance similarly today patient is requiring more assistance with physical therapy and rehab, patient will benefit going home with physical therapy upon discharge, will continue to monitor the patient. 08/08 currently patient is participating in physical therapy and requiring assist with ADL, plan was to possibly discharge the patient however patient had a 3 loose BM, blood pressure is soft will hold patient blood pressure medication, will continue physical therapy and will continue to monitor the patient, patient is on laxative will hold and monitor patient and further recommendation to follow Review of Systems Review of Systems: All systems reviewed & are unremarkable except as noted in HPI and below Exam Narrative: Exam Narrative: Elderly frail Patient is comfortable, NAD HEENT: eyes are clear and none icteric LUNGS:CTA HEART: RR S1S2 ABD: BS+, Soft and nontender Lower extremities: no edema SKIN: nonjaundiced Neuro: grossly intact. Objective Data Vital Signs Vital Signs: Vital Signs - 24 hr 08/07/20 16:00 08/07/
--- NOTE | 2020-08-08 18:22 | PHAR ---
Spiriva Respimat Institutional Pack 28ACT Inhalation [place]: 2.5 MCG/1 Actuation
[2020-08-08] MEDS: DONEPEZIL HCL 5 MG TABLET PO (20:10)
[2020-08-08] MEDS: traZODone HCL 50 MG TABLET 100 MG PO (20:10)
[2020-08-08] MEDS: MONTELUKAST SODIUM 10 MG TABLET PO (20:10)
[2020-08-09] VITALS: BP 125/70; PULSE 74; PULSE 85; RESP 16; TEMP 36.3; O2SAT 96
[2020-08-09 04:00] VITALS: BP 114/59; PULSE 67; PULSE 79; RESP 16; TEMP 35.9; O2SAT 93
[2020-08-09 05:55] LABS: Hematocrit 36.6 % (37.0-47.0); Hemoglobin 12.5 g/dL (12.0-15.0); Mean Corpuscular HGB Conc 34.2 g/dl (32-36); Mean Corpuscular Hemoglobin 31.1 pg (26-34); Mean Platelet Volume 10.4 fl (7.4-10.4); Platelet Count Result 173 k/mm3 (150-375); Red Blood Count 4.02 M/mm3 (4.2-5.4); Red Cell Distribution Width 13.2 % (11.5-14.5); White Blood Count 5.5 K/mm3 (4.5-10.0)
[2020-08-09 06:09] LABS: Anion Gap 4 mmol/L (8-16); Blood Urea Nitrogen 20 mg/dL (7-17); Calcium 8.4 mg/dL (8.4-10.2); Carbon Dioxide 26 mmol/L (22-30); Chloride 106 mmol/L (98-107); Estimated CRCL calculation 51 ml/min; Estimated Glomerular Filt Rate > 60; Glucose 91 mg/dL (65-105); Potassium 3.7 mmol/L (3.4-5.0); Sodium 136 mmol/L (137-145)
[2020-08-09 08:00] VITALS: BP 122/68; PULSE 101; PULSE 70; RESP 18; TEMP 36.1; O2SAT 97
[2020-08-09] MEDS: GABAPENTIN 400 MG CAPSULE 800 MG PO (09:17)
[2020-08-09] MEDS: FLUTICASONE PROPIONATE 0.05% NA SPR 16 GM BTL (*BKC) 1 SPRAY NASAL (09:17)
[2020-08-09] MEDS: PANTOPRAZOLE 40 MG TABLET PO (09:18)
[2020-08-09] MEDS: VITAMIN E 400 UNIT CAPSULE PO (09:18)
[2020-08-09] MEDS: CHOLECALCIFEROL 1,000 UNITS TABLET 1000 UNITS PO (09:18)
[2020-08-09] MEDS: VALSARTAN 80 MG TABLET PO (09:18)
--- NOTE | 2020-08-09 11:09 | PM.DS ---
DS: Admitting Diagnosis Admitting Diagnosis Admitting Diagnosis: fall DS: Discharge Diagnosis Discharge Diagnosis (1) Syncope: Qualifiers: Syncope type: unspecified Qualified Code(s): R55 - Syncope and collapse Code(s): R55 - Syncope and collapse Status: Acute Assessment and Plan: 08/08/20 13:59 Patient is 85-year-old female with a history of recurrent falls patient was brought to emergency depart as patient had slipped from sofa to the floor EMS was called and patient was brought to emergency depart for syncopal episode, patient has no recollection of the event, recently patient presented with similar symptoms and workup was negative, patient is clinically stable according to physical therapy see was able to walk with her walker from bed to the commode and to the chair with minimal assist, will continue PT OT patient will benefit going home with home health and physical therapy. I spoke with the patient's son and he is in agreement with the plan. 08/07 yesterday during the day patient participate in physical therapy and was doing reasonably well however in the afternoon patient was not able to participate in physical therapy and was requiring more assistance similarly today patient is requiring more assistance with physical therapy and rehab, patient will benefit going home with physical therapy upon discharge, will continue to monitor the patient. 08/08 currently patient is participating in physical therapy and requiring assist with ADL, plan was to possibly discharge the patient however patient had a 3 loose BM, blood pressure is soft will hold patient blood pressure medication, will continue physical therapy and will continue to monitor the patient, patient is on laxative will hold and monitor patient and further recommendation to follow (2) Falls: Code(s): W19.XXXA - Unspecified fall, initial encounter Status: Acute Assessment and Plan: Most likely secondary debility will continue PT OT patient will benefit with physical therapy as outpatient DS: Summary Hospital Course Reason for hospitalization: Patient is 85-year-old female with a history of recurrent falls patient was brought to emergency depart as patient had slipped from sofa to the floor EMS was called and patient was brought to emergency depart for syncopal episode, patient has no recollection of the event, recently patient presented with similar symptoms and workup was negative, patient is clinically stable according to physical therapy see was able to walk with her walker from bed to the commode and to the chair with minimal assist, will continue PT OT patient will benefit going home with home health and physical therapy. I spoke with the patient's son and he is in agreement with the plan. Chief Complaint: Fall Hospital Course: Patient is 85-year-old female with a history of recurrent falls patient was brought to emergency depart as patient had slipped from sofa to the floor EMS was called and patient was brought to emergency depart for syncopal episode, patient has no recollection of the event, recently patient presented with similar symptoms and workup was negative, patient is clinically stable according to physical therapy see was able to walk with her walker from bed to the commode and to the chair with minimal assist, will continue PT OT patient will benefit going home with home health and physical therapy. I spoke with the patient's son and he is in agreement with the plan. 08/07 yesterday during the day patient participate in physical therapy and was doing reasonably well however in the afternoon patient was not able to participate in physical therapy and was requiring more assistance similarly today patient is requiring more assistance with physical therapy and rehab, patient will benefit going home with physical therapy upon discharge, will continue to monitor the patient. 08/08 currently patient is participating in physical t
[2020-08-09] MEDS: ACETAMINOPHEN 325 MG TABLET 650 MG PO (11:21)
--- NOTE | 2020-08-09 11:54 | PC.NURSE ---
After going over discharge with patient, son, Medardo was called and informed of medication changes as well.
[2020-08-09 12:00] VITALS: PULSE 84
== END 2020-08-09 14:25 | disposition home or self-care (01) | DRG 312 ==
LOC: ANHED 23:49 → ANH3MEDSUR 08-06 01:10 → ANHIMU 08-06 07:32 → ANH3MED 08-06 18:20
PROVIDERS: Emergency Medicine; Admitting Provider Internal Medicine; Emergency Provider Emergency Medicine; PCP Internal Medicine; Visit Provider Family Medicine
DX: R55 Syncope and collapse (principal); W01.0XXA Fall on same level from slipping, tripping and stumbling without subsequent striking against object, initial encounter; I10 Essential (primary) hypertension; J45.909 Unspecified asthma, uncomplicated; K21.9 Gastro-esophageal reflux disease without esophagitis; E78.5 Hyperlipidemia, unspecified; M19.90 Unspecified osteoarthritis, unspecified site; M81.0 Age-related osteoporosis without current pathological fracture; M41.9 Scoliosis, unspecified; Z96.653 Presence of artificial knee joint, bilateral; Z85.42 Personal history of malignant neoplasm of other parts of uterus; Z90.710 Acquired absence of both cervix and uterus
CPT/HCPCS: 36415; 70450; 80048; 83735; 84484; 85025; 85027; 92526; 92610; 92611; 93005; 97110; 97116; 97161; 97165; 97530; 97535; 99285; A9270; G0378

== ENCOUNTER 2020-11-06 21:56 | Observation (INO) | payer MEDICARE, SELFPAY ==
--- NOTE | ~2020-11-06 | CT_ITS ---
EXAMINATION: CTA chest PE protocol DATE: 11/07/2020 13:37 INDICATION: Syncope. TECHNIQUE: Computed tomography angiography (CTA) of the chest was performed with 100 mL Omnipaque-350 intravenous contrast timed to evaluate the pulmonary arteries. Coronal maximum intensity projection 3D-reconstructions were created by the technologist. Automated exposure control and iterative reconst ruction technique were employed. The dose-length product was 297.41 mGy-cm. COMPARISON: Chest CT 09/07/2011 FINDINGS: The lungs demonstrate mild atelectasis. A calcified right lung nodule and calcified right h ilar lymph nodes are consistent with old granulomatous disease. No pleural effusion. The heart size i s normal. There are coronary artery calcifications. No pericardial effusion. There is no pulmonary em bolus. There is a moderate-sized sliding hiatal hernia. There are gallstones in the gallbladder, whic h is normal in size. There are multiple old healed bilateral rib fractures. There is thoracic dextros coliosis, kyphosis, and moderate spondylosis. There are chronic compression fractures of T5, T8, and T10. There is a chronic burst fracture of T11. IMPRESSION: 1. No pulmonary embolus. Sensitivity is severely decreased by motion artifact. 2. Moderate-sized sliding hiatal hernia. Reviewed, dictated and finalized at location A.
--- NOTE | ~2020-11-06 | CT_ITS ---
EXAMINATION: CT brain wo con DATE: 11/06/2020 22:23 INDICATION: Syncope TECHNIQUE: Computed tomography (CT) of the head was performed without intravenous contrast. Sagittal and coronal reconstructions were performed. The mA was adjusted according to patient size. Iterative reconstruction technique was employed. The dose-length product was 681.00 mGy-cm. COMPARISON: head CT dated 08/06/2020 FINDINGS: Small to moderate-sized region of encephalomalacia in the left occipital lobe consistent with chronic infarct. Small old lacunar infarct at the right basal ganglia. No acute intracranial hemorrhage, acu te infarction or abnormal extra axial fluid collection. There is moderate to severe scattered white m atter hypoattenuation consistent with chronic small vessel ischemic disease. Symmetric prominence of the sulci and ventricles consistent with moderate age-appropriate diffuse cerebral volume loss. No ma ss/mass effect. Changes of bilateral intraocular lens replacement. The orbits, paranasal sinuses and mastoid air cells are normal. Intracranial calcified cerebral atherosclerosis is noted. IMPRESSION: 1. No acute intracranial process. 2. Small to moderate-sized chronic left occipital lobe infarct and small right basal ganglia old lacu alma infarct. 3. Age-related changes including moderate diffuse on loss and moderate to severe scattered white linsey er hypoattenuation consistent with chronic small vessel schema disease. Reviewed, dictated and finalized at location A. IMPRESSION: 1. No acute intracranial process. 2. Small to moderate-sized chronic left occipital lobe infarct and small right basal ganglia old lacunar infarct. 3. Age-related changes including moderate diffuse on loss and moderate to sever e scattered white matter hypoattenuation consistent with chronic small vessel s shena disease.
--- NOTE | ~2020-11-06 | XR_ITS ---
EXAMINATION: XR chest 1V portable DATE: 11/06/2020 22:28 INDICATION: Transient alteration of awareness TECHNIQUE: frontal view of the chest was obtained. COMPARISON: Chest radiograph dated 07/21/2020 FINDINGS: Patient is rotated towards the left. Small lung volumes. Chronic elevation of the left hemidiaphragm with persistent linear discoid atelectasis/scarring at the bilateral lung bases. No other airspace op acities, pulmonary edema, pleural effusion or pneumothorax. Heart size is normal. Multiple old bilate ral rib fracture deformities at least one of which on the left remains nonunited. IMPRESSION: 1. Unchanged linear discoid atelectasis/scarring at the bilateral lung bases. Reviewed, dictated and finalized at location A.
--- NOTE | ~2020-11-06 | XR_ITS ---
EXAMINATION: XR barium swallow modified EXAM DATE: 11/08/2020 11:46 INDICATION: coughing when eating . TECHNIQUE: Modified barium esophagram was performed by speech pathologist with radiologist Dr. Shade Diop present to administered fluoroscopy. Speech pathologist administered barium in varying consis tencies as per speech pathologist documentation. This was recorded on tape. There was total fluorosc opic time of 3.2 minutes. The DAP for this procedure was 4.1 Gycm2. A total of 2 images sent to PAC S from the exam. FINDINGS: Oral stage: Adequate function. Pharyngeal phase: Reduced laryngeal elevation, tongue base retraction, vallecular pooling. Laryngeal penetration: Small, ejected. Aspiration: None. Laryngeal sensitivity: Inconsistent. IMPRESSION: Oral feedings recommended as per speech pathologist. Please refer to speech pathologist findings and specific feeding recommendations. Reviewed, dictated and finalized at location A.
[2020-11-06 21:44] VITALS: PULSE 62; RESP 15; TEMP 36.6; O2SAT 97
--- NOTE | 2020-11-06 21:51 | ED.SYNCOPE ---
HPI - Syncope General Chief Complaint: Syncope Stated Complaint: syncope Source: family and EMS Mode of arrival: EMS Limitations: dementia History of Present Illness HPI narrative: Patient is an 85-year-old female with a history of hypertension, hyperlipidemia, heart failure, recurrent falls who presents for evaluation of a syncopal event. History is obtained from EMS as patient is alert and oriented to person, place, not to time. When asked time, she states it is May 1960. Patient is able to identify she has at [facility] and able to state her name. Patient is currently denying any pain in the room. Reportedly, patient had a witnessed syncopal event while going to the bathroom this evening. Patient states that she ambulated from her bed to the bathroom, where her son then witnessed her lose consciousness. It was reported that patient was unresponsive for 5 minutes per EMS. Glucose 150s for EMS. Stable vital signs. No seizure-like activity. Patient transported to this facility in stable condition. At the time of my assessment, patient is awake, alert, with stable vital signs. History is obviously limited secondary to her dementia. Patient son states that she took all of her evening medications. States that these episodes have happened in the past, however she appears to becoming weaker in general and has difficulty with the steps in the house. Patient son states he is unable to lift her most times. Related Data Home Medications Medication Instructions Recorded Confirmed vitamin E 400 unit PO DAILY 08/01/19 08/06/20 gabapentin 800 mg PO BID 10/04/19 08/06/20 valsartan 80 mg PO DAILY 10/04/19 08/06/20 pantoprazole 40 mg PO BID 10/19/19 08/06/20 donepezil 5 mg PO HS 07/21/20 08/06/20 hydrocodone-acetaminophen 1 tablet PO BID 07/21/20 08/06/20 trazodone 100 mg PO HS 07/21/20 08/06/20 Ventolin HFA 90 mcg INHALATION Q4H PRN 08/06/20 08/06/20 cholecalciferol (vitamin D3) 25 mcg PO DAILY 08/06/20 08/06/20 [Vitamin D3] montelukast 10 mg PO HS 08/06/20 08/06/20 Allergies Allergy/AdvReac Type Severity Reaction Status Date / Time CAYETANO Inhibitors Allergy Severe Unknown Verified 11/06/20 21:58 meperidine Allergy Unknown Unknown Verified 11/06/20 21:58 Sulfa (Sulfonamide Allergy Unknown Unknown Verified 11/06/20 21:58 Antibiotics) sulfanilamide Allergy Unknown Unknown Verified 11/06/20 21:58 sulfur dioxide Allergy Unknown Unknown Verified 11/06/20 21:58 Review of Systems Review of Systems: ROS unobtainable: Yes unobtainable due to mental status [facility] Past Medical History Medical History (Updated 11/07/20 @ 00:03 by Noreen Silverio MD) Asthma C2 cervical fracture Type 2 odontoid fracture sustained in fall 05/07/2016, requiring no cervical intervention. 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 Combined systolic and diastolic cardiac dysfunction Echocardiogram on 10/04/2019 showed a normal LV chamber, mildly reduced LV systolic function with an ejection fraction estimated at 50 to 55%, grade 1 diastolic dysfunction, hypokinesis of the basal inferior, mid inferior, and basal inferior lateral ramirez. Mild mitral valve and tricuspid valve regurgitation also noted. Essential hypertension GERD (gastroesophageal reflux disease) Hyperlipidemia (Unknown) Left scapula fracture (~07/2019) Secondary to fall. Multiple falls Osteoarthritis Osteoporosis (Unknown) Rib fractures History of bilateral rib fractures due to falls. Right rib fracture Scoliosis Uterine cancer Status post total hysterectomy. Surgical History Surgical History History of bilateral knee replacement History of hysterectomy For uterine cancer. Family History Family History Sibling Hypertension Family history of coronary artery disease Mother Hypertension Social History Social History (Reviewed 11/06
--- NOTE | 2020-11-06 21:58 | ECG_ITS ---
Measurements Intervals [place] Rate: 62 P: IA: 0 QRS: -12 QRSD: 80 T: 10 QT: 405 QTc: 413 Interpretive Statements SINUS RHYTHM DELAYED PRECORDIAL R/S TRANSITION INFERIOR INFARCT, AGE INDETERMINATE BASELINE ARTIFACT- I, II, III, AVR, AVF, V2-V6 ABNORMAL ECG Electronically Signed On 11-07-2020 6:57:37 CDT by Adam Wynn D.O.
[2020-11-06] MEDS: SODIUM CHLORIDE 0.9% IV 1,000 ML 999 ML IV CONT (22:05)
[2020-11-06 22:19] LABS: Basophils Absolute Auto 0.1 K/mm3 (0.0-0.1); Basophils Percent Auto 0.6 % (0.2-1.2); Eosinophils Absolute Auto 0.2 K/mm3 (0-0.3); Eosinophils Percent Auto 2.3 % (0-4.4); Hematocrit 43.8 % (37.0-47.0); Hemoglobin 14.1 g/dL (12.0-15.0); Immature Granulocyte Absolute 0.05 K/mm3 (0.00-0.031); Immature Granulocyte Percent A 0.6 % (0-0.5); Lymphocytes Absolute Auto 2.29 K/mm3 (0.9-3.2); Lymphocytes Percent Auto 29.6 % (18.3-44.2); Mean Corpuscular HGB Conc 32.2 g/dl (32-36); Mean Corpuscular Hemoglobin 30.3 pg (26-34); Mean Corpuscular Volume 94.2 fl (80-100); Monocytes Absolute Auto 0.5 K/mm3 (0.1-0.6); Monocytes Percent Auto 6.5 % (2.6-8.5); Neutrophils Absolute Auto 4.7 K/mm3 (1.3-6.7); Neutrophils Percent Auto 60.4 % (45.5-73.1); Platelet Count Result 194 k/mm3 (150-375); Red Blood Count 4.65 M/mm3 (4.2-5.4); Red Cell Distribution Width 12.4 % (11.5-14.5); White Blood Count 7.7 K/mm3 (4.5-10.0)
[2020-11-06 22:35] LABS: Prothrombin Time 12.8 Seconds (11.1-14.7)
[2020-11-06 22:37] LABS: Partial Thromboplastin Time 23.2 SECONDS (22.3-36.8)
[2020-11-06 22:41] LABS: Troponin I < 0.012 ng/mL (0.000-0.034)
[2020-11-06 22:43] LABS: D Dimer 0.94 ug/mL (<0.48)
[2020-11-06 22:45] LABS: Anion Gap 10 mmol/L (8-16); Blood Urea Nitrogen 14 mg/dL (7-17); Calcium 9.2 mg/dL (8.4-10.2); Carbon Dioxide 21 mmol/L (22-30); Chloride 102 mmol/L (98-107); Estimated Glomerular Filt Rate > 60; Glucose 102 mg/dL (65-105); Potassium 3.9 mmol/L (3.4-5.0); Sodium 133 mmol/L (137-145)
[2020-11-07] VITALS (11 sets, daily range): BP systolic 126–177; BP diastolic 61–90; PULSE 63–88; RESP 16–20; TEMP 36–36.4; O2SAT 94–97
[2020-11-07 01:12] LABS: Add Urine Microscopic? YES; Appearance Urine Clear (Clear); Bacteria Urine Trace /hpf; Bilirubin Urine Negative (Negative); Blood Urine 1+ (Negative); Color Urine Yellow (Yellow); Glucose Urine UA Negative (Negative); Ketones Urine Negative (Negative); Leukocyte Esterase Ur 1+ LEU/UL (Negative); Mucus Urine Few /lpf; Nitrate Urine Negative (Negative); Protein Urine Negative (Negative); RBC Urine 0-2 /hpf (0-2); Specific Grav Ur 1.009 (1.001-1.035); Urobilinogen Urine Negative mg/dL (<2.0); WBC Urine 16-20 /hpf
--- NOTE | 2020-11-07 11:53 | P.DS_ITS ---
DS: Admitting Diagnosis Admitting Diagnosis Admitting Diagnosis: syncope DS: Discharge Diagnosis Discharge Diagnosis (1) Vasovagal syncope: Code(s): R55 - Syncope and collapse Status: Acute Assessment and Plan: * patient stated that she has had multiple of these episodes * stated that normally happen when she is on the toilet * will get orthostatic blood pressures * labs and x-ray negative for infection * could possibly have a UTI however no complaints of UTI symptoms * it could be related to her trazodone since the patient did get her evening medicines before that event and her trazodone was just increased from 50 mg to 100 mg * blood pressure 177/82 upon arrival, this a.m. it was once 126/61 * PT and OT eval and treat (2) Falls: Code(s): W19.XXXA - Unspecified fall, initial encounter Status: Acute Assessment and Plan: * patient has had 2 documented falls over the last 3 months * patient's son according to the ED note states the patient has had this before * this is probably happening due to the patient using the restroom and vagal in down * fall precautions * bed alarm chair alarm (3) UTI (urinary tract infection): Code(s): N39.0 - Urinary tract infection, site not specified Status: Acute Assessment and Plan: * UA does shows some signs UTI with 0 white blood cell count of 16 to 20, and 1+ leuko esterase * culture is pending * will hold off on antibiotics for now since patient has no symptoms * wait for culture to be resulted * white blood cell count is 7.7 (4) GERD (gastroesophageal reflux disease): Qualifiers: Esophagitis presence: without esophagitis Qualified Code(s): K21.9 - Gastro-esophageal reflux disease without esophagitis Code(s): K21.9 - Gastro-esophageal reflux disease without esophagitis Status: Chronic Assessment and Plan: * continue home Protonix 40 mg p.o. b.i.d. (5) Asthma: Qualifiers: Asthma severity: mild Asthma persistence: intermittent Asthma complication type: uncomplicated Qualified Code(s): J45.20 - Mild intermittent asthma, uncomplicated Code(s): J45.909 - Unspecified asthma, uncomplicated Status: Chronic Assessment and Plan: * continue home Spiriva 2 puffs daily, singular 10 mg p.o. HS and albuterol inhaler Q 4 p.r.n. * lungs are clear to auscultation * patient is on room air (6) Alzheimer's dementia: Code(s): G30.9 - Alzheimer's disease, unspecified; F02.80 - Dementia in other diseases classified elsewhere without behavioral disturbance Status: Acute Assessment and Plan: * patient is alert and oriented x2 * continue patient's donepezil 5 mg p.o. at night * continue trazodone 100 mg p.o. at night * reorientation DS: Summary Time Spent with Patient Time attestation: Total time spent providing and/or coordinating discharge services: DS: Data Data Completed and Pending Labs on day of discharge: Labs from last 24 hours 11/07/20 11/06/20 11/06/20 00:07 22:11 22:11 WBC RBC Hgb Hct MCV MCH MCHC RDW Plt Count MPV Immature Gran % (Auto) Neut % (Auto) Lymph % (Auto) [place] % (Auto) Eos % (Auto)
--- NOTE | 2020-11-07 11:53 | PM.DS ---
DS: Admitting Diagnosis Admitting Diagnosis Admitting Diagnosis: syncope DS: Discharge Diagnosis Discharge Diagnosis (1) Vasovagal syncope: Code(s): R55 - Syncope and collapse Status: Acute Assessment and Plan: patient stated that she has had multiple of these episodes stated that normally happen when she is on the toilet will get orthostatic blood pressures labs and x-ray negative for infection could possibly have a UTI however no complaints of UTI symptoms it could be related to her trazodone since the patient did get her evening medicines before that event and her trazodone was just increased from 50 mg to 100 mg blood pressure 177/82 upon arrival, this a.m. it was once 126/61 PT and OT eval and treat (2) Falls: Code(s): W19.XXXA - Unspecified fall, initial encounter Status: Acute Assessment and Plan: patient has had 2 documented falls over the last 3 months patient's son according to the ED note states the patient has had this before this is probably happening due to the patient using the restroom and vagal in down fall precautions bed alarm chair alarm (3) UTI (urinary tract infection): Code(s): N39.0 - Urinary tract infection, site not specified Status: Acute Assessment and Plan: UA does shows some signs UTI with 0 white blood cell count of 16 to 20, and 1+ leuko esterase culture is pending will hold off on antibiotics for now since patient has no symptoms wait for culture to be resulted white blood cell count is 7.7 (4) GERD (gastroesophageal reflux disease): Qualifiers: Esophagitis presence: without esophagitis Qualified Code(s): K21.9 - Gastro-esophageal reflux disease without esophagitis Code(s): K21.9 - Gastro-esophageal reflux disease without esophagitis Status: Chronic Assessment and Plan: continue home Protonix 40 mg p.o. b.i.d. (5) Asthma: Qualifiers: Asthma severity: mild Asthma persistence: intermittent Asthma complication type: uncomplicated Qualified Code(s): J45.20 - Mild intermittent asthma, uncomplicated Code(s): J45.909 - Unspecified asthma, uncomplicated Status: Chronic Assessment and Plan: continue home Spiriva 2 puffs daily, singular 10 mg p.o. HS and albuterol inhaler Q 4 p.r.n. lungs are clear to auscultation patient is on room air (6) Alzheimer's dementia: Code(s): G30.9 - Alzheimer's disease, unspecified; F02.80 - Dementia in other diseases classified elsewhere without behavioral disturbance Status: Acute Assessment and Plan: patient is alert and oriented x2 continue patient's donepezil 5 mg p.o. at night continue trazodone 100 mg p.o. at night reorientation DS: Summary Time Spent with Patient Time attestation: Total time spent providing and/or coordinating discharge services: DS: Data Data Completed and Pending Labs on day of discharge: Labs from last 24 hours 11/07/20 11/06/20 11/06/20 00:07 22:11 22:11 WBC RBC Hgb Hct MCV MCH MCHC RDW Plt Count MPV Immature Gran % (Auto) Neut % (Auto) Lymph % (Auto) [place] % (Auto) Eos % (Auto) Baso % (Auto) Lymph # (Auto) [place] # (Auto) Eos # (Auto) Baso # (Auto) Abs Immat Gran (auto) Absolute Neuts (auto) Absolute Nucleated RBC Nucleated RBC % PT 12.8 INR 1.0 APTT 23.2 D-Dimer 0.94 H Sodium 133 L Potassium 3.9 Chloride 102 Carbon Dioxide 21 L Anion Gap 10 BUN 14 D Creatinine 0.70 Estim Creat Clear Calc Not Reportable Estimated GFR > 60 Glucose 102 Calcium 9.2 Troponin I < 0.012 Urine Color Yellow Urine Appearance Clear Urine pH 6.0 Ur Specific [place] 1.009 Urine Protein Negative Urine Glucose (UA) Negative Urine Ketones Negative U
--- NOTE | 2020-11-07 12:10 | PM.IMHP ---
H&P: HPI History of Present Illness Date/Time: 11/07/20 10:30 Chief Complaint: syncope Narrative: patient is an 85-year-old female with a history of recurrent falls, dementia Alzheimer's, and asthma who presented to the ED last night with her son who stated the patient went to the bathroom and passed out. Patient is a poor historian and most of HPI and review of systems was taken from the ER note. According the ER note the patient was on the toilet and became unconscious For 5 minutes. Currently the patient states that she did fall and she has fallen twice she does not know why she is falling. I asked the patient if she bears down at all when she is toileting she said she does not. However according to the chart patient has became unconscious before while being on the toilet. Patient is a and O times 1-2 she can tell me her name and where she is at however she told me that the month was May. Patient does have a cough she said that started about 3 months ago she does not know about sputum she denies swelling in her legs or pain. Patient also denies chest pain, shortness of breath, nausea, vomiting, abdominal pain, lightheadedness, dizziness, numbness and tingling, Urinary dysfunction including frequency urgency, or abnormal swelling. I did speak with her son Medardo who states that he is there with her from majority of the time he checks in with her at 4:30 p.m. and again at 6:00 p.m. 8:00 p.m. and then 10:00 p.m. where he stays at night. He did state that this is the 1st time she has never passed out on the toilet however 3 months ago she did fall. He said she had a similar episode where she passed out about 6 weeks ago and he checked on her however in the morning she was fine it was also stated that this patient has people that comes in during the day and at night he stays with her. He does say that she is very sedentary in life will not get up states in the chair and watches TV mostly. He did say that she has had CVAs in the past in that she is getting confused and does not make much that in talks in short sentences. I did ask him about the cough that I had noticed and he had said that she has had this cough for a while and that he she has a hard time swallowing. I did talk to the son about possible placement of this patient due to her living on her own. He became very defensive in nature and stated that he would like her to come home I did ask him if he needed any other support and he said that he did not and that he would just call EMS when he needed help. Review of Systems Review of Systems: All systems reviewed & are unremarkable except as noted in HPI and below PMFSH Past Medical History Medical History Asthma C2 cervical fracture Type 2 odontoid fracture sustained in fall 05/07/2016, requiring no cervical intervention. 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 Combined systolic and diastolic cardiac dysfunction Echocardiogram on 10/04/2019 showed a normal LV chamber, mildly reduced LV systolic function with an ejection fraction estimated at 50 to 55%, grade 1 diastolic dysfunction, hypokinesis of the basal inferior, mid inferior, and basal inferior lateral ramirez. Mild mitral valve and tricuspid valve regurgitation also noted. Essential hypertension GERD (gastroesophageal reflux disease) Hyperlipidemia (Unknown) Left scapula fracture (~07/2019) Secondary to fall. Multiple falls Osteoarthritis Osteoporosis (Unknown) Rib fractures History of bilateral rib fractures due to falls. Right rib fracture Scoliosis Uterine cancer Status post total hysterectomy. Surgical History Surgical History History of bilateral knee replacement History of hysterectomy For uterine cancer. Family History Family History Sibling Hypertension Family h
--- NOTE | 2020-11-07 13:34 | PC.NURSE ---
pt transported to CT at 1315
--- NOTE | 2020-11-07 13:41 | PC.NURSE ---
pt returned to unit from CT
[2020-11-07] MEDS: CHOLECALCIFEROL 1,000 UNITS TABLET 1000 UNITS PO (15:05)
[2020-11-07] MEDS: VALSARTAN 80 MG TABLET PO (15:05)
[2020-11-07] MEDS: PANTOPRAZOLE 40 MG TABLET PO (17:25)
[2020-11-07] MEDS: DONEPEZIL HCL 5 MG TABLET PO (21:02)
[2020-11-07] MEDS: MONTELUKAST SODIUM 10 MG TABLET PO (21:02)
[2020-11-07] MEDS: traZODone HCL 50 MG TABLET 100 MG PO (21:02)
[2020-11-08 04:18] VITALS: PULSE 78
[2020-11-08 04:49] VITALS: BP 173/78; PULSE 89; RESP 18; TEMP 36.1; O2SAT 94
[2020-11-08 05:49] LABS: Basophils Percent Auto 0.4 % (0.2-1.2); Eosinophils Absolute Auto 0.1 K/mm3 (0-0.3); Eosinophils Percent Auto 1.4 % (0-4.4); Hematocrit 43.3 % (37.0-47.0); Hemoglobin 14.9 g/dL (12.0-15.0); Immature Granulocyte Absolute 0.05 K/mm3 (0.00-0.031); Immature Granulocyte Percent A 0.6 % (0-0.5); Lymphocytes Absolute Auto 1.47 K/mm3 (0.9-3.2); Lymphocytes Percent Auto 18.9 % (18.3-44.2); Mean Corpuscular HGB Conc 34.4 g/dl (32-36); Mean Corpuscular Hemoglobin 30.1 pg (26-34); Mean Corpuscular Volume 87.5 fl (80-100); Monocytes Absolute Auto 0.5 K/mm3 (0.1-0.6); Monocytes Percent Auto 6.4 % (2.6-8.5); Neutrophils Absolute Auto 5.6 K/mm3 (1.3-6.7); Neutrophils Percent Auto 72.3 % (45.5-73.1); Platelet Count Result 214 k/mm3 (150-375); Red Blood Count 4.95 M/mm3 (4.2-5.4); Red Cell Distribution Width 11.9 % (11.5-14.5); White Blood Count 7.8 K/mm3 (4.5-10.0)
[2020-11-08 06:04] LABS: Alanine Aminotransferase 14 U/L (4-35); Albumin Level 4.1 g/dL (3.5-5.1); Alkaline Phosphatase 65 U/L (38-126); Anion Gap 9 mmol/L (8-16); Aspartate Amino Transferase 26 U/L (14-36); Bilirubin,Total 0.9 mg/dL (0.2-1.3); Blood Urea Nitrogen 7 mg/dL (7-17); Calcium 9.3 mg/dL (8.4-10.2); Carbon Dioxide 23 mmol/L (22-30); Chloride 105 mmol/L (98-107); Estimated Glomerular Filt Rate > 60; Glucose 100 mg/dL (65-105); Potassium 3.6 mmol/L (3.4-5.0); Sodium 137 mmol/L (137-145)
[2020-11-08] MEDS: CHOLECALCIFEROL 1,000 UNITS TABLET 1000 UNITS PO (09:23)
[2020-11-08] MEDS: PANTOPRAZOLE 40 MG TABLET PO (09:23)
[2020-11-08] MEDS: VALSARTAN 80 MG TABLET PO (09:23)
--- NOTE | 2020-11-08 10:02 | PCSTNOTE ---
Please refer to the Bedside Swallow Evaluation in the EMR. Please note, silent aspiration cannot be ruled out at bedside.
[2020-11-08 12:00] VITALS: PULSE 104
--- NOTE | 2020-11-08 12:30 | PCSTNOTE ---
Please refer to the Bedside Swallow Evaluation in the EMR. Please note, silent aspiration cannot be ruled out at bedside.
--- NOTE | 2020-11-08 12:39 | P.DS_ITS ---
DS: Admitting Diagnosis Admitting Diagnosis Admitting Diagnosis: syncope DS: Discharge Diagnosis Discharge Diagnosis (1) Vasovagal syncope: Code(s): R55 - Syncope and collapse Status: Acute Assessment and Plan: * patient stated that she has had multiple of these episodes * stated that normally happen when she is on the toilet * will get orthostatic blood pressures * labs and x-ray negative for infection * could possibly have a UTI however no complaints of UTI symptoms * it could be related to her trazodone since the patient did get her evening medicines before that event and her trazodone was just increased from 50 mg to 100 mg * blood pressure 177/82 upon arrival, this a.m. it was once 173/78 * PT and OT eval and treat (2) Falls: Code(s): W19.XXXA - Unspecified fall, initial encounter Status: Acute Assessment and Plan: * patient has had 2 documented falls over the last 3 months * patient's son according to the ED note states the patient has had this before * this is probably happening due to the patient using the restroom and vagal in down * fall precautions * bed alarm chair alarm (3) UTI (urinary tract infection): Code(s): N39.0 - Urinary tract infection, site not specified Status: Acute Assessment and Plan: * UA does shows some signs UTI with 0 white blood cell count of 16 to 20, and 1+ leuko esterase * culture is pending * will hold off on antibiotics for now since patient has no symptoms * wait for culture to be resulted * white blood cell count is 7.7 (4) GERD (gastroesophageal reflux disease): Qualifiers: Esophagitis presence: without esophagitis Qualified Code(s): K21.9 - Gastro-esophageal reflux disease without esophagitis Code(s): K21.9 - Gastro-esophageal reflux disease without esophagitis Status: Chronic Assessment and Plan: * continue home Protonix 40 mg p.o. b.i.d. (5) Asthma: Qualifiers: Asthma complication type: uncomplicated Asthma persistence: intermittent Asthma severity: mild Qualified Code(s): J45.20 - Mild intermittent asthma, uncomplicated Code(s): J45.909 - Unspecified asthma, uncomplicated Status: Chronic Assessment and Plan: * continue home Spiriva 2 puffs daily, singular 10 mg p.o. HS and albuterol inhaler Q 4 p.r.n. * lungs are clear to auscultation * patient is on room air (6) Alzheimer's dementia: Code(s): G30.9 - Alzheimer's disease, unspecified; F02.80 - Dementia in other diseases classified elsewhere without behavioral disturbance Status: Acute Assessment and Plan: * patient is alert and oriented x2 * continue patient's donepezil 5 mg p.o. at night * continue trazodone 100 mg p.o. at night * reorientation DS: Summary Hospital Course Hospital Course: Patient is an 85-year-old female with a history of recurrent falls, dementia Alzheimer's, and asthma who presented to the ED last night with her son who stated the patient went to the bathroom and passed out. Patient is a poor historian and most of HPI and review of systems was taken from the ER note. since admission patient was worked up for PE due to elevated D-dimer orthostatic blood pressures and aspiration. Daily blood work was normal both days. PE was negative on the CTA. Orthostatics were negative. Urine culture to come back with gram negative bacilli isolated. Patient will be DC did
--- NOTE | 2020-11-08 12:39 | PM.DS ---
DS: Admitting Diagnosis Admitting Diagnosis Admitting Diagnosis: syncope DS: Discharge Diagnosis Discharge Diagnosis (1) Vasovagal syncope: Code(s): R55 - Syncope and collapse Status: Acute Assessment and Plan: patient stated that she has had multiple of these episodes stated that normally happen when she is on the toilet will get orthostatic blood pressures labs and x-ray negative for infection could possibly have a UTI however no complaints of UTI symptoms it could be related to her trazodone since the patient did get her evening medicines before that event and her trazodone was just increased from 50 mg to 100 mg blood pressure 177/82 upon arrival, this a.m. it was once 173/78 PT and OT eval and treat (2) Falls: Code(s): W19.XXXA - Unspecified fall, initial encounter Status: Acute Assessment and Plan: patient has had 2 documented falls over the last 3 months patient's son according to the ED note states the patient has had this before this is probably happening due to the patient using the restroom and vagal in down fall precautions bed alarm chair alarm (3) UTI (urinary tract infection): Code(s): N39.0 - Urinary tract infection, site not specified Status: Acute Assessment and Plan: UA does shows some signs UTI with 0 white blood cell count of 16 to 20, and 1+ leuko esterase culture is pending will hold off on antibiotics for now since patient has no symptoms wait for culture to be resulted white blood cell count is 7.7 (4) GERD (gastroesophageal reflux disease): Qualifiers: Esophagitis presence: without esophagitis Qualified Code(s): K21.9 - Gastro-esophageal reflux disease without esophagitis Code(s): K21.9 - Gastro-esophageal reflux disease without esophagitis Status: Chronic Assessment and Plan: continue home Protonix 40 mg p.o. b.i.d. (5) Asthma: Qualifiers: Asthma complication type: uncomplicated Asthma persistence: intermittent Asthma severity: mild Qualified Code(s): J45.20 - Mild intermittent asthma, uncomplicated Code(s): J45.909 - Unspecified asthma, uncomplicated Status: Chronic Assessment and Plan: continue home Spiriva 2 puffs daily, singular 10 mg p.o. HS and albuterol inhaler Q 4 p.r.n. lungs are clear to auscultation patient is on room air (6) Alzheimer's dementia: Code(s): G30.9 - Alzheimer's disease, unspecified; F02.80 - Dementia in other diseases classified elsewhere without behavioral disturbance Status: Acute Assessment and Plan: patient is alert and oriented x2 continue patient's donepezil 5 mg p.o. at night continue trazodone 100 mg p.o. at night reorientation DS: Summary Hospital Course Hospital Course: Patient is an 85-year-old female with a history of recurrent falls, dementia Alzheimer's, and asthma who presented to the ED last night with her son who stated the patient went to the bathroom and passed out. Patient is a poor historian and most of HPI and review of systems was taken from the ER note. since admission patient was worked up for PE due to elevated D-dimer orthostatic blood pressures and aspiration. Daily blood work was normal both days. PE was negative on the CTA. Orthostatics were negative. Urine culture to come back with gram negative bacilli isolated. Patient will be DC did to [facility] for rehab. Patient denies any complaints today. Patient was also worked up for aspiration pneumonia in which a barium swallow was performed which showed patient was able to control her intake however speech does recommend a mildly nectar thick liquids with a soft bite size meals. Status at Discharge Functional status at discharge: independent ambulation Overall status at discharge: patient is back to baseline Time Spent with Patient Time attestat
== END 2020-11-08 17:00 ==
LOC: ANHED 11-07 00:03 → ANH2MED 11-07 02:08
PROVIDERS: Nurse Practitioner; Admitting Provider Internal Medicine; Emergency Provider Emergency Medicine; PCP Internal Medicine; Visit Provider Internal Medicine
DX: R55 Syncope and collapse (principal); N39.0 Urinary tract infection, site not specified; W19.XXXA Unspecified fall, initial encounter; I11.0 Hypertensive heart disease with heart failure; I50.40 Unspecified combined systolic (congestive) and diastolic (congestive) heart failure; R05 Cough; E78.5 Hyperlipidemia, unspecified; J45.909 Unspecified asthma, uncomplicated; K21.9 Gastro-esophageal reflux disease without esophagitis; M19.90 Unspecified osteoarthritis, unspecified site; G30.9 Alzheimer's disease, unspecified; F02.80 Dementia in other diseases classified elsewhere, unspecified severity, without behavioral disturbance, psychotic disturbance, mood disturbance, and anxiety; I36.1 Nonrheumatic tricuspid (valve) insufficiency; I34.0 Nonrheumatic mitral (valve) insufficiency; Z85.42 Personal history of malignant neoplasm of other parts of uterus; Z91.81 History of falling; Z87.891 Personal history of nicotine dependence
CPT/HCPCS: 36415; 51701; 70450; 71045; 71275; 80048; 80053; 81001; 83735; 84484; 85025; 85380; 85610; 85730; 87077; 87086; 87088; 87186; 92610; 92611; 93005; 96360; 97161; 97165; 97530; 97535; 99285; A9270; G0378; J7030; Q9967

== ENCOUNTER 2020-11-25 20:38 | Observation (INO) | payer MEDICARE, SELFPAY ==
--- NOTE | ~2020-11-25 | CT_ITS ---
EXAMINATION: CT brain wo con DATE: 11/27/2020 20:10 INDICATION: Fall. TECHNIQUE: Computed tomography (CT) of the head was performed without intravenous contrast. The mA wa s adjusted according to patient size. Iterative reconstruction technique was employed. The dose-lengt h product was 605.33 mGy-cm. COMPARISON: Head CT 11/25/2020 FINDINGS: There is an old infarct in left occipital lobe. There are scattered areas of low attenuatio n in the cerebral white matter. There is no intracranial hemorrhage, acute infarction, or abnormal in tracranial mass lesion. The ventricles are normal in size. There are likely changes of ocular lens re placement surgeries. There is mild mucosal thickening in the ethmoid sinuses. The mastoid air cells a re normal. IMPRESSION: 1. 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 2. Stable extensive nonspecific cerebral white matter disease, which likely represents chronic small vessel ischemic disease. Reviewed, dictated and finalized at location A. IMPRESSION: 1. 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 2. Stable extensive nonspecific cerebral white matter disease, which likely rep resents chronic small vessel ischemic disease.
--- NOTE | ~2020-11-25 | XR_ITS ---
EXAMINATION: XR chest 1V portable DATE: 11/25/2020 22:34 INDICATION: Weakness. Unresponsive. TECHNIQUE: A single frontal view of the chest was obtained. COMPARISON: Chest single view 11/06/2020, chest CT 11/07/2020 FINDINGS: There is chronic elevation of left hemidiaphragm. There is mild atelectasis in the lower richard ng zones. A calcified right lung nodule is consistent with old granulomatous disease. No pleural effu yasmine or pneumothorax. The heart size is normal. There are multiple old bilateral rib fractures. There is a chronic fracture deformity of left scapula. There is a moderate-sized hiatal hernia. IMPRESSION: 1. Mild atelectasis in the lower lung zones. 2. Moderate-sized hiatal hernia. Reviewed, dictated and finalized at location A.
--- NOTE | ~2020-11-25 | CT_ITS ---
EXAMINATION: CT brain wo con DATE: 11/25/2020 22:52 INDICATION: Confusion. Altered mental status. TECHNIQUE: Computed tomography (CT) of the head was performed without intravenous contrast. The mA wa s adjusted according to patient size. Iterative reconstruction technique was employed. The dose-lengt h product was 1210.67 mGy-cm. COMPARISON: Head CT 11/06/2020 FINDINGS: There is an old infarct in left occipital lobe. There are scattered areas of low attenuatio n in the cerebral white matter. There is no intracranial hemorrhage, acute infarction, or abnormal in tracranial mass lesion. The ventricles are normal in size. There are likely changes of ocular lens re placement surgeries. The mastoid air cells are normal. The paranasal sinuses are clear. IMPRESSION: 1. Old infarct in the left occipital lobe. 2. Stable extensive nonspecific cerebral white matter disease, which likely represents chronic small vessel ischemic disease. Reviewed, dictated and finalized at location A. IMPRESSION: 1. Old infarct in the left occipital lobe. 2. Stable extensive nonspecific cerebral white matter disease, which likely rep resents chronic small vessel ischemic disease.
[2020-11-25 20:50] VITALS: BP 101/71; PULSE 89; RESP 19; TEMP 36.1; O2SAT 100
[2020-11-25 21:16] VITALS: BP 102/66; PULSE 91; RESP 24
[2020-11-25 22:01] VITALS: BP 105/66; PULSE 94; RESP 15; O2SAT 96
--- NOTE | 2020-11-25 22:22 | ECG_ITS ---
Measurements Intervals [place] Rate: 88 P: 13 VT: 178 QRS: -15 QRSD: 72 T: 15 QT: 346 QTc: 420 Interpretive Statements SINUS RHYTHM BORDERLINE R WAVE PROGRESSION, ANTERIOR LEADS BASELINE ARTIFACT- I, II, AVR, AVF, V1 BORDERLINE ECG Electronically Signed On 11-26-2020 7:35:19 CDT by Adam Wynn D.O.
--- NOTE | 2020-11-25 22:36 | PC.NURSE ---
Pt to CT at this time.
[2020-11-25 22:54] VITALS: BP 120/75; PULSE 90; RESP 16; O2SAT 95
--- NOTE | 2020-11-25 23:00 | PC.NURSE ---
2 unsuccessful IV attempts, another nurse to try.
[2020-11-25 23:16] VITALS: BP 116/98; PULSE 87; RESP 22; O2SAT 96
[2020-11-25 23:42] LABS: Add Urine Microscopic? YES; Appearance Urine Cloudy (Clear); Bacteria Urine Trace /hpf; Bilirubin Urine Negative (Negative); Color Urine Amber (Yellow); Glucose Urine UA Negative (Negative); Ketones Urine Negative (Negative); Leukocyte Esterase Ur 3+ LEU/UL (Negative); Mucus Urine Rare /lpf; Nitrate Urine Negative (Negative); Protein Urine 1+ mg/dL (Negative); Specific Grav Ur 1.016 (1.001-1.035); Squamous Epithelial Cell Urine Moderate /hpf (Few); WBC Clumps Urine Present /HPF; WBC Urine >75 /hpf
[2020-11-25 23:45] LABS: Blood Urine Negative (Negative)
[2020-11-25] MEDS: SODIUM CHLORIDE 0.9% IV 1,000 ML 999 ML IV CONT (23:53)
[2020-11-26] VITALS (9 sets, daily range): BP systolic 100–149; BP diastolic 60–88; PULSE 72–96; RESP 14–20; TEMP 36.1–37.1; O2SAT 97–100; BMI 23.8
[2020-11-26 00:04] LABS: Basophils Absolute Auto 0.1 K/mm3 (0.0-0.1); Basophils Percent Auto 0.7 % (0.2-1.2); Eosinophils Absolute Auto 0.1 K/mm3 (0-0.3); Eosinophils Percent Auto 0.4 % (0-4.4); Hematocrit 48.8 % (37.0-47.0); Hemoglobin 15.9 g/dL (12.0-15.0); Immature Granulocyte Percent A 2.2 % (0-0.5); Lymphocytes Absolute Auto 1.51 K/mm3 (0.9-3.2); Lymphocytes Percent Auto 11.1 % (18.3-44.2); Mean Corpuscular HGB Conc 32.6 g/dl (32-36); Mean Corpuscular Hemoglobin 30.8 pg (26-34); Mean Corpuscular Volume 94.6 fl (80-100); Mean Platelet Volume 9.9 fl (7.4-10.4); Monocytes Absolute Auto 0.5 K/mm3 (0.1-0.6); Monocytes Percent Auto 3.8 % (2.6-8.5); Neutrophils Absolute Auto 11.1 K/mm3 (1.3-6.7); Neutrophils Percent Auto 81.8 % (45.5-73.1); Platelet Count Result 259 k/mm3 (150-375); Red Blood Count 5.16 M/mm3 (4.2-5.4); Red Cell Distribution Width 12.8 % (11.5-14.5); White Blood Count 13.6 K/mm3 (4.5-10.0)
[2020-11-26 00:19] LABS: Lactic Acid Reflex 2.7 mmol/L (0.7-2.1)
[2020-11-26 00:20] LABS: Alanine Aminotransferase 17 U/L (4-35); Albumin Level 3.8 g/dL (3.5-5.1); Alkaline Phosphatase 70 U/L (38-126); Anion Gap 10 mmol/L (8-16); Aspartate Amino Transferase 25 U/L (14-36); Bilirubin,Total 0.4 mg/dL (0.2-1.3); Blood Urea Nitrogen 20 mg/dL (7-17); Calcium 9.2 mg/dL (8.4-10.2); Carbon Dioxide 22 mmol/L (22-30); Chloride 102 mmol/L (98-107); Estimated CRCL calculation 35 ml/min; Estimated Glomerular Filt Rate 60; Glucose 108 mg/dL (65-110); Potassium 4.8 mmol/L (3.4-5.0); Sodium 134 mmol/L (137-145)
[2020-11-26 00:32] LABS: Troponin I < 0.012 ng/mL (0.000-0.034)
--- NOTE | 2020-11-26 00:32 | ED.GENADULT ---
HPI - General Adult General Chief complaint: Altered Mental Status Stated complaint: ams Time Seen by Provider: 11/25/20 22:05 History of Present Illness HPI narrative: Patient 85-year-old female presents the emergency department chief complaint of altered mental status. Patient's family noticed that today she was a little slower at the senior living this evening she was less responsive after she received a dose of [place] and when EMS arrived she had pinpoint pupils patient was given intranasal Narcan and had improvement in her mental status. The patient is a little bit more groggy than normal and the daughter reports that the patient is usually quite feisty and very conversant and is not her usual status. Patient has not had a fever. Related Data Home Medications Medication Instructions Recorded Confirmed valsartan 80 mg PO DAILY 10/04/19 11/07/20 pantoprazole 40 mg PO BID 10/19/19 11/07/20 donepezil 5 mg PO HS 07/21/20 11/07/20 hydrocodone-acetaminophen 1 tablet PO BID 07/21/20 11/07/20 trazodone 100 mg PO HS 07/21/20 11/07/20 Ventolin HFA 90 mcg INHALATION Q4H PRN 08/06/20 11/07/20 cholecalciferol (vitamin D3) 25 mcg PO DAILY 08/06/20 11/07/20 [Vitamin D3] montelukast 10 mg PO HS 08/06/20 11/07/20 Allergies Allergy/AdvReac Type Severity Reaction Status Date / Time CAYETANO Inhibitors Allergy Severe Unknown Verified 11/25/20 22:06 meperidine Allergy Unknown Unknown Verified 11/25/20 22:06 Sulfa (Sulfonamide Allergy Unknown Unknown Verified 11/25/20 22:06 Antibiotics) sulfanilamide Allergy Unknown Unknown Verified 11/25/20 22:06 sulfur dioxide Allergy Unknown Unknown Verified 11/25/20 22:06 Review of Systems Review of Systems: A 10 system review of systems was completed on the patient and is negative except for what is stated in the HPI. Nursing and ancillary documentation was reviewed. [facility] Past Medical History Medical History (Updated 11/26/20 @ 00:50 by Rui Walden MD) Asthma C2 cervical fracture Type 2 odontoid fracture sustained in fall 05/07/2016, requiring no cervical intervention. 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 Combined systolic and diastolic cardiac dysfunction Echocardiogram on 10/04/2019 showed a normal LV chamber, mildly reduced LV systolic function with an ejection fraction estimated at 50 to 55%, grade 1 diastolic dysfunction, hypokinesis of the basal inferior, mid inferior, and basal inferior lateral ramirez. Mild mitral valve and tricuspid valve regurgitation also noted. Essential hypertension GERD (gastroesophageal reflux disease) Hyperlipidemia (Unknown) Left scapula fracture (~07/2019) Secondary to fall. Multiple falls Osteoarthritis Osteoporosis (Unknown) Rib fractures History of bilateral rib fractures due to falls. Right rib fracture Scoliosis Uterine cancer Status post total hysterectomy. Surgical History Surgical History History of bilateral knee replacement History of hysterectomy For uterine cancer. Family History Family History Sibling Hypertension Family history of coronary artery disease Mother Hypertension Social History Social History Social History: The patient lives with her son in [place]. 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 Her son, Medardo, is her surrogate decision maker. She is listed as a DNR. She has a remote smoking history and quit in 1962. No alcohol or drug abuse. Smoking packs per day: 2 Smoking cigarettes per day: 40.0 Years smoked: 3 Smoking pack-years: 6.00 Smoking status: Former smoker Tobacco type: cigarettes Second hand tobacco smoke exposure: Yes Additional smoking assessment comments: she only smoked for 3 years Alcohol intake: never Substance use: never Substance
[2020-11-26] MEDS: SODIUM CHLORIDE 0.9% IV 1,000 ML 999 ML IV CONT (00:49)
--- NOTE | 2020-11-26 02:15 | ADMGEN ---
This patient, Mitra Verde, was admitted to Medical Room 348-01. Patient/family oriented to hospital policies and general routines including ID bracelet, bed and alarms, visiting hours, pain management, procedures, bathroom and other care routines, personal items, smoking policy, room service/diet, and visiting hours. Information on how to activate the Rapid Response Team has been discussed. Patient/Family are encouraged to report perceived risks to care and to ask questions if they do not understand what they are told or what they should do.
[2020-11-26] MEDS: SODIUM CHLORIDE 0.9% IV 1,000 ML 125 ML IV CONT (02:36)
[2020-11-26 03:04] LABS: Reflex Lactic Acid Yes or No Add Lactic
--- NOTE | 2020-11-26 03:09 | PM.IMHP ---
H&P: HPI History of Present Illness Date/Time: 11/26/20 03:09 Chief Complaint: confusion Narrative: Patient 85-year-old female presents the emergency department chief complaint of altered mental status. Patient's family noticed that today she was a little slower at the [facility] this evening she was less responsive. She was on hydrocodone and hence he was given a dose of Narcan intranasally by EMS since he had pinpoint pupil. She did have some improvement in her mental status following that. However she is still bit more groggy than normal as the daughter reports that patient is usually feisty and very conversant. She has not had any fever or chills she was not noted to be short of breath and she is not complaining of any chest pain. She is minimally conversive currently answers with okay most of the time. Most of the history is taken from the ED record and physician sign-out . ER evaluation noted to be having afebrile and mild leukocytosis along with UTI. There is also evidence of lactic acidosis on initial evaluation she was given IV fluids and Rocephin in the ER this. She is getting admitted for further evaluation and management. Review of Systems Review of Systems: ROS unobtainable: Yes unobtainable due to mental status Constitutional: Constitutional: Reports fatigue and Reports weakness Neurologic: Reports weakness Endocrine: Endocrine: Reports fatigue [facility] Past Medical History Medical History (Updated 11/26/20 @ 03:14 by Garry Post MD) Asthma C2 cervical fracture Type 2 odontoid fracture sustained in fall 05/07/2016, requiring no cervical intervention. 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 Combined systolic and diastolic cardiac dysfunction Echocardiogram on 10/04/2019 showed a normal LV chamber, mildly reduced LV systolic function with an ejection fraction estimated at 50 to 55%, grade 1 diastolic dysfunction, hypokinesis of the basal inferior, mid inferior, and basal inferior lateral ramirez. Mild mitral valve and tricuspid valve regurgitation also noted. Essential hypertension GERD (gastroesophageal reflux disease) Hyperlipidemia (Unknown) Left scapula fracture (~07/2019) Secondary to fall. Multiple falls Osteoarthritis Osteoporosis (Unknown) Rib fractures History of bilateral rib fractures due to falls. Right rib fracture Scoliosis Uterine cancer Status post total hysterectomy. Surgical History Surgical History History of bilateral knee replacement History of hysterectomy For uterine cancer. Family History Family History Sibling Hypertension Family history of coronary artery disease Mother Hypertension Social History Social History Social History: The patient lives with her son in [place]. 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 Her son, Medardo, is her surrogate decision maker. She is listed as a DNR. She has a remote smoking history and quit in 1962. No alcohol or drug abuse. 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
[2020-11-26 05:07] LABS: Lactic Acid 1.8 mmol/L (0.7-2.1)
[2020-11-26] MEDS: ENOXAPARIN 40 MG/0.4 ML SYRINGE SUB-Q (08:46)
[2020-11-26] MEDS: VALSARTAN 80 MG TABLET PO (08:46)
[2020-11-26] MEDS: POTASSIUM CHLORIDE 20 MEQ PACKET (FOR LIQUID) PO (08:46)
[2020-11-26] MEDS: CHOLECALCIFEROL 1,000 UNITS TABLET 1000 UNITS PO (08:46)
[2020-11-26] MEDS: PANTOPRAZOLE 40 MG TABLET PO (08:46)
[2020-11-26 10:39] LABS: Hematocrit 48.3 % (37.0-47.0); Hemoglobin 15.5 g/dL (12.0-15.0); Mean Corpuscular HGB Conc 32.1 g/dl (32-36); Mean Corpuscular Hemoglobin 30.3 pg (26-34); Mean Corpuscular Volume 94.5 fl (80-100); Mean Platelet Volume 10.7 fl (7.4-10.4); Platelet Count Result 286 k/mm3 (150-375); Red Blood Count 5.11 M/mm3 (4.2-5.4)
[2020-11-26] MEDS: SODIUM CHLORIDE 0.9% IV 1,000 ML 75 ML IV CONT (14:12)
[2020-11-26 15:41] LABS: Anion Gap 6 mmol/L (8-16); Blood Urea Nitrogen 16 mg/dL (7-17); Calcium 8.1 mg/dL (8.4-10.2); Carbon Dioxide 20 mmol/L (22-30); Chloride 108 mmol/L (98-107); Estimated CRCL calculation 44 ml/min; Estimated Glomerular Filt Rate > 60; Glucose 100 mg/dL (65-110); Potassium 4.5 mmol/L (3.4-5.0); Sodium 134 mmol/L (137-145)
--- NOTE | 2020-11-26 17:16 | PM.IMPN ---
Progress Note: A&P Assessment and Plan (1) UTI (urinary tract infection): Qualifiers: Hematuria presence: without hematuria Urinary tract infection type: site unspecified Qualified Code(s): N39.0 - Urinary tract infection, site not specified Code(s): N39.0 - Urinary tract infection, site not specified Status: Acute Assessment and Plan: UA grossly abnormal upon presentation recent ESBL UTI approximately 2 weeks ago stop ceftriaxone. Begin IV cefepime renally dosed based on susceptibilities from prior urine culture 11/07/2020 urine culture from 11/25/2020 with E coli. Awaiting susceptibilities. discontinue IV fluids. She is tolerating p.o. intake. she is afebrile. WBC 14.0 today (2) Acute metabolic encephalopathy: Code(s): G93.41 - Metabolic encephalopathy Status: Acute Assessment and Plan: Reportedly was poorly responsive at her [facility]. Change in mental status likely related to UTI Head CT with no acute findings Her baseline is unclear. She is A&O to self only at this time. She does respond all questions and remains alert throughout encounter (3) Alzheimer's dementia: Code(s): G30.9 - Alzheimer's disease, unspecified; F02.80 - Dementia in other diseases classified elsewhere without behavioral disturbance Status: Acute Assessment and Plan: continue donepezil (4) Combined systolic and diastolic cardiac dysfunction: Code(s): I51.89 - Other ill-defined heart diseases Status: Acute Assessment and Plan: Appears euvolemic on exam will discontinue IV fluids. She is tolerating p.o. intake monitor volume status closely (5) Asthma: Qualifiers: Asthma severity: mild Asthma persistence: intermittent Asthma complication type: uncomplicated Qualified Code(s): J45.20 - Mild intermittent asthma, uncomplicated Code(s): J45.909 - Unspecified asthma, uncomplicated Status: Chronic Assessment and Plan: no acute issues albuterol inhaler as needed Additional Plan PT/OT evals appreciated Subjective Date/time seen: 11/26/20 17:16 Interval history: Date of service: 11/26/2020 Mitra Clifton is an 85-year-old female with a history asthma, hypertension hyperlipidemia, and dementia who is seen in follow-up for acute UTI. she denies urinary symptoms. Denies nausea, vomiting, fever, or chills. No abdominal pain. She ate a little bit of her breakfast and lunch today. She is a poor historian given her dementia. Review of Systems Review of Systems: All systems reviewed & are unremarkable except as noted in HPI and below Exam Narrative: Ms. Clifton is A thin, frail 85-year-old female who is lying supine in bed. She appears comfortable and is in NARD. Neuro: Awake, alert and oriented to self only. Speech clear, no focal neuro deficits noted. HEENMT: normocephalic, atraumatic, EOMI, sclerae anicteric, moist oral mucosa Neck: supple, no lymphadenopathy Respiratory: clear to auscultation anteriorly, nonlabored breathing Cardio: regular rate, regular rhythm Abdomen: nondistended, normoactive bowel sounds, soft, nontender to palpation Extremities: no edema, erythema, or tenderness to palpation, DP pulses 2+ bilaterally Skin: no rashes or lesions, warm and dry Psych: appropriate mood and affect, judgment and insight poor Objective Data Vital Signs Vital Signs: Vital Signs - 24 hr 11/25/20 20:50 11/25/20 21:16 11/25/20 22:01 Temperature 97.0 F L Pulse Rate 89 91 94 Respiratory Rate 19 24 H 15 Blood Pressure 101/71 102/66 105/66 Pulse Oximetry 100 96 11/25/20 22:54 11/25/20 23:16 11/26/20 00:16 Temperature Pulse Rate 90 87 82 Respiratory Rate 16 22 H 14 Blood Pressure 120/75 116/98 H 100/60 Pulse Oximetry 95 96 11/26/20 01:01 11/26/20 01:16 11/26/20 01:31 Temperature Pulse Rate 87 96 87 Respiratory Rate 16 17
[2020-11-26] MEDS: traZODone HCL 50 MG TABLET 100 MG PO (20:54)
[2020-11-26] MEDS: MONTELUKAST SODIUM 10 MG TABLET PO (20:54)
[2020-11-26] MEDS: DONEPEZIL HCL 5 MG TABLET PO (20:55)
[2020-11-27] VITALS (7 sets, daily range): BP systolic 148–174; BP diastolic 72–96; PULSE 68–116; RESP 15–18; TEMP 36–36.7; O2SAT 96–98
[2020-11-27] MEDS: SODIUM CHLORIDE 0.9% IV 1,000 ML 75 ML IV CONT (05:56)
[2020-11-27 06:04] LABS: Basophils Percent Auto 0.6 % (0.2-1.2); Eosinophils Absolute Auto 0.2 K/mm3 (0-0.3); Eosinophils Percent Auto 2.7 % (0-4.4); Hematocrit 38.1 % (37.0-47.0); Hemoglobin 12.9 g/dL (12.0-15.0); Immature Granulocyte Absolute 0.03 K/mm3 (0.00-0.031); Immature Granulocyte Percent A 0.4 % (0-0.5); Lymphocytes Absolute Auto 1.22 K/mm3 (0.9-3.2); Lymphocytes Percent Auto 17.1 % (18.3-44.2); Mean Corpuscular HGB Conc 33.9 g/dl (32-36); Mean Corpuscular Hemoglobin 30.1 pg (26-34); Mean Platelet Volume 10.1 fl (7.4-10.4); Monocytes Absolute Auto 0.4 K/mm3 (0.1-0.6); Monocytes Percent Auto 5.3 % (2.6-8.5); Neutrophils Absolute Auto 5.3 K/mm3 (1.3-6.7); Neutrophils Percent Auto 73.9 % (45.5-73.1); Platelet Count Result 205 k/mm3 (150-375); Red Blood Count 4.28 M/mm3 (4.2-5.4); Red Cell Distribution Width 12.3 % (11.5-14.5); White Blood Count 7.1 K/mm3 (4.5-10.0)
[2020-11-27 06:22] LABS: Anion Gap 5 mmol/L (8-16); Blood Urea Nitrogen 7 mg/dL (7-17); Calcium 8.9 mg/dL (8.4-10.2); Carbon Dioxide 23 mmol/L (22-30); Chloride 108 mmol/L (98-107); Estimated CRCL calculation 50 ml/min; Estimated Glomerular Filt Rate > 60; Glucose 89 mg/dL (65-110); Potassium 3.9 mmol/L (3.4-5.0); Sodium 136 mmol/L (137-145)
[2020-11-27] MEDS: CHOLECALCIFEROL 1,000 UNITS TABLET 1000 UNITS PO (08:01)
[2020-11-27] MEDS: VALSARTAN 80 MG TABLET PO (08:01)
[2020-11-27] MEDS: ENOXAPARIN 40 MG/0.4 ML SYRINGE SUB-Q (08:02)
[2020-11-27] MEDS: POTASSIUM CHLORIDE 20 MEQ PACKET (FOR LIQUID) PO (08:02)
[2020-11-27] MEDS: PANTOPRAZOLE 40 MG TABLET PO (08:02)
--- NOTE | 2020-11-27 14:45 | PM.DS ---
DS: Summary Time Spent with Patient Time attestation: Total time spent providing and/or coordinating discharge services: Exam Narrative: Ms. Clifton is a thin, frail 85-year-old female who is lying supine in bed. She appears comfortable and is in NARD. Neuro: Awake, alert and oriented to self and location. Speech clear, no focal neuro deficits noted. Pleasantly confused. HEENMT: Normocephalic, atraumatic, EOMI, sclerae anicteric, moist oral mucosa Neck: supple, no lymphadenopathy Respiratory: clear to auscultation anteriorly, nonlabored breathing Cardio: regular rate, regular rhythm Abdomen: nondistended, normoactive bowel sounds, soft, nontender to palpation Extremities: no edema, erythema, or tenderness to palpation, DP pulses 2+ bilaterally Skin: no rashes or lesions, warm and dry Psych: appropriate mood and affect, judgment and insight poor DS: Data Data Completed and Pending Labs on day of discharge: Labs from last 24 hours 11/27/20 11/27/20 11/26/20 05:36 05:36 04:50 WBC 7.1 RBC 4.28 Hgb 12.9 Hct 38.1 MCV 89.0 D MCH 30.1 MCHC 33.9 RDW 12.3 Plt Count 205 MPV 10.1 Immature Gran % (Auto) 0.4 Neut % (Auto) 73.9 H Lymph % (Auto) 17.1 L Beauregard % (Auto) 5.3 Eos % (Auto) 2.7 Baso % (Auto) 0.6 Lymph # (Auto) 1.22 Beauregard # (Auto) 0.4 Eos # (Auto) 0.2 Baso # (Auto) 0.0 Abs Immat Gran (auto) 0.03 Absolute Neuts (auto) 5.3 Absolute Nucleated RBC 0.0 Nucleated RBC % 0.0 Sodium 136 L 134 L Potassium 3.9 4.5 Chloride 108 H 108 H Carbon Dioxide 23 20 L Anion Gap 5 L 6 L BUN 7 D 16 Creatinine 0.60 L 0.70 Estim Creat Clear Calc 50 44 Estimated GFR > 60 > 60 Glucose 89 100 Calcium 8.9 8.1 L Discharge Plan Discharge Attending physician on discharge: Rui Gallegos Discharging Clinician: Yanet Hubbard Patient Disposition: Home, Self-Care Activity: as tolerated Diet: regular Discharge Instructions: Hospitalist discharge instructions: You were found to have a urinary tract infection and have been treated with IV antibiotics. You will continue taking antibiotics by mouth (see below). Monitor for symptoms of worsened infection which include burning with urination, blood in your urine, urgency, frequency, lower abdominal pain, pain in your sides or back, fever, or chills. Use caution at home to avoid falls. Rise slowly from a seated or lying position and take a pause before getting up. Always use your walker or cane, even when going only short distances. Call your doctor or proceed to the emergency department if you have any worrisome signs or symptoms including shortness of breath, cough, dizziness, lightheadedness, or weakness. Call 911 if you have any life-threatening symptoms. Medication information: Begin taking an antibiotic called cefdinir 2 times per day for 5 days. Make sure you complete this entire course of antibiotic, even if you begin to feel better. Begin taking a probiotic with your antibiotic continue other medications as prescribed. No additional changes have been made. Follow-up information: You should schedule an appointment with your primary care provider in 1-2 weeks to discuss your hospital stay. Call their office to schedule this appointment. Patient Instructions: Antibiotic Form, Ceftriaxone (By injection), Heart Failure (DC), Urinary Tract Infection in Women (DC), Pain Management (DC), Altered Mental Status (GEN), Fall Prevention (DC) Stand Alone Forms: General Discharge Information Follow-up/Referrals: Christian,Mook Tim MD [Primary Care Provider] - 1 Week Discharge Medications: New cefdinir 300 mg capsule 300 mg PO Q12H Qty: 10 RF: 0 Saccharomyces boulardii 250 mg capsule 250 mg PO BID Qty: 20 RF: 0 Continued valsartan 80 mg tablet 80 mg PO DAILY RF: 0 Hold Instructions: until seen by her primary care provid
--- NOTE | 2020-11-27 16:28 | PM.IMPN ---
Progress Note: A&P Assessment and Plan (1) UTI (urinary tract infection): Qualifiers: Hematuria presence: without hematuria Urinary tract infection type: site unspecified Qualified Code(s): N39.0 - Urinary tract infection, site not specified Code(s): N39.0 - Urinary tract infection, site not specified Status: Acute Assessment and Plan: UA grossly abnormal upon presentation urine culture with growth of E coli started on IV cefepime given recent ESBL from prior urine culture several weeks ago. continue IV cefepime based on susceptibility results stop ceftriaxone. Begin IV cefepime renally dosed based on susceptibilities from prior urine culture 11/07/2020 she is afebrile and leukocytosis has resolved (2) Acute metabolic encephalopathy: Code(s): G93.41 - Metabolic encephalopathy Status: Acute Assessment and Plan: Reportedly was poorly responsive at her long-term. Change in mental status likely related to UTI Head CT with no acute findings She is A&O to self and location. Appears to be back at her baseline. 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: Code(s): I51.89 - Other ill-defined heart diseases Status: Acute Assessment and Plan: Appears euvolemic on exam monitor volume status closely (5) Asthma: Qualifiers: Asthma severity: mild Asthma persistence: intermittent Asthma complication type: uncomplicated Qualified Code(s): J45.20 - Mild intermittent asthma, uncomplicated Code(s): J45.909 - Unspecified asthma, uncomplicated Status: Chronic Assessment and Plan: no acute issues albuterol inhaler as needed (6) Fall: Code(s): W19.XXXA - Unspecified fall, initial encounter Status: Acute Assessment and Plan: She climbed over her bed rail and was found down on the ground, sitting on her bottom. Unwitnessed fall. will check a head CT as it is unclear if she hit her head. She has been on Lovenox and need to ensure no intracranial bleed no obvious injuries or pain fall precautions appreciate PT/OT eval Subjective Date/time seen: 11/27/20 16:28 Interval history: Date of service: 11/27/2020 Mitra Clifton is an 85-year-old female with a history asthma, hypertension hyperlipidemia, and dementia who is seen in follow-up for acute UTI. She is a poor historian given her dementia. She will say yes or no to most questions but does not appear to comprehend the question and will occasionally answer yes or no to open ended questions. Spoke with patient's age who notes that she ate breakfast and lunch independently. she was able to get up and walk with therapy today. Of note, I was called to the patient's room at approximately 1615 as the patient was found on the ground sitting on her bottom. It appears that she climbed over the side rail and fell from the bed. Episode was unwitnessed, so unclear if she fell or hit her head. No injuries appreciated on thorough exam. she denied pain. Review of Systems Review of Systems: All systems reviewed & are unremarkable except as noted in HPI and below Exam Narrative: Ms. Clifton is a thin, frail 85-year-old female who is lying supine in bed. She appears comfortable and is in NARD. Neuro: Awake, alert and oriented to self and location. Speech clear, no focal neuro deficits noted. Pleasantly confused. HEENMT: Normocephalic, atraumatic, EOMI, sclerae anicteric, moist oral mucosa Neck: supple, no lymphadenopathy Respiratory: clear to auscultation anteriorly, nonlabored breathing Ca
--- NOTE | 2020-11-27 17:15 | PC.NURSE ---
Patient was moved from room 348 to room 343 so patient was across from nurses station.
--- NOTE | 2020-11-27 19:40 | PC.NURSE ---
Pt off floor to CT.
--- NOTE | 2020-11-27 20:17 | PC.NURSE ---
Pt back from CT. Pt comfortable, bed alarm on.
[2020-11-27] MEDS: traZODone HCL 50 MG TABLET 100 MG PO (21:56)
[2020-11-27] MEDS: MONTELUKAST SODIUM 10 MG TABLET PO (21:56)
[2020-11-27] MEDS: DONEPEZIL HCL 5 MG TABLET PO (21:56)
[2020-11-28 06:00] VITALS: BP 140/63; PULSE 88; RESP 16; TEMP 36.6; O2SAT 96
[2020-11-28 06:08] LABS: Hematocrit 39.7 % (37.0-47.0); Hemoglobin 13.6 g/dL (12.0-15.0); Mean Corpuscular HGB Conc 34.3 g/dl (32-36); Mean Corpuscular Volume 87.6 fl (80-100); Mean Platelet Volume 9.9 fl (7.4-10.4); Platelet Count Result 223 k/mm3 (150-375); Red Blood Count 4.53 M/mm3 (4.2-5.4); Red Cell Distribution Width 12.3 % (11.5-14.5); White Blood Count 6.9 K/mm3 (4.5-10.0)
[2020-11-28 06:26] LABS: Anion Gap 6 mmol/L (8-16); Blood Urea Nitrogen 7 mg/dL (7-17); Calcium 9.3 mg/dL (8.4-10.2); Carbon Dioxide 22 mmol/L (22-30); Chloride 105 mmol/L (98-107); Estimated CRCL calculation 44 ml/min; Estimated Glomerular Filt Rate > 60; Glucose 95 mg/dL (65-110); Potassium 3.7 mmol/L (3.4-5.0); Sodium 133 mmol/L (137-145)
[2020-11-28] MEDS: ENOXAPARIN 40 MG/0.4 ML SYRINGE SUB-Q (08:55)
[2020-11-28] MEDS: PANTOPRAZOLE 40 MG TABLET PO (08:55)
[2020-11-28] MEDS: CHOLECALCIFEROL 1,000 UNITS TABLET 1000 UNITS PO (08:55)
[2020-11-28] MEDS: VALSARTAN 80 MG TABLET PO (08:55)
[2020-11-28] MEDS: POTASSIUM CHLORIDE 20 MEQ PACKET (FOR LIQUID) PO (08:55)
--- NOTE | 2020-11-28 11:31 | PM.DS ---
DS: Admitting Diagnosis Admitting Diagnosis UTI DS: Discharge Diagnosis Discharge Diagnosis (1) UTI (urinary tract infection): Qualifiers: Hematuria presence: without hematuria Urinary tract infection type: site unspecified Qualified Code(s): N39.0 - Urinary tract infection, site not specified Code(s): N39.0 - Urinary tract infection, site not specified Status: Acute Assessment and Plan: UA grossly abnormal upon presentation started on IV cefepime given recent ESBL from prior urine culture several weeks ago. urine culture with growth of >100k E coli transitioned to p.o. cefdinir which she will continue to complete a full course of antibiotics as an outpatient she remained afebrile and leukocytosis resolved (2) Acute metabolic encephalopathy: Code(s): G93.41 - Metabolic encephalopathy Status: Acute Assessment and Plan: Reportedly was poorly responsive at her snf. Change in mental status likely related to UTI Head CT with no acute findings She was at her baseline on my encounters. Remained A&O to self and location. She responded to all questions appropriately and remained alert throughout encounter. 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 No issues. (5) Asthma: Qualifiers: Asthma severity: mild Asthma persistence: intermittent Asthma complication type: uncomplicated Qualified Code(s): J45.20 - Mild intermittent asthma, uncomplicated Code(s): J45.909 - Unspecified asthma, uncomplicated Status: Chronic Assessment and Plan: No acute issues. Continue albuterol inhaler as needed (6) Fall: Code(s): W19.XXXA - Unspecified fall, initial encounter Status: Acute Assessment and Plan: On 11/27/2020 as discharge was being planned, she climbed over her bed rail and was found down on the ground, sitting on her bottom. Unwitnessed fall. Discharge was held an additional day. Head CT evaluated as it is unclear if she had her head was negative any acute findings. No injuries from fall. Continue with fall precautions and continue PT/ OT to promote safety with mobility. DS: Summary Hospital Course Hospital Course: Date of admission: 11/26/2020 date of discharge: 11/28/2020 Mitra Verde is an 85-year-old female with a history of asthma, hypertension hyperlipidemia, and dementia Who presented to the emergency department on 11/26/2020 from SNF due to decreased responsiveness. 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 She was admitted to the hospitalist service for further evaluation and management. Please see above for further details. She was treated for UTI with IV antibiotics and will continue course of p.o. antibiotics as an outpatient. Continue with therapy at SNF. She was at her baseline mental status. I spoke with her [id number] via phone to reiterate worrisome signs and symptoms for which to return and educated on her new medications. Given her overall improvement, she was determined to no longer require inpatient care and was felt to be stable for discharge. She was discharged in hemodynamically stable condition on 11/28/2020.
[2020-11-28] MEDS: CEFDINIR 300 MG CAPSULE PO (11:58)
--- NOTE | 2020-11-28 12:13 | PC.NURSE ---
Report given to Idalia JOSEPH at [facility].
== END 2020-11-28 12:50 ==
LOC: ANHED 11-26 00:50 → ANH3MED 11-26 01:38
PROVIDERS: Physician Assistant; Admitting Provider Internal Medicine; Emergency Provider Emergency Medicine; PCP Internal Medicine; Visit Provider Internal Medicine
DX: N39.0 Urinary tract infection, site not specified (principal); G93.41 Metabolic encephalopathy; G30.9 Alzheimer's disease, unspecified; I11.9 Hypertensive heart disease without heart failure; E78.5 Hyperlipidemia, unspecified; J45.909 Unspecified asthma, uncomplicated; W19.XXXA Unspecified fall, initial encounter; Z85.42 Personal history of malignant neoplasm of other parts of uterus; Z96.653 Presence of artificial knee joint, bilateral; Z66 Do not resuscitate; Z86.73 Personal history of transient ischemic attack (TIA), and cerebral infarction without residual deficits
CPT/HCPCS: 36415; 70450; 71045; 80048; 80053; 81001; 83605; 84484; 85025; 85027; 87077; 87086; 87186; 93005; 94640; 96361; 96365; 96367; 96372; 97162; 97165; 99285; A9270; G0378; J0692; J0696; J1650; J7030